=== PATIENT | female | born 1970 | race Caucasian/White ===

== ENCOUNTER 2018-01-07 16:01 | Emergency (ER) | payer OTHER ==
--- NOTE | 2018-01-07 16:42 | EDPHYS ---
Physician Documentation [facility] Name: Bethany Saeed Age: 47 yrs Sex: Female : 1970 Arrival Date: 01/07/2018 Time: 16:03 Bed 6 Private MD: Jorje Carrizales E ED Physician Alex Cuadra HPI: 01/08 02:09 This 47 yrs old Female presents to ER via Ambulatory with complaints of jr8 Facial pain. 02:09 Onset: The symptoms/episode began/occurred gradually, 2 day(s) ago. Severity of jr8 symptoms: At their worst the symptoms were moderate in the emergency department the symptoms are unchanged. The patient has not experienced similar symptoms in the past. The patient has not recently seen a physician. Patient stated that her face on right side started to hurt. Denies fevers. Stated that she could not tolerate pain. Had been using ibuprofen with moderate relief . 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 - Social history:: Smoking status: Patient uses tobacco products, smokes one-half pack cigarettes per day. - Ebola Screening: : No symptoms or risks identified at this time. ROS: 01/08 02:09 Eyes: Negative for injury, pain, redness, and discharge, Neck: Negative for injury, jr8 pain, and swelling, Cardiovascular: Negative for chest pain, palpitations, and edema, Respiratory: Negative for shortness of breath, cough, wheezing, and pleuritic chest pain, Abdomen/GI: Negative for abdominal pain, nausea, vomiting, diarrhea, and constipation, Back: Negative for injury and pain, MS/Extremity: Negative for injury and deformity, Skin: Negative for injury, rash, and discoloration, Neuro: Negative for headache, weakness, numbness, tingling, and seizure. 02:09 ENT: Positive for ear pain, nasal discharge, sinus congestion, sinus pain, Negative for jr8 drainage from ear(s), sore throat, difficulty swallowing, difficulty handling secretions, hoarseness. Exam: 02:09 Head/Face: Normocephalic, atraumatic. Eyes: Pupils equal round and reactive to light, jr8 extra-ocular motions intact. Lids and lashes normal. Conjunctiva and sclera are non-icteric and not injected. Cornea within normal limits. Periorbital areas with no swelling, redness, or edema. ENT: Nares patent. No nasal discharge, no septal abnormalities noted. Tympanic membranes are normal and external auditory canals are clear. Oropharynx with no redness, swelling, or masses, exudates, or evidence of obstruction, uvula midline. Mucous membranes moist. Neck: Trachea midline, no thyromegaly or masses palpated, and no cervical lymphadenopathy. Supple, full range of motion without nuchal rigidity, or vertebral point tenderness. No Meningismus. Cardiovascular: Regular rate and rhythm with a normal S1 and S2. No gallops, murmurs, or rubs. Normal PMI, no JVD. No pulse deficits. Respiratory: Lungs have equal breath sounds bilaterally, clear to auscultation and percussion. No rales, rhonchi or wheezes noted. No increased work of breathing, no retractions or nasal flaring. Abdomen/GI: Soft, non-tender, with normal bowel sounds. No distension or tympany. No guarding or rebound. No evidence of tenderness throughout. Back: No spinal tenderness. No costovertebral tenderness. Full range of motion. Skin: Warm, dry with normal turgor. Normal color with no rashes, no lesions, and no evidence of cellulitis. MS/ Extremity: Pulses equal, no cyanosis. Neurovascular intact. Full, normal range of motion. Neuro: Awake and alert, GCS 15, oriented to person, place, time, and situation. Cranial nerves II-XII grossly intact. Motor strength 5/5 in all extremities. Sensory grossly intact. Cerebellar exam normal. Normal gait. Vital Signs: 01/07 16:20 BP 122 / 82; Pulse 101; Resp 18; Temp 97.1; Pulse Ox 97% on R/A; Weight 117.93 kg; jb4 Height 5 ft. 6 in. (167.64 cm); Pain 3/10; 16:20 Body Mass Index 41.96 (117.93 kg, 167.64 cm) jake MDM: 16:20 Patient medically screened. jr8 16:39 Data reviewed: vital signs, nurses notes, and as a result, I will discharge patient. jr8 Data interpreted: Pulse oximetry: on room air is 100 %. Interpretation: normal. Counseling: I had a detailed discussion with the patient and/or guardian regarding: the historical points, exam findings, and any diagnostic results supporting the discharge/admit diagnosis, the need for outpatient follow up, a dentist, a family practitioner, to return to the emergency department if symptoms worsen or persist or if there are any questions or concerns that arise at home. 16:39 ED course: TMJ pain, otitis externa, otitis media, cellulitis, dentalgia, dental jr8 abscess, sinus infection, lymphadenitis, zoster, trigeminal neuralgia, parotiditis . Administered Medications: No medications were administered Disposition: 18:46 Co-signature as Attending Physician, Alex Cuadra MD. Disposition: 01/07/18 16:41 Discharged to Home. Impression: Atypical facial pain, Acute sinusitis. - Condition is Stable. - Discharge Instructions: Pain Without a Known Cause, Sinusitis, Adult. - Prescriptions for Ibuprofen 800 mg Oral Tablet - take 1 tablet by ORAL route every 8 hours As needed take with food; 30 tablet. Zithromax Z- Víctor 250 mg Oral Tablet - take 1 tablet by ORAL route as directed for 5 days Day 1 - take two (2) tablets one time. Day 2, 3, 4 , 5 take one (1) tablet once daily.; 6 tablet. - Medication Reconciliation Form, Thank You Letter, Antibiotic Education, Prescription Opioid Use form. - Follow up: Jorje Carrizales MD; When: 5 - 6 days; Reason: Recheck today's complaints, Continuance of care, Re-evaluation by your physician. - Problem is new. - Symptoms have improved. Signatures: Magen Mix PA PA jr8 Manav Jim, RN RN Alex Ly MD MD Corrections: (The following items were deleted from the chart) 16:42 16:20 Immunization history: Adult Immunizations Last tetanus immunization: unknown, jake joseph 16:47 16:41 01/07/2018 16:41 Discharged to Home. Impression: Atypical facial pain; Acute jb4 sinusitis. Condition is Stable. Forms are Medication Reconciliation Form, Thank You Letter, Antibiotic Education, Prescription Opioid Use. Follow up: Jorje Carrizales; When: 5 - 6 days; Reason: Recheck today's complaints, Continuance of care, Re-evaluation by your physician. Problem is new. Symptoms have improved. jr8 01/08 02:12 02:09 Eyes: Negative for injury, pain, redness, and discharge, ENT: Negative for jr8 injury, pain, and discharge, Neck: Negative for injury, pain, and swelling, Cardiovascular: Negative for chest pain, palpitations, and edema, Respiratory: Negative for shortness of breath, cough, wheezing, and pleuritic chest pain, Abdomen/GI: Negative for abdominal pain, nausea, vomiting, diarrhea, and constipation, Back: Negative for injury and pain, MS/Extremity: Negative for injury and deformity, Skin: Negative for injury, rash, and discoloration, Neuro: Negative for headache, weakness, numbness, tingling, and seizure, jr8
--- NOTE | 2018-01-07 16:42 | ER ---
Nurse's Notes [facility] Name: Bethany Saeed Age: 47 yrs Sex: Female : 1970 Arrival Date: 01/07/2018 Time: 16:03 Bed 6 Private MD: Jorje Carrizales E Diagnosis: Atypical facial pain;Acute sinusitis Presentation: 01/07 16:25 Presenting complaint: Patient states: The right side of my face hurts and I do not know jb4 if it's tooth related or a sinus issue.". Transition of care: patient was received from another setting of care (hospital). Onset of symptoms was January 04, 2018. 16:25 Method Of Arrival: Ambulatory jb4 16:25 Risk Assessment: Do you want to hurt yourself or someone else? Patient reports no jb4 desire to harm self or others. Initial Sepsis Screen: Does the patient meet any 2 criteria? HR > 90 bpm. Yes Does the patient have a suspected source of infection? No. Patient's initial sepsis screen is negative. Care prior to arrival: None. 16:25 Acuity: ROE 4 jb4 Triage Assessment: 16:20 General: Appears in no apparent distress. uncomfortable, Behavior is calm, cooperative, jb4 appropriate for age. Pain: Complains of pain in Right side of the face. 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 - Social history:: Smoking status: Patient uses tobacco products, smokes one-half pack cigarettes per day. - Ebola Screening: : No symptoms or risks identified at this time. Screenin:39 Abuse screen: Denies threats or abuse. Nutritional screening: No deficits noted. jb4 Tuberculosis screening: No symptoms or risk factors identified. Fall Risk None identified. Assessment: 16:28 General: Appears in no apparent distress. uncomfortable, Behavior is calm, cooperative, jb4 appropriate for age. Pain: Complains of pain in Right side of the face Pain does not radiate. Pain currently is 3 out of 10 on a pain scale. at worst was 7 out of 10 on a pain scale. Quality of pain is described as throbbing, Pain began 2-3 days ago. Is intermittent. Neuro: Level of Consciousness is awake, alert, obeys commands, Oriented to person, place, time, situation. Cardiovascular: Patient's skin is warm and dry. Respiratory: Airway is patent Respiratory effort is even, unlabored, Respiratory pattern is regular, symmetrical. GI: No signs and/or symptoms were reported involving the gastrointestinal system. : No signs and/or symptoms were reported regarding the genitourinary system. EENT: Oral mucosa is moist. Poor dentition noted. Throat is clear. Derm: Skin is intact, Skin is pink, warm \\T\\ dry. Musculoskeletal: No signs and/or symptoms reported regarding the musculoskeletal system. Vital Signs: 16:20 BP 122 / 82; Pulse 101; Resp 18; Temp 97.1; Pulse Ox 97% on R/A; Weight 117.93 kg; jb4 Height 5 ft. 6 in. (167.64 cm); Pain 3/10; 16:20 Body Mass Index 41.96 (117.93 kg, 167.64 cm) jb4 ED Course: 16:03 Patient arrived in ED. mr 16:04 Jorje Carrizales MD is Private Physician. mr 16:20 Manav Jim, RN is Primary Nurse. jb4 16:20 [facility]agen Mix [facility]. jr8 16:20 Alex Cuadra MD is Attending Physician. jr8 16:20 Arm band placed on left wrist. jb4 16:33 Triage completed. jb4 16:39 Patient has correct armband on for positive identification. Bed in low position. Call jb4 light in reach. Side rails up X 1. Pulse ox on. NIBP on. 16:41 Jorje Carrizales MD is Referral Physician. jr8 16:46 No provider procedures requiring assistance completed. Patient did not have IV access jb4 during this emergency room visit. Administered Medications: No medications were administered Outcome: 16:41 Discharge ordered by . jr8 16:46 Discharged to home ambulatory. jb4 16:46 Condition: stable 16:46 Discharge instructions given to patient, Instructed on discharge instructions, follow up and referral plans. medication usage, Demonstrated understanding of instructions, follow-up care, medications, Prescriptions given X 2. 16:47 Patient left the ED. jb4 Signatures: Stefanie Araujo Josh, PA PA jr8 Manav Jim RN RN jb4 Corrections: (The following items were deleted from the chart) 16:42 16:20 Immunization history: Adult Immunizations Last tetanus immunization: unknown, jbDolores jb4
[2018-01-07 17:03] VITALS: BP 122/82; TEMP 97.1; O2SAT 97
== END 2018-01-07 16:47 | disposition home or self-care (01) ==
LOC: ER 16:01
DX: G50.1 Atypical facial pain (principal); J01.90 Acute sinusitis, unspecified; F17.210 Nicotine dependence, cigarettes, uncomplicated; Z88.0 Allergy status to penicillin; Z88.2 Allergy status to sulfonamides; E03.9 Hypothyroidism, unspecified; E11.40 Type 2 diabetes mellitus with diabetic neuropathy, unspecified; L40.9 Psoriasis, unspecified
CPT/HCPCS: 99283

== ENCOUNTER 2019-02-11 14:01 | Emergency (ER) | payer OTHER ==
--- NOTE | 2019-02-11 14:46 | RAD REPORT ---
EXAM DESCRIPTION: RAD - Ankle Right 3 View - 02/11/2019 2:31 pm CLINICAL HISTORY: Persistent common non traumatic right ankle pain COMPARISON: None. FINDINGS: No fracture, dislocation or periosteal reaction. No joint effusion seen. No joint space na rrowing. Moderate-sized plantar spur present. No soft tissue abnormality. IMPRESSION: Moderate-sized plantar spur of the right calcaneus.
--- NOTE | 2019-02-11 15:07 | ER ---
Nurse's Notes [facility] Name: Bethany Saeed Age: 48 yrs Sex: Female : 1970 Arrival Date: 02/11/2019 Time: 14:04 Bed 15 Private MD: Jorje Carrizales E Diagnosis: Pain in right foot Presentation: 02/11 14:07 Presenting complaint: Patient states: I have been having pain in my right foot for a la1 month or two. Transition of care: patient was not received from another setting of care. Onset of symptoms was February 11, 2019. Risk Assessment: Do you want to hurt yourself or someone else? Patient reports no desire to harm self or others. Initial Sepsis Screen: Does the patient meet any 2 criteria? No. Patient's initial sepsis screen is negative. Does the patient have a suspected source of infection? No. Patient's initial sepsis screen is negative. Care prior to arrival: None. 14:07 Method Of Arrival: Ambulatory la1 14:07 Acuity: ROE 4 la1 Historical: - Allergies: 14:07 PENICILLINS; la1 14:07 Sulfa (Sulfonamide Antibiotics); la1 - PMHx: 14:07 Bronchitis; Hypothyroidism; neuropathy; NIDDM,; psorasis; la1 - Immunization history:: Adult Immunizations up to date. - Social history:: Smoking status: Patient/guardian denies using tobacco. - Ebola Screening: : No symptoms or risks identified at this time. Screenin:15 Abuse screen: Denies threats or abuse. Nutritional screening: No deficits noted. rb1 Tuberculosis screening: No symptoms or risk factors identified. Fall Risk No fall in past 12 months (0 pts). Secondary diagnosis (15 points) impaired mobility, No IV (0 pts). Ambulatory Aid- None/Bed Rest/Nurse Assist (0 pts). Gait- Impaired (20 pts.). Mental Status- Oriented to own ability (0 pts). Total Quinn Fall Scale indicates Low Risk Score (25-44 pts). Fall prevention measures have been instituted. Side Rails Up X 2 Placed close to Nursing Station 1:1 attendant Assigned to Pt. Frequent Obs/Assesments occuring As available Patient and Family Educated on Fall Prevention Program and strategies. Assessment: 14:15 General: Appears in no apparent distress. comfortable, Behavior is calm, cooperative. rb1 Pain: Complains of pain in right ankle Pain currently is 8 out of 10 on a pain scale. Neuro: Level of Consciousness is awake, alert, obeys commands, Oriented to person, place, time, situation, Reports numbness in right leg and left leg tingling. Cardiovascular: Capillary refill < 3 seconds is brisk in bilateral fingers. Respiratory: Airway is patent Respiratory effort is even, unlabored, Respiratory pattern is regular, symmetrical. GI: No signs and/or symptoms were reported involving the gastrointestinal system. : No signs and/or symptoms were reported regarding the genitourinary system. Derm: Skin is pink, warm \T\ dry. Musculoskeletal: wears braces on bilateral lower extremities. Pt. reports not being able to walk without them. 15:15 Reassessment: Patient appears in no apparent distress at this time. No changes from rb1 previously documented assessment. Vital Signs: 14:09 Pulse 88; Resp 16; Temp 97.1; Pulse Ox 100% on R/A; Weight 108.41 kg; Height 5 ft. 7 la1 in. (170.18 cm); 14:10 BP 123 / 89; la1 15:09 BP 134 / 98; Pulse 94; Resp 19; Temp 97.9(O); Pulse Ox 100% on R/A; Pain 8/10; rb1 14:09 Body Mass Index 37.43 (108.41 kg, 170.18 cm) la1 ED Course: 14:04 Patient arrived in ED. mr 14:05 Jorje Carrizales MD is Private Physician. mr 14:05 Annie Rodríguez FNP-C is [facility]. kb 14:05 Volodymyr Akhtar MD is Attending Physician. kb 14:08 Triage completed. la1 14:08 Arm band placed on left wrist. la1 14:15 Patient has correct armband on for positive identification. Bed in low position. Call rb1 light in reach. Side rails up X 1. Pulse ox on. NIBP on. 14:30 Ankle Right 3 View In Process Unspecified. EDMS 14:59 Vonnie Germain, RN is Primary Nurse. rb1 15:42 No provider procedures requiring assistance completed. Patient did not have IV access rb1 during this emergency room visit. Administered Medications: 15:35 Drug: traMADol 50 mg Route: PO; rb1 15:42 Follow up: Response: Medication administered at discharge. rb1 Outcome: 15:06 Discharge ordered by . kb 15:42 Patient left the ED. rb1 15:42 Discharged to home ambulatory. rb1 15:42 Condition: stable 15:42 Discharge instructions given to patient, Instructed on discharge instructions, follow up and referral plans. Demonstrated understanding of instructions, follow-up care, Prescriptions given X none Signatures: Dispatcher [employer] EDMS Annie Rodríguez, DANUTA COLEMAN-Dori Laguna Lee, RN RN la1 Vonnie Germain, RN RN rb1
--- NOTE | 2019-02-11 15:07 | EDPHYS ---
Physician Documentation [facility] Name: Bethany Saeed Age: 48 yrs Sex: Female : 1970 Arrival Date: 02/11/2019 Time: 14:04 Bed 15 Private MD: Jorje Carrizales E ED Physician Volodymyr Akhtar HPI: 02/11 15:24 This 48 yrs old Female presents to ER via Ambulatory with complaints of Foot kb Pain. 15:24 The patient presents with pain. The complaints affect the right foot. Context: The kb problem was sustained at an unknown location, the patient can fully bear weight, the patient is able to ambulate. Onset: The symptoms/episode began/occurred 2 week(s) ago. Modifying factors: The symptoms are alleviated by nothing, the symptoms are aggravated by nothing. Associated signs and symptoms: The patient has no apparent associated signs or symptoms. Severity of symptoms: At their worst the symptoms were moderate, in the emergency department the symptoms are unchanged. The patient has not experienced similar symptoms in the past. The patient has not recently seen a physician. Historical: - Allergies: 14:07 PENICILLINS; la1 14:07 Sulfa (Sulfonamide Antibiotics); la1 - PMHx: 14:07 Bronchitis; Hypothyroidism; neuropathy; NIDDM,; psorasis; la1 - Immunization history:: Adult Immunizations up to date. - Social history:: Smoking status: Patient/guardian denies using tobacco. - Ebola Screening: : No symptoms or risks identified at this time. ROS: 15:19 Constitutional: Negative for fever, chills, and weight loss, Neck: Negative for injury, kb pain, and swelling, Cardiovascular: Negative for chest pain, palpitations, and edema, Respiratory: Negative for shortness of breath, cough, wheezing, and pleuritic chest pain, Abdomen/GI: Negative for abdominal pain, nausea, vomiting, diarrhea, and constipation, Back: Negative for injury and pain, Skin: Negative for injury, rash, and discoloration, Neuro: Negative for headache, weakness, numbness, tingling, and seizure. 15:19 MS/extremity: Positive for pain, of the right foot. Exam: 15:23 Constitutional: This is a well developed, well nourished patient who is awake, alert, kb and in no acute distress. Head/Face: Normocephalic, atraumatic. Neck: Trachea midline, no thyromegaly or masses palpated, and no cervical lymphadenopathy. Supple, full range of motion without nuchal rigidity, or vertebral point tenderness. No Meningismus. Chest/axilla: Normal chest wall appearance and motion. Nontender with no deformity. No lesions are appreciated. Cardiovascular: Regular rate and rhythm with a normal S1 and S2. No gallops, murmurs, or rubs. Normal PMI, no JVD. No pulse deficits. Respiratory: Lungs have equal breath sounds bilaterally, clear to auscultation and percussion. No rales, rhonchi or wheezes noted. No increased work of breathing, no retractions or nasal flaring. Abdomen/GI: Soft, non-tender, with normal bowel sounds. No distension or tympany. No guarding or rebound. No evidence of tenderness throughout. Skin: Warm, dry with normal turgor. Normal color with no rashes, no lesions, and no evidence of cellulitis. MS/ Extremity: Pulses equal, no cyanosis. Neurovascular intact. Full, normal range of motion. Neuro: Awake and alert, GCS 15, oriented to person, place, time, and situation. Cranial nerves II-XII grossly intact. Motor strength 5/5 in all extremities. Sensory grossly intact. Cerebellar exam normal. Normal gait. Vital Signs: 14:09 Pulse 88; Resp 16; Temp 97.1; Pulse Ox 100% on R/A; Weight 108.41 kg; Height 5 ft. 7 la1 in. (170.18 cm); 14:10 BP 123 / 89; la1 15:09 BP 134 / 98; Pulse 94; Resp 19; Temp 97.9(O); Pulse Ox 100% on R/A; Pain 8/10; rb1 14:09 Body Mass Index 37.43 (108.41 kg, 170.18 cm) la1 MDM: 14:11 Patient medically screened. kb 15:12 Data reviewed: vital signs, nurses notes. Data interpreted: Pulse oximetry: on room air kb is 100 %. Interpretation: normal. Counseling: I had a detailed discussion with the patient and/or guardian regarding: the historical points, exam findings, and any diagnostic results supporting the discharge/admit diagnosis, radiology results, the need for outpatient follow up, a family practitioner, to return to the emergency department if symptoms worsen or persist or if there are any questions or concerns that arise at home. 02/11 14:29 Order name: Ankle Right 3 View; Complete Time: 15:11 EDWV Administered Medications: 15:35 Drug: traMADol 50 mg Route: PO; rb1 15:42 Follow up: Response: Medication administered at discharge. rb1 Disposition: 18:24 Co-signature as Attending Physician, Volodymyr Akhtar MD. ma2 Disposition: 02/11/19 15:06 Discharged to Home. Impression: Pain in right foot. - Condition is Stable. - Discharge Instructions: Musculoskeletal Pain. - Medication Reconciliation Form, Thank You Letter, Antibiotic Education, Prescription Opioid Use form. - Follow up: Emergency Department; When: As needed; Reason: Worsening of condition. Follow up: Private Physician; When: 2 - 3 days; Reason: Recheck today's complaints, Continuance of care, Re-evaluation by your physician. Signatures: Dispatcher [employer] [facility] Annie Rodríguez, [place]-Anayeli DIESEL ENGINEER-Francisco Carreon RN RN la1 Vonnie Germain, RN RN rb1 Volodymyr Akhtar MD MD ma2 Corrections: (The following items were deleted from the chart) 14:29 14:12 Foot Right 3 View+RAD.RAD.BRZ ordered. [facility] 15:42 15:06 02/11/2019 15:06 Discharged to Home. Impression: Pain in right foot. Condition is rb1 Stable. Forms are Medication Reconciliation Form, Thank You Letter, Antibiotic Education, Prescription Opioid Use. Follow up: Emergency Department; When: As needed; Reason: Worsening of condition. Follow up: Private Physician; When: 2 - 3 days; Reason: Recheck today's complaints, Continuance of care, Re-evaluation by your physician. kb
[2019-02-11] MEDS ORDERED: TRAMADOL HCL 50 MG TAB ONE (15:36)
[2019-02-11 16:21] VITALS: TEMP 97.1; O2SAT 100
[2019-02-11 16:22] VITALS: BP 123/89
== END 2019-02-11 15:42 | disposition home or self-care (01) ==
LOC: ER 14:01
DX: M79.671 Pain in right foot (principal); Z88.0 Allergy status to penicillin; Z88.2 Allergy status to sulfonamides
CPT/HCPCS: 99284

== ENCOUNTER 2019-06-29 21:32 | Emergency (ER) | payer OTHER ==
[2019-06-29] MEDS ORDERED: IPRATROPIUM BROM 0.5MG/2.5ML ONE (22:18)
[2019-06-29] MEDS ORDERED: ALBUTEROL 2.5 MG/3 ML NEB SOL ONE (22:18)
[2019-06-29 22:28] LABS: Absolute Lymphocytes (CBC) 3.5 K/uL (0.7-4.9); Basophils % 0.9 % (0-1.3); Hematocrit 45.4 % (36.0-45.0); Lymphocytes % 37.4 % (15.3-44.8); MPV 11.4 fL (7.6-11.3); RBC Red Blood Cell Count 4.81 M/uL (3.86-4.86)
[2019-06-29 22:31] LABS: Protime INR 1.01
[2019-06-29 22:47] LABS: ALT/SGPT 37 U/L (12-78); AST/SGOT 19 U/L (15-37); Albumin 3.3 g/dL (3.4-5.0); Alkaline Phosphatase 67 U/L (45-117); BUN Blood Urea Nitrogen 13 mg/dL (7-18); Bicarbonate 27 mmol/L (21-32); Bilirubin Direct < 0.1 mg/dL (0-0.2); Bilirubin Total 0.2 mg/dL (0.2-1.0); Glucose Level 103 mg/dL (74-106); Magnesium 2.1 mg/dL (1.8-2.4); NT PRO-BNP 6 pg/mL (<125); Potassium 3.6 mmol/L (3.5-5.1); Protein, Total 7.4 g/dL (6.4-8.2); Sodium Level 141 mmol/L (136-145); Troponin (Emerg Dept Use Only) < 0.02 ng/mL (0.0-0.045)
[2019-06-29] MEDS ORDERED: METHYLPREDNISOLONE 40 MG INJ ONE (22:55)
--- NOTE | 2019-06-30 00:20 | ER ---
Nurse's Notes [facility] Name: Bethany Saeed Age: 49 yrs Sex: Female : 1970 Arrival Date: 06/29/2019 Time: 21:35 Bed 13 Private MD: Diagnosis: Shortness of breath;Cough Presentation: 06/29 21:40 Presenting complaint: Patient states: Cough and shortness of breath since yesterday. aj1 Respirations even and unlabored, no distress noted. Denies fever. Transition of care: patient was not received from another setting of care. Onset of symptoms was June 2019. Risk Assessment: Do you want to hurt yourself or someone else? Patient reports no desire to harm self or others. Initial Sepsis Screen: Does the patient meet any 2 criteria? No. Patient's initial sepsis screen is negative. Does the patient have a suspected source of infection? No. Patient's initial sepsis screen is negative. Care prior to arrival: None. 21:40 Method Of Arrival: Ambulatory aj1 21:40 Acuity: ROE 3 aj1 Triage Assessment: 21:41 General: Appears in no apparent distress. comfortable, Behavior is calm, cooperative, aj1 appropriate for age. Pain: Denies pain. Neuro: Level of Consciousness is awake, alert, obeys commands. Cardiovascular: Patient's skin is warm and dry. Respiratory: Reports shortness of breath Airway is patent Respiratory effort is even, unlabored, Respiratory pattern is regular, symmetrical, Onset: The symptoms/episode began/occurred yesterday, the patient has mild shortness of breath. 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 - Coronavirus screen:: The patient has NOT traveled to [place], [place], or [place] in the past 14 days. - Social history:: Smoking status: Patient reports the use of cigarette tobacco products, smokes one-half pack cigarettes per day. - Ebola Screening: : Patient denies travel to an Ebola-affected area in the 21 days before illness onset. Screenin/08 00:30 Abuse screen: Denies threats or abuse. Denies injuries from another. Nutritional rv screening: No deficits noted. Tuberculosis screening: No symptoms or risk factors identified. Fall Risk None identified. Assessment: 06/29 23:30 General: Appears in no apparent distress. comfortable, Behavior is calm, cooperative. rv 23:30 Pain: Denies pain. Neuro: Level of Consciousness is awake, alert, obeys commands, rv Oriented to person, place, time, situation. Cardiovascular: Patient's skin is warm and dry. Rhythm is regular. Respiratory: Airway is patent Breath sounds with wheezes bilaterally. GI: No signs and/or symptoms were reported involving the gastrointestinal system. : Derm: No signs and/or symptoms reported regarding the dermatologic system. Skin is intact. 06/30 00:30 Reassessment: Patient and/or family updated on plan of care and expected duration. Pain rv level reassessed. Patient is alert, oriented x 3, equal unlabored respirations, skin warm/dry/pink. Respiratory: Airway is patent is compromised Breath sounds are clear bilaterally. Vital Signs: 06/29 21:41 BP 121 / 81; Pulse 89; Resp 18; Temp 97.2; Pulse Ox 99% on R/A; Weight 105.23 kg (R); aj1 Height 5 ft. 6 in. (167.64 cm) (R); Pain 0/10; 06/30 00:28 BP 118 / 79; Pulse 86; Resp 16; Pulse Ox 99% on R/A; rv 06/29 21:41 Body Mass Index 37.45 (105.23 kg, 167.64 cm) aj1 ED Course: 06/29 21:35 Patient arrived in ED. jg7 21:40 Guillermo Young PA is PHCP. cp 21:40 Guillermo Alvares MD is Attending Physician. cp 21:41 Triage completed. aj1 21:41 Arm band placed on Patient placed in an exam room. aj1 22:12 Jose Pradhan, HIRAL is Primary Nurse. rv 22:14 XRAY Chest (1 view) In Process Unspecified. EDMS 23:00 Patient has correct armband on for positive identification. Pulse ox on. NIBP on. rv 23:30 No provider procedures requiring assistance completed. Inserted saline lock: 20 gauge rv in right forearm, using aseptic technique. 06/30 00:31 IV discontinued, intact, bleeding controlled, No redness/swelling at site. Pressure rv dressing applied. Administered Medications: 06/29 22:15 Drug: Albuterol 2.5 mg Route: Inhalation; rv 22:15 Drug: AtroVENT Aerosol 0.5 mg Route: Inhalation; rv 22:58 Drug: SOLU-Medrol 80 mg Route: IVP; Site: right forearm; rv Outcome: 06/30 00:18 Discharge ordered by MD. cp 00:31 Discharged to home ambulatory, with family. rv 00:31 Condition: good 00:31 Discharge instructions given to patient, Instructed on discharge instructions, follow up and referral plans. medication usage, Demonstrated understanding of instructions, follow-up care, medications, Prescriptions given X 3. 00:32 Patient left the ED. rv Signatures: Dispatcher [employer] EDMS Scarlet Cano RN RN aj1 Guillermo Young PA PA Jose Arriaza RN RN rv Nae Doan jg7
--- NOTE | 2019-06-30 00:21 | EDPHYS ---
Physician Documentation [facility] Name: Bethany Saeed Age: 49 yrs Sex: Female : 1970 Arrival Date: 06/29/2019 Time: 21:35 Bed 13 Private MD: ED Physician Guillermo Alvares HPI: 06/29 22:05 This 49 yrs old Female presents to ER via Ambulatory with complaints of cp Breathing Difficulty, Cough. 22:05 The patient has shortness of breath with light activity. Onset: The symptoms/episode cp began/occurred yesterday. Duration: The symptoms are continuous. Associated signs and symptoms: Pertinent positives: non-productive cough, Pertinent negatives: chest pain, diaphoresis, fever. Severity of symptoms: in the emergency department the symptoms are unchanged despite home interventions. 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 - Coronavirus screen:: The patient has NOT traveled to [place], [place], or [place] in the past 14 days. - Social history:: Smoking status: Patient reports the use of cigarette tobacco products, smokes one-half pack cigarettes per day. - Ebola Screening: : Patient denies travel to an Ebola-affected area in the 21 days before illness onset. ROS: 22:10 Constitutional: Negative for body aches, chills, fever, poor PO intake. cp 22:10 Eyes: Negative for injury, pain, redness, and discharge. cp 22:10 ENT: Negative for drainage from ear(s), ear pain, sore throat, difficulty swallowing, difficulty handling secretions. 22:10 Cardiovascular: Negative for chest pain, edema, palpitations. 22:10 Respiratory: Positive for cough, with no reported sputum, shortness of breath, on exertion. Negative for wheezing. 22:10 Abdomen/GI: Negative for abdominal pain, vomiting, diarrhea, constipation, black/tarry stool, rectal bleeding. 22:10 Back: Negative for pain at rest, pain with movement. 22:10 Skin: Negative for rash. 22:10 Neuro: Negative for altered mental status, headache, syncope, weakness. 22:10 All other systems are negative. Exam: 22:20 Constitutional: The patient appears in no acute distress, alert, awake, cp non-diaphoretic, non-toxic, well developed, well nourished. 22:20 Head/Face: Normocephalic, atraumatic. cp 22:20 Eyes: Periorbital structures: appear normal, Pupils: equal, round, and reactive to light and accomodation, Extraocular movements: intact throughout, Conjunctiva: normal, no exudate, no injection, Sclera: no appreciated abnormality, Lids and lashes: appear normal, bilaterally. 22:20 ENT: External ear(s): are unremarkable, Ear canal(s): are normal, clear, TM's: bulging, is not appreciated, bilaterally, dullness, bilaterally, erythema, is not appreciated, bilaterally, Nose: is normal, Mouth: Lips: moist, Oral mucosa: pink and intact, moist, Posterior pharynx: is normal, airway is patent, no erythema, no exudate. 22:20 Neck: ROM/movement: is normal, is supple, without pain, no range of motions limitations, no nuchal rigidity. 22:20 Chest/axilla: Inspection: normal, Palpation: is normal, no crepitus, no tenderness. 22:20 Cardiovascular: Rate: normal, Rhythm: regular. 22:20 Respiratory: the patient does not display signs of respiratory distress, Respirations: normal, no use of accessory muscles, no retractions, no splinting, no tachypnea, labored breathing, is not present, Breath sounds: bronchial sounds, that are mild, are heard diffusely, decreased breath sounds, that are mild, diffuse, stridor, is not appreciated, wheezing: is not appreciated. 22:20 Abdomen/GI: Exam negative for discomfort, distension, guarding, Inspection: abdomen appears normal. 22:20 Back: pain, is absent, ROM is normal. 22:20 Skin: no rash present. 22:20 Neuro: Orientation: to person, place \T\ time. Mentation: is normal, Motor: moves all fours, strength is normal. Vital Signs: 21:41 BP 121 / 81; Pulse 89; Resp 18; Temp 97.2; Pulse Ox 99% on R/A; Weight 105.23 kg (R); aj1 Height 5 ft. 6 in. (167.64 cm) (R); Pain 0/10; 06/30 00:28 BP 118 / 79; Pulse 86; Resp 16; Pulse Ox 99% on R/A; rv 06/29 21:41 Body Mass Index 37.45 (105.23 kg, 167.64 cm) aj1 MDM: 06/29 21:44 Patient medically screened. wallace 22:20 Differential diagnosis: asthma, Bronchitis CHF exacerbation, Chronic Obstructive cp Pulmonary Disease pneumonia, pulmonary edema, Pulmonary Embolism Unstable Angina. 06/30 00:18 Data reviewed: vital signs, nurses notes. cp 00:18 Antibiotic administration: Not indicated, the patient does not have an appreciated cp infiltrate. 00:18 Test interpretation: by ED physician or midlevel provider: ECG, plain radiologic cp studies. Counseling: I had a detailed discussion with the patient and/or guardian regarding: the historical points, exam findings, and any diagnostic results supporting the discharge/admit diagnosis, lab results, radiology results, the need for outpatient follow up, a family practitioner, to return to the emergency department if symptoms worsen or persist or if there are any questions or concerns that arise at home. Response to treatment: the patient's symptoms have markedly improved after treatment, VSS. Cough and shortness of breath improved after breathing treatment, and as a result, I will discharge patient. 06/29 22:03 Order name: Basic Metabolic Panel; Complete Time: 23:09 cp 06/29 23:01 Interpretation: Normal except: CL 108; GFR 51. cp 06/29 22:03 Order name: CBC with Diff; Complete Time: 22:35 cp 06/29 22:28 Interpretation: Normal except: HGB 15.3; HCT 45.4; MPV 11.4. cp 06/29 22:03 Order name: LFT's; Complete Time: 23:09 cp 02 23:01 Interpretation: Normal except: ALB 3.3; GLOB 4.1; A/G 0.8. cp 06/29 22:03 Order name: Magnesium; Complete Time: 23:09 cp 06/29 22:03 Order name: NT PRO-BNP; Complete Time: 23:09 cp 06/29 22:03 Order name: PT-INR; Complete Time: 23:09 cp / 22:03 Order name: Troponin (emerg Dept Use Only); Complete Time: 23:09 cp 06/29 22:03 Order name: XRAY Chest (1 view) cp 06/29 22:03 Order name: Influenza Screen (a \T\ B); Complete Time: 23:09 cp / 23:37 Order name: D-Dimer; Complete Time: 00:10 cp 06/30 00:10 Interpretation: Reviewed. cp 06/29 23:37 Order name: LAB Add On cp 06/29 22:03 Order name: EKG; Complete Time: 22:04 cp 06/29 22:03 Order name: Cardiac monitoring; Complete Time: 23:40 cp 06/29 22:03 Order name: EKG - Nurse/Tech; Complete Time: 23:40 cp 06/29 22:03 Order name: IV Saline Lock; Complete Time: 23:40 cp 06/29 22:03 Order name: Labs collected and sent; Complete Time: 23:40 cp 06/29 22:03 Order name: O2 Per Protocol; Complete Time: 23:41 cp 06/29 22:03 Order name: O2 Sat Monitoring; Complete Time: 23:41 cp Administered Medications: 06/29 22:15 Drug: Albuterol 2.5 mg Route: Inhalation; rv 22:15 Drug: AtroVENT Aerosol 0.5 mg Route: Inhalation; rv 22:58 Drug: SOLU-Medrol 80 mg Route: IVP; Site: right forearm; rv Disposition: 06/30 03:55 Co-signature as Attending Physician, Guillermo Alvares MD I agree with the assessment and wallace plan of care. Chart complete. Disposition: 06/30/19 00:18 Discharged to Home. Impression: Shortness of breath, Cough. - Condition is Stable. - Discharge Instructions: Shortness of Breath, Cough, Adult. - Prescriptions for Tessalon Perles 100 mg Oral Capsule - take 2 capsule by ORAL route every 8 hours As needed; 20 capsule. Prednisone 20 mg Oral Tablet - take 2 tablet by ORAL route once daily for 5 days; 10 tablet. Albuterol Sulfate 90 mcg/actuation - inhale 1-2 puff by INHALATION route every 4-6 hours; 1 Inhaler. - Medication Reconciliation Form, Thank You Letter, Antibiotic Education, Prescription Opioid Use form. - Follow up: Private Physician; When: 2 - 3 days; Reason: Recheck today's complaints. - Problem is new. - Symptoms have improved. Signatures: Dispatcher [employer] Scarlet Daily, RN RN aj1 Guillermo Alvares MD MD cha Page, Corey, PA PA cp Jose Pradhan, RN RN rv Corrections: (The following items were deleted from the chart) 00:32 00:18 06/30/2019 00:18 Discharged to Home. Impression: Shortness of breath; Cough. rv Condition is Stable. Forms are Medication Reconciliation Form, Thank You Letter, Antibiotic Education, Prescription Opioid Use. Follow up: Private Physician; When: 2 - 3 days; Reason: Recheck today's complaints. Problem is new. Symptoms have improved. cp
[2019-06-30 01:07] VITALS: TEMP 97.2; O2SAT 99
[2019-06-30 01:08] VITALS: BP 118/79
--- NOTE | 2019-06-30 12:45 | RAD REPORT ---
EXAM DESCRIPTION: Jeff Single View06/29/2019 10:13 pm CLINICAL HISTORY: sob COMPARISON: 2016 FINDINGS: The lungs appear clear of acute infiltrate. The heart is normal size IMPRESSION: No acute abnormalities displayed
== END 2019-06-30 00:32 | disposition home or self-care (01) ==
LOC: ER 21:32
DX: R05 Cough (principal); F17.210 Nicotine dependence, cigarettes, uncomplicated; Z88.0 Allergy status to penicillin; Z88.2 Allergy status to sulfonamides
CPT/HCPCS: 85025; 80048; 36415; 83735; 85610; 85379; 80076; 84484; 83880; 87804 ×2; 71045; 96374; 99284; J2920

== ENCOUNTER 2019-08-23 14:00 | Emergency (ER) | payer OTHER ==
--- NOTE | 2019-08-23 15:18 | EDPHYS ---
Physician Documentation [facility] Name: Bethany Saeed Age: 49 yrs Sex: Female : 1970 Arrival Date: 08/23/2019 Time: 14:03 Bed 8 Private MD: Jorje Carrizales E ED Physician Volodymyr Akhtar HPI: 08/22 15:16 This 49 yrs old Female presents to ER via Ambulatory with complaints of ma2 Throat problem. 15:16 The patient or guardian reports cough. Onset: The symptoms/episode began/occurred ma2 gradually, just prior to arrival, 1 day(s) ago. Severity of symptoms: At their worst the symptoms were mild, in the emergency department the symptoms are unchanged. Associated signs and symptoms: Pertinent negatives: ear ache, nausea, rhinorrhea. The patient has experienced similar episodes in the past. 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 - Social history:: Smoking status: Patient reports the use of cigarette tobacco products, smokes one-half pack cigarettes per day, Patient/guardian denies using alcohol, street drugs. - Family history:: not pertinent. ROS: 15:16 Constitutional: Negative for fever, chills, and weight loss. ma2 15:16 All other systems are negative. Exam: 15:16 Constitutional: This is a well developed, well nourished patient who is awake, alert, ma2 and in no acute distress. Head/Face: Normocephalic, atraumatic. Eyes: Pupils equal round and reactive to light, extra-ocular motions intact. Lids and lashes normal. Conjunctiva and sclera are non-icteric and not injected. Cornea within normal limits. Periorbital areas with no swelling, redness, or edema. ENT: Nares patent. No nasal discharge, no septal abnormalities noted. Tympanic membranes are normal and external auditory canals are clear. Oropharynx with no redness, swelling, or masses, exudates, or evidence of obstruction, uvula midline. Mucous membranes moist. Neck: Trachea midline, no thyromegaly or masses palpated, and no cervical lymphadenopathy. Supple, full range of motion without nuchal rigidity, or vertebral point tenderness. No Meningismus. Chest/axilla: Normal chest wall appearance and motion. Nontender with no deformity. No lesions are appreciated. Cardiovascular: Regular rate and rhythm with a normal S1 and S2. No gallops, murmurs, or rubs. Normal PMI, no JVD. No pulse deficits. Respiratory: Lungs have equal breath sounds bilaterally, clear to auscultation and percussion. No rales, rhonchi or wheezes noted. No increased work of breathing, no retractions or nasal flaring. Abdomen/GI: Soft, non-tender, with normal bowel sounds. No distension or tympany. No guarding or rebound. No evidence of tenderness throughout. MS/ Extremity: Pulses equal, no cyanosis. Neurovascular intact. Full, normal range of motion. Neuro: Awake and alert, GCS 15, oriented to person, place, time, and situation. Cranial nerves II-XII grossly intact. Motor strength 5/5 in all extremities. Sensory grossly intact. Cerebellar exam normal. Normal gait. Vital Signs: 14:30 BP 134 / 88; Pulse 82; Resp 17; Temp 98.8; Pulse Ox 100% ; Weight 105.69 kg; Pain 0/10; jl7 MDM: 14:39 Patient medically screened. ma2 15:16 Differential Diagnosis: Bronchitis Upper Respiratory Infection Sinusitis Pharyngitis. ma2 Data reviewed: vital signs, nurses notes. Counseling: I had a detailed discussion with the patient and/or guardian regarding: the historical points, exam findings, and any diagnostic results supporting the discharge/admit diagnosis, the presence of at least one elevated blood pressure reading (>120/80) during this emergency department visit, the need for outpatient follow up. Response to treatment: the patient's symptoms have mildly improved after treatment. 08/22 14:40 Order name: Strep; Complete Time: 15:11 ma2 08/22 14:40 Order name: Flu ok2 08/22 15:02 Order name: Throat Culture EDMS Administered Medications: No medications were administered Disposition: 08/23/19 15:17 Discharged to Home. Impression: Acute bronchitis. - Condition is Stable. - Discharge Instructions: Acute Bronchitis, Adult. - Prescriptions for Tessalon Perles 100 mg Oral Capsule - take 1 capsule by ORAL route every 8 hours As needed; 15 capsule. - Medication Reconciliation Form, Thank You Letter, Antibiotic Education, Prescription Opioid Use form. - Follow up: Private Physician; When: Tomorrow; Reason: Continuance of care. Signatures: Dispatcher [employer] EDMS Vilma Thompson RN RN Aakash Blackman RN RN jl7 Volodymyr Akhtar MD MD ma2 Corrections: (The following items were deleted from the chart) 15:30 15:17 08/23/2019 15:17 Discharged to Home. Impression: Acute bronchitis. Condition is hb Stable. Forms are Medication Reconciliation Form, Thank You Letter, Antibiotic Education, Prescription Opioid Use. Follow up: Private Physician; When: Tomorrow; Reason: Continuance of care. ma2
--- NOTE | 2019-08-23 15:18 | ER ---
Nurse's Notes [facility] Name: Bethany Saeed Age: 49 yrs Sex: Female : 1970 Arrival Date: 08/23/2019 Time: 14:03 Bed 8 Private MD: Jorje Carrizales E Diagnosis: Acute bronchitis Presentation: 08/22 14:30 Chief complaint: Patient states: Left side of throat feels like something stuck, hard jl7 to swallow, x 3 days; denies fever, cough, shortness of breath. States "When I go to sleep, it goes away. It might be my anxiety, I don't know.". Coronavirus screen: Patient denies fever greater than 100.4F, cough, shortness of breath, or difficulty breathing. Proceed with normal triage process. Ebola Screen: No symptoms or risks identified at this time. Initial Sepsis Screen: Does the patient meet any 2 criteria? No. Patient's initial sepsis screen is negative. Does the patient have a suspected source of infection? No. Patient's initial sepsis screen is negative. Risk Assessment: Do you want to hurt yourself or someone else? Patient reports no desire to harm self or others. Onset of symptoms was August 21, 2019. 14:30 Method Of Arrival: Ambulatory jl7 14:30 Acuity: ROE 3 jl7 Triage Assessment: 14:33 General: Appears in no apparent distress. uncomfortable, Behavior is calm, cooperative, jl7 appropriate for age. Pain: Denies pain. 14:33 Respiratory: Airway is patent Respiratory effort is even, unlabored, Respiratory jl7 pattern is regular, symmetrical. 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 - Social history:: Smoking status: Patient reports the use of cigarette tobacco products, smokes one-half pack cigarettes per day, Patient/guardian denies using alcohol, street drugs. - Family history:: not pertinent. Screenin:45 Abuse screen: Denies threats or abuse. Denies injuries from another. Nutritional hb screening: No deficits noted. Tuberculosis screening: No symptoms or risk factors identified. Fall Risk None identified. Assessment: 14:48 General: Appears in no apparent distress. Behavior is calm, cooperative. Pain: Denies hb pain. Neuro: Level of Consciousness is awake, alert, obeys commands, Oriented to person, place, time, situation. Cardiovascular: Capillary refill < 3 seconds Patient's skin is warm and dry. Respiratory: Airway is patent Respiratory effort is even, unlabored, Respiratory pattern is regular, symmetrical. GI: No signs and/or symptoms were reported involving the gastrointestinal system. : No signs and/or symptoms were reported regarding the genitourinary system. EENT: No signs and/or symptoms were reported regarding the EENT system. Derm: Skin is pink, warm \\T\\ dry. Musculoskeletal: No signs and/or symptoms reported regarding the musculoskeletal system. Vital Signs: 14:30 BP 134 / 88; Pulse 82; Resp 17; Temp 98.8; Pulse Ox 100% ; Weight 105.69 kg; Pain 0/10; jl7 ED Course: 14:03 Patient arrived in ED. mr 14:04 Jorje Carrizales MD is Private Physician. mr 14:32 Triage completed. jl7 14:33 Arm band placed on right wrist. jl7 14:40 Volodymyr Akhtar MD is Attending Physician. ma2 14:45 Vilma Thompson, HIRAL is Primary Nurse. hb 14:45 Patient has correct armband on for positive identification. Bed in low position. Call hb light in reach. Side rails up X 1. 15:29 No provider procedures requiring assistance completed. Patient did not have IV access hb during this emergency room visit. Administered Medications: No medications were administered Outcome: 15:17 Discharge ordered by . ma2 15:29 Discharged to home ambulatory. hb 15:29 Condition: stable 15:29 Discharge instructions given to patient, Instructed on discharge instructions, follow up and referral plans. medication usage, Demonstrated understanding of instructions, follow-up care, medications, Prescriptions given X 1. 15:30 Patient left the ED. hb Signatures: Dori Araujo Heather, RN RN Aakash Blackman RN RN jl7 Volodymyr Akhtar MD MD ma2
[2019-08-23 15:43] VITALS: BP 134/88; TEMP 98.8; O2SAT 100
== END 2019-08-23 15:30 | disposition home or self-care (01) ==
LOC: ER 14:00
DX: J20.9 Acute bronchitis, unspecified (principal); F17.210 Nicotine dependence, cigarettes, uncomplicated; E03.9 Hypothyroidism, unspecified; E11.9 Type 2 diabetes mellitus without complications; F34.1 Dysthymic disorder; Z88.0 Allergy status to penicillin; Z88.2 Allergy status to sulfonamides
CPT/HCPCS: 87070; 87081; 87804; 99282

== ENCOUNTER 2020-01-12 09:09 | Emergency (ER) | payer OTHER ==
[2020-01-12] MEDS ORDERED: ALBUTEROL INHALER 60 PUFF/8 GM IH ONE (11:17)
[2020-01-12] MEDS ORDERED: CEFTRIAXONE/SWI 1gm 1 GM/10 ML SYR ONE (11:17)
[2020-01-12] MEDS ORDERED: dexAMETHasone 10 MG/ML VIAL ONE (11:17)
[2020-01-12] MEDS ORDERED: NA CHLORIDE 0.9% 500 ML ONE (11:17)
[2020-01-12] MEDS ORDERED: FAMOTIDINE 20 MG/2 ML VIAL IV ONE (11:17)
--- NOTE | 2020-01-12 11:53 | RAD REPORT ---
EXAM DESCRIPTION: Jeff Single View01/12/2020 10:29 am CLINICAL HISTORY: cough COMPARISON: June 2019 FINDINGS: The lungs appear clear of acute infiltrate. The heart is normal size IMPRESSION: No acute abnormalities displayed
[2020-01-12 11:56] LABS: Basophils % 2.3 % (0-1.3); Hematocrit 50.8 % (36.0-45.0); Lymphocytes % 17.4 % (15.3-44.8); MPV 11.1 fL (7.6-11.3); RBC Red Blood Cell Count 5.42 M/uL (3.86-4.86)
[2020-01-12] MEDS ORDERED: AZITHROMYCIN IV 500 MG in NA CHLORIDE 0.9% 250 ML IVPB ONE (12:00)
[2020-01-12 12:14] LABS: ALT/SGPT 78 U/L (12-78); AST/SGOT 53 U/L (15-37); Albumin 3.5 g/dL (3.4-5.0); Alkaline Phosphatase 86 U/L (45-117); BUN Blood Urea Nitrogen 9 mg/dL (7-18); Bicarbonate 27 mmol/L (21-32); Bilirubin Direct < 0.1 mg/dL (0-0.2); Bilirubin Total 0.2 mg/dL (0.2-1.0); Glucose Level 100 mg/dL (74-106); Magnesium 2.2 mg/dL (1.8-2.4); NT PRO-BNP 7 pg/mL (<125); Potassium 3.6 mmol/L (3.5-5.1); Protein, Total 8.3 g/dL (6.4-8.2); Sodium Level 139 mmol/L (136-145); Troponin (Emerg Dept Use Only) < 0.02 ng/mL (0.0-0.045)
[2020-01-12] MEDS ORDERED: ASPIRIN 81 MG CHEWABLE TABLET ONE (13:11)
--- NOTE | 2020-01-12 14:19 | RAD REPORT ---
EXAM DESCRIPTION: CT - Chest For Pe Angio - 01/12/2020 1:38 pm CLINICAL HISTORY: Shortness of breath COMPARISON: None. TECHNIQUE: Dynamically enhanced axial 3 mm thick images of the chest were obtained during administra tion of <100> mL Isovue 370 IV contrast. Coronal and oblique reconstruction images were generated and reviewed. Exam utilizes a protocol for optimal evaluation of pulmonary arterial tree. Maximum intensity projections 3D imaging was utilized All CT scans are performed using dose optimization technique as appropriate and may include automated exposure control or mA/KV adjustment according to patient size. FINDINGS: The opacification of pulmonary arteries is somewhat suboptimal. No gross pulmonary embolism. A thoracic aortic aneurysm is not noted. A pleural effusion is not seen. A pericardial effusion is not seen. Mild left upper and lower lobe ground-glass opacity IMPRESSION: Negative for a pulmonary embolism. Mild left lung ground-glass opacity indicative of an alveolitis
--- NOTE | 2020-01-12 14:30 | EDPHYS ---
Physician Documentation [facility] Name: Bethany Saeed Age: 49 yrs Sex: Female : 1970 Arrival Date: 01/12/2020 Time: 09:12 Bed 18 Private MD: Jorje Carrizales E ED Physician Guillermo Alvares HPI: 01/11 10:15 This 49 yrs old Female presents to ER via Ambulatory with complaints of wallace Breathing Difficulty, COVID+. 10:15 The patient has shortness of breath with light activity. Onset: The symptoms/episode wallace began/occurred 2 day(s) ago. Duration: The symptoms are continuous, and are unchanged since they started. The patient's shortness of breath is aggravated by coughing, light activity, is alleviated by rest, application of supplemental oxygen. Associated signs and symptoms: Pertinent positives: non-productive cough. Severity of symptoms: At their worst the symptoms were moderate in the emergency department the symptoms are unchanged. 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 - Social history:: Smoking status: Patient reports the use of cigarette tobacco products, smokes one-half pack cigarettes per day. - Family history:: not pertinent. ROS: 10:15 Constitutional: Negative for fever, chills, and weight loss, Eyes: Negative for injury, wallace pain, redness, and discharge, ENT: Negative for injury, pain, and discharge, Neck: Negative for injury, pain, and swelling, Cardiovascular: Negative for chest pain, palpitations, and edema, Abdomen/GI: Negative for abdominal pain, nausea, vomiting, diarrhea, and constipation, Back: Negative for injury and pain, : Negative for injury, bleeding, discharge, and swelling, MS/Extremity: Negative for injury and deformity, Skin: Negative for injury, rash, and discoloration, Neuro: Negative for headache, weakness, numbness, tingling, and seizure, Psych: Negative for depression, anxiety, suicide ideation, homicidal ideation, and hallucinations, Allergy/Immunology: Negative for hives, rash, and allergies, Endocrine: Negative for neck swelling, polydipsia, polyuria, polyphagia, and marked weight changes, Hematologic/Lymphatic: Negative for swollen nodes, abnormal bleeding, and unusual bruising. 10:15 Respiratory: Positive for cough, shortness of breath, wheezing, expiratory. Exam: 10:15 Constitutional: This is a well developed, well nourished patient who is awake, alert, wallace and in no acute distress. Head/Face: Normocephalic, atraumatic. Eyes: Pupils equal round and reactive to light, extra-ocular motions intact. Lids and lashes normal. Conjunctiva and sclera are non-icteric and not injected. Cornea within normal limits. Periorbital areas with no swelling, redness, or edema. ENT: Nares patent. No nasal discharge, no septal abnormalities noted. Tympanic membranes are normal and external auditory canals are clear. Oropharynx with no redness, swelling, or masses, exudates, or evidence of obstruction, uvula midline. Mucous membranes moist. Neck: Trachea midline, no thyromegaly or masses palpated, and no cervical lymphadenopathy. Supple, full range of motion without nuchal rigidity, or vertebral point tenderness. No Meningismus. Chest/axilla: Normal chest wall appearance and motion. Nontender with no deformity. No lesions are appreciated. Cardiovascular: Regular rate and rhythm with a normal S1 and S2. No gallops, murmurs, or rubs. Normal PMI, no JVD. No pulse deficits. Respiratory: Lungs have equal breath sounds bilaterally, clear to auscultation and percussion. No rales, rhonchi or wheezes noted. No increased work of breathing, no retractions or nasal flaring. Abdomen/GI: Soft, non-tender, with normal bowel sounds. No distension or tympany. No guarding or rebound. No evidence of tenderness throughout. Back: No spinal tenderness. No costovertebral tenderness. Full range of motion. Skin: Warm, dry with normal turgor. Normal color with no rashes, no lesions, and no evidence of cellulitis. MS/ Extremity: Pulses equal, no cyanosis. Neurovascular intact. Full, normal range of motion. Neuro: Awake and alert, GCS 15, oriented to person, place, time, and situation. Cranial nerves II-XII grossly intact. Motor strength 5/5 in all extremities. Sensory grossly intact. Cerebellar exam normal. Normal gait. Psych: Awake, alert, with orientation to person, place and time. Behavior, mood, and affect are within normal limits. 10:15 Musculoskeletal/extremity: ROM: full active range of motion, full passive range of motion, Circulation is intact in all extremities. Sensation intact. Compartment Syndrome exam of affected extremity: is normal. DVT Exam: No signs of deep vein thrombosis. no pain, no swelling, no tenderness, negative Homans' sign noted on exam, no appreciated bluish discoloration, no erythema, no increased warmth. 12:21 ECG was reviewed by the Attending Physician. [facility] Vital Signs: 10:02 BP 122 / 79; Pulse 96; Resp 18 S; Temp 97.8(O); Pulse Ox 99% on R/A; Weight 107.5 kg ca1 (R); Height 5 ft. 6 in. (167.64 cm) (R); Pain 0/10; 10:57 BP 129 / 82; Pulse 97; Resp 15 S; Pulse Ox 99% on R/A; ca1 11:53 BP 115 / 84; Pulse 88; Resp 16 S; Pulse Ox 96% on R/A; ca1 12:57 BP 121 / 81; Pulse 91; Resp 18 S; Pulse Ox 95% on R/A; ca1 13:55 BP 122 / 79; Pulse 95; Resp 17 S; Pulse Ox 99% on R/A; ca1 14:55 BP 124 / 77; Pulse 94; Resp 16 S; Pulse Ox 98% on R/A; ca1 10:02 Body Mass Index 38.25 (107.50 kg, 167.64 cm) ca1 MDM: 09:48 Patient medically screened. [facility] 10:19 Differential diagnosis: Anxiety Reaction asthma, Bronchitis CHF exacerbation, Chronic wallace Obstructive Pulmonary Disease pneumonia, Pneumothorax pulmonary edema, Pulmonary Embolism reactive airway disease, Unstable Angina. Antibiotic administration: Rocephin and Zithromax given. The patient's Wells Deep Vein Thrombosis Score was calculated as follows: Total Score: 0-2 Pts- Low Risk. The patient's pulmonary embolism risk score was calculated as follows: Total Score: 0-2 points. This patient was found to be at low risk for a pulmonary embolism by using the Well's assessment criteria. Immunization status:. Data reviewed: vital signs, nurses notes, lab test result(s), EKG, radiologic studies, plain films. Data interpreted: oral and maxillofacial surgery: rate is 96 beats/min, rhythm is regular, Pulse oximetry: on room air is 99 %. Test interpretation: by ED physician or midlevel provider: ECG, plain radiologic studies. 12:06 Counseling: I had a detailed discussion with the patient and/or guardian regarding: the [facility] historical points, exam findings, and any diagnostic results supporting the discharge/admit diagnosis, lab results, radiology results, the need for outpatient follow up, for definitive care, a supervisor extrusion. ED course: labs and studies reviewed and discussed. 14:30 ED course: left lower lobe mild pneumonitis. [facility] 01/11 10:14 Order name: Basic Metabolic Panel [facility] 01/11 10:14 Order name: CBC with Diff [facility] 01/11 10:14 Order name: LFT's [facility] 01/11 10:14 Order name: Magnesium [facility] 01/11 10:14 Order name: NT PRO-BNP; Complete Time: 12:18 [facility] 01/11 10:14 Order name: Troponin (emerg Dept Use Only); Complete Time: 12:18 [facility] 01/11 10:14 Order name: XRAY Chest (1 view); Complete Time: 12:05 [facility] 01/11 10:14 Order name: D-Dimer; Complete Time: 12:18 [facility] 01/11 10:14 Order name: Blood Culture Adult (2) [facility] 01/11 10:15 Order name: Basic Metabolic Panel; Complete Time: 12:18 [facility] 01/11 10:15 Order name: CBC with Automated Diff; Complete Time: 12:18 [facility] 01/11 10:15 Order name: Liver (Hepatic) Function; Complete Time: 12:18 [facility] 01/11 10:15 Order name: Magnesium; Complete Time: 12:18 [facility] 01/11 12:19 Order name: CT Chest For PE Angio; Complete Time: 14:28 [facility] 01/11 10:14 Order name: EKG; Complete Time: 10:15 [facility] 01/11 10:14 Order name: Cardiac monitoring; Complete Time: 11:51 [facility] 01/11 10:14 Order name: EKG - Nurse/Tech; Complete Time: 11:51 [facility] 01/11 10:14 Order name: IV Saline Lock; Complete Time: 11:51 [facility] 01/11 10:14 Order name: Labs collected and sent; Complete Time: 11:51 [facility] 01/11 10:14 Order name: O2 Per Protocol; Complete Time: 10:59 [facility] 01/11 10:14 Order name: O2 Sat Monitoring; Complete Time: 10:58 [facility] EC:21 Rate is 82 beats/min. Rhythm is regular. QRS [place]ord is Normal. CA interval is normal. QRS wallace interval is normal. QT interval is normal. No Q waves. T waves are Normal. T waves are Inverted in leads V1, V2, V3, V4. Clinical impression: Abnormal EKG without significant change and No evidence of ischemia. Interpreted by me. Reviewed by me. Administered Medications: 11:14 Drug: Albuterol HFA Inhaler 4 puffs Route: Inhalation; ca1 11:16 Drug: NS 0.9% 500 ml Route: IV; Rate: bolus; Site: right antecubital; ca1 11:45 Follow up: Response: No adverse reaction; IV Status: Completed infusion; IV Intake: ca1 500ml 11:16 Drug: Decadron - Dexamethasone 6 mg Route: IVP; Site: right antecubital; ca1 13:07 Follow up: Response: No adverse reaction ca1 11:16 Drug: Pepcid 20 mg Route: IVP; Site: right antecubital; ca1 13:08 Follow up: Response: No adverse reaction ca1 11:27 Drug: Rocephin 1 grams Route: IV; Rate: per protocol; Site: left antecubital; ca1 13:07 Follow up: Response: No adverse reaction; IV Status: Completed infusion ca1 13:06 Drug: Aspirin 162 mg Route: PO; ca1 14:57 Follow up: Response: No adverse reaction ca1 13:07 Drug: Zithromax 500 mg Route: IVPB; Infused Over: 1 hrs; Site: right antecubital; ca1 14:57 Follow up: Response: No adverse reaction; IV Status: Completed infusion; IV Intake: ca1 250ml Disposition: 01/12/20 14:29 Discharged to Home. Impression: Dyspnea, SARS-associated coronavirus as the cause of diseases classified elsewhere - Covid 19, Tobacco abuse counseling, Tobacco use, Pneumonia due to other specified bacteria - left lower lobe pneumonitis. - Condition is Stable. - Discharge Instructions: Community-Acquired Pneumonia, Adult, Shortness of Breath, Steps to Quit Smoking, Smoking Hazards, Shortness of Breath, [id number], Community-Acquired Pneumonia, Adult, [id number], Steps to Quit Smoking, [id number], Aspirin and Your Heart, COVID-19. - Prescriptions for dexamethasone 2 mg Oral tablet - take 1 tablet by ORAL route 3 times per day; 15 tablet. Pepcid 20 mg Oral Tablet - take 1 tablet by ORAL route every 12 hours for 10 days; 20 tablet. Albuterol Sulfate 90 mcg/actuation - inhale 1-2 puff by INHALATION route every 4-6 hours; 1 Inhaler. Zithromax 500 mg Oral Tablet - take 1 tablet by ORAL route once daily for 4 days; 4 tablet. - Medication Reconciliation Form, Thank You Letter, Antibiotic Education, Prescription Opioid Use form. - Follow up: Jorje Carrizales; When: 2 - 3 days; Reason: Recheck today's complaints, Continuance of care, Re-evaluation by your physician. Follow up: Dustin Ambriz; When: 2 - 3 days; Reason: Recheck today's complaints, Re-evaluation by your physician. - Problem is new. - Symptoms have improved. Signatures: Dispatcher [employer] EDNE Guillermo Alvares MD MD cha Acob, Cheryl, RN RN ca1 Corrections: (The following items were deleted from the chart) 15:28 14:29 01/12/2020 14:29 Discharged to Home. Impression: Dyspnea; SARS-associated ca1 coronavirus as the cause of diseases classified elsewhere - Covid 19; Tobacco abuse counseling; Tobacco use; Pneumonia due to other specified bacteria - left lower lobe pneumonitis. Condition is Stable. Discharge Instructions: Shortness of Breath, Steps to Quit Smoking, Smoking Hazards, Shortness of Breath, [id number], Steps to Quit Smoking, [id number], Aspirin and Your Heart, COVID-19. Prescriptions for dexamethasone 2 mg Oral tablet - take 1 tablet by ORAL route 3 times per day; 15 tablet, Pepcid 20 mg Oral Tablet - take 1 tablet by ORAL route every 12 hours for 10 days; 20 tablet, Albuterol Sulfate 90 mcg/actuation - inhale 1-2 puff by INHALATION route every 4-6 hours; 1 Inhaler, Zithromax 500 mg Oral Tablet - take 1 tablet by ORAL route once daily for 4 days; 4 tablet. and Forms are Medication Reconciliation Form, Thank You Letter, Antibiotic Education, Prescription Opioid Use. Follow up: Jorje Carrizales; When: 2 - 3 days; Reason: Recheck today's complaints, Continuance of care, Re-evaluation by your physician. Follow up: Dustin Ambriz; When: 2 - 3 days; Reason: Recheck today's complaints, Re-evaluation by your physician. Problem is new. Symptoms have improved. wallace
--- NOTE | 2020-01-12 14:30 | ER ---
Nurse's Notes [facility] Name: Bethany Saeed Age: 49 yrs Sex: Female : 1970 Arrival Date: 01/12/2020 Time: 09:12 Bed 18 Private MD: Jorje Carrizales E Diagnosis: Dyspnea;SARS-associated coronavirus as the cause of diseases classified elsewhere-Covid 19;Tobacco abuse counseling;Tobacco use;Pneumonia due to other specified bacteria-left lower lobe pneumonitis Presentation: 01/11 10:02 Chief complaint: Patient states: SOB since last night. Cough today. Covid-19+, ca1 collection date 01/07/2020 in prep for Colonoscopy. No symptoms reported prior to last night. Coronavirus screen: Client denies travel out of the [place] in the last 14 days. cough unrelated to allergies, shortness of breath, vomiting. Client presents with at least one sign or symptom that may indicate coronavirus-19. Standard/surgical mask placed on the client. Provider contacted for isolation considerations. Client reports previous positive COVID test result. Date of collection: January 07, 2020 GI center Staff notified of need for isolation. Ebola Screen: Patient negative for fever greater than or equal to 101.5 degrees Fahrenheit, and additional compatible Ebola Virus Disease symptoms Patient denies exposure to infectious person. Patient denies travel to an Ebola-affected area in the 21 days before illness onset. No symptoms or risks identified at this time. Initial Sepsis Screen: Does the patient meet any 2 criteria? No. Patient's initial sepsis screen is negative. Does the patient have a suspected source of infection? No. Patient's initial sepsis screen is negative. Risk Assessment: Do you want to hurt yourself or someone else? Patient reports no desire to harm self or others. Onset of symptoms was January 12, 2020. 10:02 Method Of Arrival: Ambulatory ca1 10:02 Acuity: ROE 3 ca1 Triage Assessment: 10:05 General: Appears in no apparent distress. comfortable, Behavior is calm, cooperative, ca1 appropriate for age. Pain: Denies pain. EENT: No deficits noted. Neuro: Level of Consciousness is awake, alert, obeys commands, Oriented to person, place, time, situation, Appropriate for age. Cardiovascular: Heart tones S1 S2 present Capillary refill < 3 seconds Patient's skin is warm and dry. Respiratory: Reports shortness of breath at rest on exertion cough that is non-productive. Respiratory: Onset: The symptoms/episode began/occurred yesterday, the patient has mild shortness of breath. GI: Abdomen is round non-distended, Bowel sounds present X 4 quads. Abd is soft and non tender X 4 quads. Reports vomiting. : No deficits noted. No signs and/or symptoms were reported regarding the genitourinary system. Derm: Skin is intact, is healthy with good turgor, Skin is pink, warm \T\ dry. Musculoskeletal: Circulation, motion, and sensation intact. Capillary refill < 3 seconds. 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 - Social history:: Smoking status: Patient reports the use of cigarette tobacco products, smokes one-half pack cigarettes per day. - Family history:: not pertinent. Screenin:07 Abuse screen: Denies threats or abuse. Denies injuries from another. Nutritional ca1 screening: No deficits noted. Tuberculosis screening: No symptoms or risk factors identified. Fall Risk None identified. Assessment: 10:07 Reassessment: SEE triage notes. Cardiovascular: Rhythm is regular. Respiratory: Airway ca1 is patent Respiratory effort is even, unlabored, Respiratory pattern is regular, symmetrical, Breath sounds are clear bilaterally. 10:57 Reassessment: Patient appears in no apparent distress at this time. Patient and/or ca1 family updated on plan of care and expected duration. Pain level reassessed. Patient is alert, oriented x 3, equal unlabored respirations, skin warm/dry/pink. 11:53 Reassessment: Patient appears in no apparent distress at this time. Patient and/or ca1 family updated on plan of care and expected duration. Pain level reassessed. Patient is alert, oriented x 3, equal unlabored respirations, skin warm/dry/pink. 12:57 Reassessment: Patient appears in no apparent distress at this time. Patient and/or ca1 family updated on plan of care and expected duration. Pain level reassessed. Patient is alert, oriented x 3, equal unlabored respirations, skin warm/dry/pink. 13:55 Reassessment: Patient appears in no apparent distress at this time. Patient and/or ca1 family updated on plan of care and expected duration. Pain level reassessed. Patient is alert, oriented x 3, equal unlabored respirations, skin warm/dry/pink. 14:55 Reassessment: Patient appears in no apparent distress at this time. Patient and/or ca1 family updated on plan of care and expected duration. Pain level reassessed. Patient is alert, oriented x 3, equal unlabored respirations, skin warm/dry/pink. Patient states feeling better. Patient states symptoms have improved. Vital Signs: 10:02 BP 122 / 79; Pulse 96; Resp 18 S; Temp 97.8(O); Pulse Ox 99% on R/A; Weight 107.5 kg ca1 (R); Height 5 ft. 6 in. (167.64 cm) (R); Pain 0/10; 10:57 BP 129 / 82; Pulse 97; Resp 15 S; Pulse Ox 99% on R/A; ca1 11:53 BP 115 / 84; Pulse 88; Resp 16 S; Pulse Ox 96% on R/A; ca1 12:57 BP 121 / 81; Pulse 91; Resp 18 S; Pulse Ox 95% on R/A; ca1 13:55 BP 122 / 79; Pulse 95; Resp 17 S; Pulse Ox 99% on R/A; ca1 14:55 BP 124 / 77; Pulse 94; Resp 16 S; Pulse Ox 98% on R/A; ca1 10:02 Body Mass Index 38.25 (107.50 kg, 167.64 cm) ca1 ED Course: 09:12 Patient arrived in ED. ag5 09:12 Jorje Carrizales MD is Private Physician. ag5 09:48 Guillermo Alvares MD is Attending Physician. wallace 10:01 Joi Padron, HIRAL is Primary Nurse. ca1 10:05 Triage completed. ca1 10:05 Arm band placed on right wrist. ca1 10:07 Patient has correct armband on for positive identification. Bed in low position. Call ca1 light in reach. Side rails up X2. Pulse ox on. NIBP on. 10:29 XRAY Chest (1 view) In Process Unspecified. EDMS 11:15 No provider procedures requiring assistance completed. Inserted saline lock: 20 gauge ca1 in right antecubital area, using aseptic technique. Blood collected. 11:15 Initial lab(s) drawn, by me, sent to lab. First set of blood cultures drawn by me. ca1 11:25 Inserted saline lock: 22 gauge in left antecubital area, using aseptic technique. Blood ca1 collected. 11:25 Second set of blood cultures drawn by me. ca1 13:39 CT Chest For PE Angio In Process Unspecified. EDMS 14:28 Jorje Carrizales MD is Referral Physician. wallace 14:28 Dustin Ambriz MD is Referral Physician. wallace 15:28 IV discontinued, intact, bleeding controlled, No redness/swelling at site. Pressure ca1 dressing applied. Administered Medications: 11:14 Drug: Albuterol HFA Inhaler 4 puffs Route: Inhalation; ca1 11:16 Drug: NS 0.9% 500 ml Route: IV; Rate: bolus; Site: right antecubital; ca1 11:45 Follow up: Response: No adverse reaction; IV Status: Completed infusion; IV Intake: ca1 500ml 11:16 Drug: Decadron - Dexamethasone 6 mg Route: IVP; Site: right antecubital; ca1 13:07 Follow up: Response: No adverse reaction ca1 11:16 Drug: Pepcid 20 mg Route: IVP; Site: right antecubital; ca1 13:08 Follow up: Response: No adverse reaction ca1 11:27 Drug: Rocephin 1 grams Route: IV; Rate: per protocol; Site: left antecubital; ca1 13:07 Follow up: Response: No adverse reaction; IV Status: Completed infusion ca1 13:06 Drug: Aspirin 162 mg Route: PO; ca1 14:57 Follow up: Response: No adverse reaction ca1 13:07 Drug: Zithromax 500 mg Route: IVPB; Infused Over: 1 hrs; Site: right antecubital; ca1 14:57 Follow up: Response: No adverse reaction; IV Status: Completed infusion; IV Intake: ca1 250ml Intake: 11:45 IV: 500ml; Total: 500ml. ca1 14:57 IV: 250ml; Total: 750ml. ca1 Outcome: 14:29 Discharge ordered by . wallace 15:28 Discharged to home ambulatory. ca1 15:28 Condition: stable 15:28 Discharge instructions given to patient, Instructed on discharge instructions, follow up and referral plans. medication usage, Demonstrated understanding of instructions, follow-up care, medications, Prescriptions given X 4. 15:28 Patient left the ED. ca1 Signatures: Dispatcher [employer] Guillermo Aguilar MD MD cha Acob, Cheryl RN RN ca1 Eric Zhao ag5
== END 2020-01-12 15:28 | disposition home or self-care (01) ==
LOC: ER 09:09
DX: U07.1 COVID-19 (principal); J15.9 Unspecified bacterial pneumonia; R06.00 Dyspnea, unspecified; Z71.6 Tobacco abuse counseling; Z72.0 Tobacco use
CPT/HCPCS: 93005; 87040 ×2; 85025; 80048; 36415; 83735; 85379; 80076; 84484; 83880; 71275; 71045; 99284; Q9967; J0456; J1100; J0696; J7050; J7040

== ENCOUNTER 2021-06-22 15:04 | Emergency (ER) | payer OTHER ==
--- OUTSIDE RECORDS SUMMARY | 2021-06-22 15:08 | XMS REPORT | Continuity of Care Document ---
:1970 Author Organization [facility] t Address [address] [place] [address] Dr. [address]. [address] [place] [address] Care Team Providers Name Role Phone Gila Carrizales Primary Care Physician Doctor Unassigned, Name Attending Clinician Unavailable JOÃO Attending Clinician Unavailable Fartun FRANCISCO S Attending Clinician Wander Naik MD Attending Clinician Wander NAIK Attending Clinician Unavailable Ritu TRONCOSO Attending Clinician Unavailable Danial Duenas DO Attending Clinician Niranjan Sotomayor Main Attending Clinician Unavailable João PEREIRA Attending Clinician Payers Payer Name Policy Type Policy Number Effective Date Expiration Date S ource Problems Condition Condition Condition Status Onset Resolution Last Treating Co mments Source Name Details Category Date Date Treatment Clinician Date Right knee Right knee Disease Active U nivers pain pain 2-25 ity of 00:00: [place] [facility] Low back Low back Disease Active Unive rs pain pain 2-25 ity of 00:00: [place] 00 [facility] Lumbago Lumbago Disease Active Univers 3-13 ity of 00:00: [place] [facility] Thoracic Thoracic Disease Active Overview: Un jerson or or 3-13 Formattin ity of lumbosacra lumbosacra 00:00: g of this [place] l neuritis l neuritis 00 note Me dical or or might be Branch radiculiti radiculiti different s, s, from the unspecifie unspecifie original. d d BLE radiculit is Disturbanc Disturbanc Disease Active Overview : Univers e of skin e of skin 08-02 Formattin i ty of sensation sensation 00:00: g of this [place] 00 note Medical might be Branch different from the original. BLE Muscle Muscle Disease Active Overview: Univer s weakness weakness 08-02 Formattin ity of (generaliz (generaliz 00:00: g of this [place] ed) ed) 00 note Medical might be Branch different from the original. BUE weakness; Distal worse than proximal leg weakness Abnormalit Abnormalit Disease Active U nivers y of gait y of gait 13 ity of 00:00: [place] [facility] Cramp of Cramp of Disease Active Unive rs limb limb 08-02 ity of 00:00: [place] 00 [facility] Cervicalgi Cervicalgi Disease Active U nivers a a -13 ity of 00:00: [place] 00 [facility] Allergies, Adverse Reactions, Alerts Allergy Allergy Status Severity Reaction(s) Onset Inactive Treating Comm ents Source Name Type Date Date Clinician Sulfamet Propensi Active Rash Univer s hoxazole ty to 3-07 ity of -Trimeth adverse 00:00: [place] oprim reaction 00 Medical s Branch SULFAMET DRUG Active Rash Univers HOXAZOLE 3-07 ity of -TRIMETH 00:00: [place] OPRIM 00 Medical Branch PENICILL Drug Active ITCHING Univers INS Class 3-07 ity of 00:00: [place] 00 Medical Branch SULFA Drug Active Rash Univers (SULFONA Class 3-07 ity of MIDE 00:00: [place] ANTIBIOT 00 Medical ICS) Branch Penicill Propensi Active Itching Unive rs ins ty to 3-07 ity of adverse 00:00: [place] reaction 00 Medical s Branch Sulfa Propensi Active Rash Univers (Sulfona ty to 3-07 ity of mide adverse 00:00: [place] Antibiot reaction 00 Medica l ics) s Branch Social History Social Habit Start Date Stop Date Quantity Comments Source History of tobacco Cigarette Smoker University of use [facility] Exposure to Not sure University of SARS-CoV-2 (event) [facility] Cigarettes smoked 2020-11-06 2020-11-06 Univers ity of current (pack per 00:00:00 00:00:00 [facility] ) - Reported Branch Tobacco use and 2020-11-06 2020-11-06 Never used Universit y of exposure 00:00:00 00:00:00 [facility] Alcohol intake 2020-11-06 2020-11-06 Current University of 00:00:00 00:00:00 non-drinker of [facility] alcohol Branch (finding) Sex Ass[birth year] At [birth year] Universit y of 00:00:00 00:00:00 [facility] Smoking Status Start Date Stop Date Source Current every day smoker 2020-11-06 00:00:00 Uni versity of [facility] Medications Ordered Filled Start Stop Current Ordering Indication Dosage Frequency Signature Comments Components Source Medication Medication Date Date Medication? Clinician (SIG) Name Name OMEPRAZOLE Yes 40mg Take 40 mg U nivers ORAL 1-11 by mouth ity of 17:42: daily. [address] OMEPRAZOLE Yes 40mg Take 40 mg U nivers ORAL 1-11 by mouth ity of 17:42: daily. [address] OMEPRAZOLE Yes 40mg Take 40 mg U nivers ORAL 1-11 by mouth ity of 17:42: daily. [address] OMEPRAZOLE Yes 40mg Take 40 mg U nivers ORAL 1-11 by mouth ity of 17:42: daily. [address] OMEPRAZOLE Yes 40mg Take 40 mg U nivers ORAL 1-11 by mouth ity of 17:42: daily. [address] OMEPRAZOLE Yes 40mg Take 40 mg U nivers ORAL 1-11 by mouth ity of 17:42: daily. [address] OMEPRAZOLE Yes 40mg Take 40 mg U nivers ORAL 1-11 by mouth ity of 17:42: daily. [address] OMEPRAZOLE Yes 40mg Take 40 mg U nivers ORAL 1-11 by mouth ity of 17:42: daily. [address] OMEPRAZOLE Yes 40mg Take 40 mg U nivers ORAL 1-11 by mouth ity of 17:42: daily. [address] OMEPRAZOLE Yes 40mg Take 40 mg U nivers ORAL 1-11 by mouth ity of 17:42: daily. [place] 09 [facility] triamterene Yes 1{tbl} Take 1 Un jerson -hydrochlor 1-11 tablet by ity of othiazid 17:40: mouth [place] (MAXZIDE-25 48 daily. Medica l ) 37.5-25 Branch mg tablet tetrahydroz 0 Yes 1[drp] Place 1 U nivers oline 1-11 Drop in ity of HCl/zinc 17:40: each eye [place] sulf (EYE 48 daily. In Medic al DROPS both eyes Branch ALLERGY RELIEF OPHTHALMIC) cetirizine Yes 10mg Take 10 mg U nivers (ZYRTEC) 10 1-11 by mouth ity of mg tablet 17:40: daily. [address] fluticasone Yes 2{spray Use 2 Un jerson (FLONASE 1-11 } Sprays in ity of SENSIMIST) 17:40: each [place] 27.5 48 nostril Medical mcg/actuati daily. Branch on nasal spray vitamin C Yes 500mg Take 500 Uni vers with jihan 1-11 mg by ity of hips 17:40: mouth [place] (VITAMIN C) 48 daily. Medica l 1,000 mg Branch tablet ALBUTEROL Yes PRN Univers SULFATE 1-11 ity of INHALE 17:40: [address] BACLOFEN 10 0 Yes 1 tab TID U nivers MG ORAL TAB 1-11 ity of 17:40: [address] HYDROCODONE Yes 1-2 tabs Un jerson -ACETAMINOP 1-11 PRN pain ity of HEN 7.5-500 17:40: [place] MG ORAL TAB [address] [place] [address] triamterene 0 Yes 1{tbl} Take 1 Un jerson -hydrochlor 1-11 tablet by ity of othiazid 17:40: mouth [place] (MAXZIDE-25 48 daily. Medica l ) 37.5-25 Branch mg tablet tetrahydroz 0 Yes 1[drp] Place 1 U nivers oline 1-11 Drop in ity of HCl/zinc 17:40: each eye [place] sulf (EYE 48 daily. In Medic al DROPS both eyes Branch ALLERGY RELIEF OPHTHALMIC) cetirizine Yes 10mg Take 10 mg U nivers (ZYRTEC) 10 1-11 by mouth ity of mg tablet 17:40: daily. [address] fluticasone Yes 2{spray Use 2 Un jerson (FLONASE 1-11 } Sprays in ity of SENSIMIST) 17:40: each [place] 27.5 48 nostril Medical mcg/actuati daily. Branch on nasal spray vitamin C Yes 500mg Take 500 Uni vers with jihan 1-11 mg by ity of hips 17:40: mouth [place] (VITAMIN C) 48 daily. Medica l 1,000 mg Branch tablet ALBUTEROL Yes PRN Univers SULFATE 1-11 ity of INHALE 17:40: [address] BACLOFEN 10 Yes 1 tab TID U nivers MG ORAL TAB 1-11 ity of 17:40: [address] HYDROCODONE Yes 1-2 tabs Un jerson -ACETAMINOP 1-11 PRN pain ity of HEN 7.5-500 17:40: [place] MG ORAL TAB [address] [place] [address] triamterene Yes 1{tbl} Take 1 Un jerson -hydrochlor 1-11 tablet by ity of othiazid 17:40: mouth [place] (MAXZIDE-25 48 daily. Medica l ) 37.5-25 Branch mg tablet tetrahydroz Yes 1[drp] Place 1 U nivers oline 1-11 Drop in ity of HCl/zinc 17:40: each eye [place] sulf (EYE 48 daily. In Medic al DROPS both eyes [place] ALLERGY RELIEF OPHTHALMIC) cetirizine Yes 10mg Take 10 mg U nivers (ZYRTEC) 10 1-11 by mouth ity of mg tablet 17:40: daily. [address] fluticasone Yes 2{spray Use 2 Un jerson (FLONASE 1-11 } Sprays in ity of SENSIMIST) 17:40: each [place] 27.5 48 nostril Medical mcg/actuati daily. Branch on nasal spray vitamin C Yes 500mg Take 500 Uni vers with jihan 1-11 mg by ity of hips 17:40: mouth [place] (VITAMIN C) 48 daily. Medica l 1,000 mg Branch tablet ALBUTEROL Yes PRN Univers SULFATE 1-11 ity of INHALE 17:40: [address] BACLOFEN 10 Yes 1 tab TID U nivers MG ORAL TAB 1-11 ity of 17:40: [address] HYDROCODONE Yes 1-2 tabs Un jerson -ACETAMINOP 1-11 PRN pain ity of HEN 7.5-500 17:40: [place] MG ORAL TAB 48 Medical Branch triamterene Yes 1{tbl} Take 1 Un jerson -hydrochlor 1-11 tablet by ity of othiazid 17:40: mouth [place] (MAXZIDE-25 48 daily. Medica l ) 37.5-25 Branch mg tablet tetrahydroz Yes 1[drp] Place 1 U nivers oline 1-11 Drop in ity of HCl/zinc 17:40: each eye [place] sulf (EYE 48 daily. In Medic al DROPS both eyes Branch ALLERGY RELIEF OPHTHALMIC) cetirizine Yes 10mg Take 10 mg U nivers (ZYRTEC) 10 1-11 by mouth ity of mg tablet 17:40: daily. [address] fluticasone Yes 2{spray Use 2 Un jerson (FLONASE 1-11 } Sprays in ity of SENSIMIST) 17:40: each [place] 27.5 48 nostril Medical mcg/actuati daily. Branch on nasal spray vitamin C Yes 500mg Take 500 Uni vers with jihan 1-11 mg by ity of hips 17:40: mouth [place] (VITAMIN C) 48 daily. Medica l 1,000 mg Branch tablet ALBUTEROL Yes PRN Univers SULFATE 1-11 ity of INHALE 17:40: [address] BACLOFEN 10 Yes 1 tab TID U nivers MG ORAL TAB 1-11 ity of 17:40: [address] HYDROCODONE Yes 1-2 tabs Un jerson -ACETAMINOP 1-11 PRN pain ity of HEN 7.5-500 17:40: [place] MG ORAL TAB 48 Medical Branch triamterene Yes 1{tbl} Take 1 Un jerson -hydrochlor 1-11 tablet by ity of othiazid 17:40: mouth [place] (MAXZIDE-25 48 daily. Medica l ) 37.5-25 Branch mg tablet tetrahydroz Yes 1[drp] Place 1 U nivers oline 1-11 Drop in ity of HCl/zinc 17:40: each eye [place] sulf (EYE 48 daily. In Medic al DROPS both eyes Branch ALLERGY RELIEF OPHTHALMIC) cetirizine Yes 10mg Take 10 mg U nivers (ZYRTEC) 10 1-11 by mouth ity of mg tablet 17:40: daily. [address] fluticasone Yes 2{spray Use 2 Un jerson (FLONASE 1-11 } Sprays in ity of SENSIMIST) 17:40: each [place] 27.5 48 nostril Medical mcg/actuati daily. Branch on nasal spray vitamin C Yes 500mg Take 500 Uni vers with jihan 1-11 mg by ity of hips 17:40: mouth [place] (VITAMIN C) 48 daily. Medica l 1,000 mg Branch tablet ALBUTEROL Yes PRN Univers SULFATE 1-11 ity of INHALE 17:40: [address] BACLOFEN 10 Yes 1 tab TID U nivers MG ORAL TAB 1-11 ity of 17:40: [address] HYDROCODONE Yes 1-2 tabs Un jerson -ACETAMINOP 1-11 PRN pain ity of HEN 7.5-500 17:40: [place] MG ORAL TAB Medical Branch triamterene Yes 1{tbl} Take 1 Un jerson -hydrochlor 1-11 tablet by ity of othiazid 17:40: mouth [place] (MAXZIDE-25 48 daily. Medica l ) 37.5-25 Branch mg tablet tetrahydroz Yes 1[drp] Place 1 U nivers oline 1-11 Drop in ity of HCl/zinc 17:40: each eye [place] sulf (EYE 48 daily. In Medic al DROPS both eyes Branch ALLERGY RELIEF OPHTHALMIC) cetirizine Yes 10mg Take 10 mg U nivers (ZYRTEC) 10 1-11 by mouth ity of mg tablet 17:40: daily. [address] fluticasone Yes 2{spray Use 2 Un jerson (FLONASE 1-11 } Sprays in ity of SENSIMIST) 17:40: each [place] 27.5 48 nostril Medical mcg/actuati daily. Branch on nasal spray vitamin C Yes 500mg Take 500 Uni vers with jihan 1-11 mg by ity of hips 17:40: mouth [place] (VITAMIN C) 48 daily. Medica l 1,000 mg Branch tablet ALBUTEROL Yes PRN Univers SULFATE 1-11 ity of INHALE 17:40: [address] BACLOFEN 10 Yes 1 tab TID U nivers MG ORAL TAB 1-11 ity of 17:40: [address] HYDROCODONE Yes 1-2 tabs Un jerson -ACETAMINOP 1-11 PRN pain ity of HEN 7.5-500 17:40: [place] MG ORAL TAB [address] [place] [address] triamterene Yes 1{tbl} Take 1 Un jerson -hydrochlor 1-11 tablet by ity of othiazid 17:40: mouth [place] (MAXZIDE-25 48 daily. Medica l ) 37.5-25 Branch mg tablet tetrahydroz Yes 1[drp] Place 1 U nivers oline 1-11 Drop in ity of HCl/zinc 17:40: each eye [place] sulf (EYE 48 daily. In Medic al DROPS both eyes Branch ALLERGY RELIEF OPHTHALMIC) cetirizine Yes 10mg Take 10 mg U nivers (ZYRTEC) 10 1-11 by mouth ity of mg tablet 17:40: daily. [address] fluticasone Yes 2{spray Use 2 Un jerson (FLONASE 1-11 } Sprays in ity of SENSIMIST) 17:40: each [place] 27.5 48 nostril Medical mcg/actuati daily. Branch on nasal spray vitamin C Yes 500mg Take 500 Uni vers with jihan 1-11 mg by ity of hips 17:40: mouth [place] (VITAMIN C) 48 daily. Medica l 1,000 mg Branch tablet ALBUTEROL Yes PRN Univers SULFATE 1-11 ity of INHALE 17:40: [address] Branch BACLOFEN 10 Yes 1 tab TID U nivers MG ORAL TAB 1-11 ity of 17:40: [address] Branch HYDROCODONE Yes 1-2 tabs Un jerson -ACETAMINOP 1-11 PRN pain ity of HEN 7.5-500 17:40: [place] MG ORAL TAB Medical Branch triamterene Yes 1{tbl} Take 1 Un jerson -hydrochlor 1-11 tablet by ity of othiazid 17:40: mouth [place] (MAXZIDE-25 48 daily. Medica l ) 37.5-25 Branch mg tablet tetrahydroz Yes 1[drp] Place 1 U nivers oline 1-11 Drop in ity of HCl/zinc 17:40: each eye [place] sulf (EYE 48 daily. In Medic al DROPS both eyes Branch ALLERGY RELIEF OPHTHALMIC) cetirizine Yes 10mg Take 10 mg U nivers (ZYRTEC) 10 1-11 by mouth ity of mg tablet 17:40: daily. [address] fluticasone Yes 2{spray Use 2 Un jerson (FLONASE 1-11 } Sprays in ity of SENSIMIST) 17:40: each [place] 27.5 48 nostril Medical mcg/actuati daily. Branch on nasal spray vitamin C Yes 500mg Take 500 Uni vers with jihan 1-11 mg by ity of hips 17:40: mouth [place] (VITAMIN C) 48 daily. Medica l 1,000 mg Branch tablet ALBUTEROL Yes PRN Univers SULFATE 1-11 ity of INHALE 17:40: [address] BACLOFEN 10 Yes 1 tab TID U nivers MG ORAL TAB 1-11 ity of 17:40: [address] HYDROCODONE Yes 1-2 tabs Un jerson -ACETAMINOP 1-11 PRN pain ity of HEN 7.5-500 17:40: [place] MG ORAL TAB 48 Medical Branch triamterene Yes 1{tbl} Take 1 Un jerson -hydrochlor 1-11 tablet by ity of othiazid 17:40: mouth [place] (MAXZIDE-25 48 daily. Medica l ) 37.5-25 Branch mg tablet tetrahydroz Yes 1[drp] Place 1 U nivers oline 1-11 Drop in ity of HCl/zinc 17:40: each eye [place] sulf (EYE 48 daily. In Medic al DROPS both eyes Branch ALLERGY RELIEF OPHTHALMIC) cetirizine Yes 10mg Take 10 mg U nivers (ZYRTEC) 10 1-11 by mouth ity of mg tablet 17:40: daily. [address] fluticasone Yes 2{spray Use 2 Un jerson (FLONASE 1-11 } Sprays in ity of SENSIMIST) 17:40: each [place] 27.5 48 nostril Medical mcg/actuati daily. Branch on nasal spray vitamin C Yes 500mg Take 500 Uni vers with jihan 1-11 mg by ity of hips 17:40: mouth [place] (VITAMIN C) 48 daily. Medica l 1,000 mg Branch tablet ALBUTEROL Yes PRN Univers SULFATE 1-11 ity of INHALE 17:40: [address] BACLOFEN 10 Yes 1 tab TID U nivers MG ORAL TAB 1-11 ity of 17:40: [address] HYDROCODONE Yes 1-2 tabs Un jerson -ACETAMINOP 1-11 PRN pain ity of HEN 7.5-500 17:40: [place] MG ORAL TAB [address] [place] [address] Branch triamterene Yes 1{tbl} Take 1 Un jerson -hydrochlor 1-11 tablet by ity of othiazid 17:40: mouth [place] (MAXZIDE-25 48 daily. Medica l ) 37.5-25 Branch mg tablet tetrahydroz Yes 1[drp] Place 1 U nivers oline 1-11 Drop in ity of HCl/zinc 17:40: each eye [place] sulf (EYE 48 daily. In Medic al DROPS both eyes Branch ALLERGY RELIEF OPHTHALMIC) cetirizine Yes 10mg Take 10 mg U nivers (ZYRTEC) 10 1-11 by mouth ity of mg tablet 17:40: daily. [place] 48 Medical Branch fluticasone Yes 2{spray Use 2 Un jerson (FLONASE 1-11 } Sprays in ity of SENSIMIST) 17:40: each [place] 27.5 48 nostril Medical mcg/actuati daily. Branch on nasal spray vitamin C Yes 500mg Take 500 Uni vers with jihan 1-11 mg by ity of hips 17:40: mouth [place] (VITAMIN C) 48 daily. Medica l 1,000 mg Branch tablet ALBUTEROL Yes PRN Univers SULFATE 1-11 ity of INHALE 17:40: [place] 48 [facility] BACLOFEN 10 Yes 1 tab TID U nivers MG ORAL TAB 1-11 ity of 17:40: [address] HYDROCODONE Yes 1-2 tabs Un jerson -ACETAMINOP 1-11 PRN pain ity of HEN 7.5-500 17:40: [place] MG ORAL TAB 48 [facility] ALEVE ORAL 2020- No 2 tabs PRN Univers 1-11 -11 JASMINE ity of 17:40: 00:00 [place] 48 :00 Medical [place] ALEVE ORAL 2020- No 2 tabs PRN Univers 1-11 -11 JASMINE ity of 17:40: 00:00 [place] 48 :00 [facility] ALBUTEROL Yes PRN Univers SULFATE 8-15 ity of INHALE 20:09: [address] BACLOFEN 10 Yes 1 tab TID U nivers MG ORAL TAB 8-15 ity of 20:09: [address] HYDROCODONE Yes 1-2 tabs Un jerson -ACETAMINOP 8-15 PRN pain ity of HEN 7.5-500 20:09: [place] MG ORAL TAB 36 Medical [place] ALEVE ORAL Yes 2 tabs PRN U nivers 8-15 JASMINE ity of 20:09: [address] triamterene Yes 1{tbl} Take 1 Un jerson -hydrochlor 8-15 tablet by ity of othiazid 20:09: mouth [place] (MAXZIDE-25 36 daily. Medica l ) 37.5-25 Branch mg tablet Cholecalcif Yes 1{capsu Take 1 U nivers scott, 4-27 le} capsule by ity of Vitamin D3, 00:00: mouth [place] (VITAMIN 00 daily. Medical D3) 2,000 Branch unit capsule levothyroxi Yes 50ug Take 50 Uni vers ne 4-27 mcg by ity of (SYNTHROID) 00:00: mouth [place] 50 mcg 00 every Medical tablet morning. Branch Cholecalcif Yes 1{capsu Take 1 U nivers scott, 4-27 le} capsule by ity of Vitamin D3, 00:00: mouth [place] (VITAMIN 00 daily. Medical D3) 2,000 Branch unit capsule levothyroxi Yes 50ug Take 50 Uni vers ne 4-27 mcg by ity of (SYNTHROID) 00:00: mouth [place] 50 mcg 00 every Medical tablet morning. Branch Cholecalcif Yes 1{capsu Take 1 U nivers scott, 4-27 le} capsule by ity of Vitamin D3, 00:00: mouth [place] (VITAMIN 00 daily. Medical D3) 2,000 Branch unit capsule levothyroxi Yes 50ug Take 50 Uni vers ne 4-27 mcg by ity of (SYNTHROID) 00:00: mouth [place] 50 mcg 00 every Medical tablet morning. Branch Cholecalcif Yes 1{capsu Take 1 U nivers scott, 4-27 le} capsule by ity of Vitamin D3, 00:00: mouth [place] (VITAMIN 00 daily. Medical D3) 2,000 Branch unit capsule levothyroxi Yes 50ug Take 50 Uni vers ne 4-27 mcg by ity of (SYNTHROID) 00:00: mouth [place] 50 mcg 00 every Medical tablet morning. Branch Cholecalcif Yes 1{capsu Take 1 U nivers scott, 4-27 le} capsule by ity of Vitamin D3, 00:00: mouth [place] (VITAMIN 00 daily. Medical D3) 2,000 Branch unit capsule levothyroxi Yes 50ug Take 50 Uni vers ne 4-27 mcg by ity of (SYNTHROID) 00:00: mouth [place] 50 mcg 00 every Medical tablet morning. Branch Cholecalcif Yes 1{capsu Take 1 U nivers scott, 4-27 le} capsule by ity of Vitamin D3, 00:00: mouth [place] (VITAMIN 00 daily. Medical D3) 2,000 Branch unit capsule levothyroxi Yes 50ug Take 50 Uni vers ne 4-27 mcg by ity of (SYNTHROID) 00:00: mouth [place] 50 mcg 00 every Medical tablet morning. Branch Cholecalcif Yes 1{capsu Take 1 U nivers scott, 4-27 le} capsule by ity of Vitamin D3, 00:00: mouth [place] (VITAMIN 00 daily. Medical D3) 2,000 Branch unit capsule levothyroxi Yes 50ug Take 50 Uni vers ne 4-27 mcg by ity of (SYNTHROID) 00:00: mouth [place] 50 mcg 00 every Medical tablet morning. Branch Cholecalcif Yes 1{capsu Take 1 U nivers scott, 4-27 le} capsule by ity of Vitamin D3, 00:00: mouth [place] (VITAMIN 00 daily. Medical D3) 2,000 Branch unit capsule levothyroxi Yes 50ug Take 50 Uni vers ne 4-27 mcg by ity of (SYNTHROID) 00:00: mouth [place] 50 mcg 00 every Medical tablet morning. Branch Cholecalcif Yes 1{capsu Take 1 U nivers scott, 4-27 le} capsule by ity of Vitamin D3, 00:00: mouth [place] (VITAMIN 00 daily. Medical D3) 2,000 Branch unit capsule levothyroxi Yes 50ug Take 50 Uni vers ne 4-27 mcg by ity of (SYNTHROID) 00:00: mouth [place] 50 mcg 00 every Medical tablet morning. Branch Cholecalcif Yes 1{capsu Take 1 U nivers scott, 4-27 le} capsule by ity of Vitamin D3, 00:00: mouth [place] (VITAMIN 00 daily. Medical D3) 2,000 Branch unit capsule levothyroxi Yes 50ug Take 50 Uni vers ne 4-27 mcg by ity of (SYNTHROID) 00:00: mouth [place] 50 mcg 00 every Medical tablet morning. Branch Cholecalcif Yes 1{capsu Take 1 U nivers scott, 4-27 le} capsule by ity of Vitamin D3, 00:00: mouth [place] (VITAMIN 00 daily. Medical D3) 2,000 Branch unit capsule levothyroxi Yes 50ug Take 50 Uni vers ne 4-27 mcg by ity of (SYNTHROID) 00:00: mouth [place] 50 mcg 00 every Medical tablet morning. Branch nortriptyli 2016-0 Yes 75mg Take 75 mg Univers ne 3-31 by mouth ity of (PAMELOR) 00:00: at [place] 25 mg 00 bedtime. Medical capsule Branch nortriptyli 2016-0 Yes 75mg Take 75 mg Univers ne 3-31 by mouth ity of (PAMELOR) 00:00: at [place] 25 mg 00 bedtime. Medical capsule Branch nortriptyli 2016-0 Yes 75mg Take 75 mg Univers ne 3-31 by mouth ity of (PAMELOR) 00:00: at [place] 25 mg 00 bedtime. Medical capsule Branch nortriptyli 2016-0 Yes 75mg Take 75 mg Univers ne 3-31 by mouth ity of (PAMELOR) 00:00: at [place] 25 mg 00 bedtime. Medical capsule Branch nortriptyli 2016-0 Yes 75mg Take 75 mg Univers ne 3-31 by mouth ity of (PAMELOR) 00:00: at [place] 25 mg 00 bedtime. Medical capsule Branch nortriptyli 2016-0 Yes 75mg Take 75 mg Univers ne 3-31 by mouth ity of (PAMELOR) 00:00: at [place] 25 mg 00 bedtime. Medical capsule Branch nortriptyli 2016-0 Yes 75mg Take 75 mg Univers ne 3-31 by mouth ity of (PAMELOR) 00:00: at [place] 25 mg 00 bedtime. Medical capsule Branch nortriptyli 2016-0 Yes 75mg Take 75 mg Univers ne 3-31 by mouth ity of (PAMELOR) 00:00: at [place] 25 mg 00 bedtime. Medical capsule Branch nortriptyli 2016-0 Yes 75mg Take 75 mg Univers ne 3-31 by mouth ity of (PAMELOR) 00:00: at [place] 25 mg 00 bedtime. Medical capsule Branch nortriptyli 2016-0 Yes 25mg Take 25 mg Univers ne 3-31 by mouth ity of (PAMELOR) 00:00: at [place] 25 mg 00 bedtime. Medical capsule Branch nortriptyli 2016-0 Yes 75mg Take 75 mg Univers ne 3-31 by mouth ity of (PAMELOR) 00:00: at [place] 25 mg 00 bedtime. Medical capsule Branch escitalopra 2016-0 Yes 10mg Take 10 mg Univers m oxalate 2-17 by mouth ity of (LEXAPRO) 00:00: daily. [place] 10 mg 00 Medical tablet Branch escitalopra Yes 10mg Take 10 mg Univers m oxalate 2-17 by mouth ity of (LEXAPRO) 00:00: daily. [place] 10 mg 00 Medical tablet Branch escitalopra Yes 10mg Take 10 mg Univers m oxalate 2-17 by mouth ity of (LEXAPRO) 00:00: daily. [place] 10 mg 00 Medical tablet Branch escitalopra Yes 10mg Take 10 mg Univers m oxalate 2-17 by mouth ity of (LEXAPRO) 00:00: daily. [place] 10 mg 00 Medical tablet Branch escitalopra Yes 10mg Take 10 mg Univers m oxalate 2-17 by mouth ity of (LEXAPRO) 00:00: daily. [place] 10 mg 00 Medical tablet Branch escitalopra Yes 10mg Take 10 mg Univers m oxalate 2-17 by mouth ity of (LEXAPRO) 00:00: daily. [place] 10 mg 00 Medical tablet Branch escitalopra Yes 10mg Take 10 mg Univers m oxalate 2-17 by mouth ity of (LEXAPRO) 00:00: daily. [place] 10 mg 00 Medical tablet Branch escitalopra Yes 10mg Take 10 mg Univers m oxalate 2-17 by mouth ity of (LEXAPRO) 00:00: daily. [place] 10 mg 00 Medical tablet Branch escitalopra Yes 10mg Take 10 mg Univers m oxalate 2-17 by mouth ity of (LEXAPRO) 00:00: daily. [place] 10 mg 00 Medical tablet Branch escitalopra Yes 10mg Take 10 mg Univers m oxalate 2-17 by mouth ity of (LEXAPRO) 00:00: daily. [place] 10 mg 00 Medical tablet Branch escitalopra Yes 10mg Take 10 mg Univers m oxalate 2-17 by mouth ity of (LEXAPRO) 00:00: daily. [place] 10 mg 00 Medical tablet Branch gabapentin Yes 600mg Take 600 Un jerson (NEURONTIN) 1-04 mg by ity of 600 mg 00:00: mouth 3 [place] tablet 00 (three) Medical times Branch daily. gabapentin 2016-0 Yes 600mg Take 600 Un jerson (NEURONTIN) 1-04 mg by ity of 600 mg 00:00: mouth 3 [place] tablet 00 (three) Medical times Branch daily. gabapentin 2016-0 Yes 600mg Take 600 Un jerson (NEURONTIN) 1-04 mg by ity of 600 mg 00:00: mouth 3 [place] tablet 00 (three) Medical times Branch daily. gabapentin 2016-0 Yes 600mg Take 600 Un jerson (NEURONTIN) 1-04 mg by ity of 600 mg 00:00: mouth 3 [place] tablet 00 (three) Medical times Branch daily. gabapentin 2016-0 Yes 600mg Take 600 Un jerson (NEURONTIN) 1-04 mg by ity of 600 mg 00:00: mouth 3 [place] tablet 00 (three) Medical times Branch daily. gabapentin 2016-0 Yes 600mg Take 600 Un jerson (NEURONTIN) 1-04 mg by ity of 600 mg 00:00: mouth 3 [place] tablet 00 (three) Medical times Branch daily. gabapentin 2016-0 Yes 600mg Take 600 Un jerson (NEURONTIN) 1-04 mg by ity of 600 mg 00:00: mouth 3 [place] tablet 00 (three) Medical times Branch daily. gabapentin 2016-0 Yes 600mg Take 600 Un jerson (NEURONTIN) 1-04 mg by ity of 600 mg 00:00: mouth 3 [place] tablet 00 (three) Medical times Branch daily. gabapentin 2016-0 Yes 600mg Take 600 Un jerson (NEURONTIN) 1-04 mg by ity of 600 mg 00:00: mouth 3 [place] tablet 00 (three) Medical times Branch daily. gabapentin 2016-0 Yes 600mg Take 600 Un jerson (NEURONTIN) 1-04 mg by ity of 600 mg 00:00: mouth 3 [place] tablet 00 (three) Medical times Branch daily. gabapentin 2016-0 Yes 600mg Take 600 Un jerson (NEURONTIN) 1-04 mg by ity of 600 mg 00:00: mouth 3 [place] tablet 00 (three) Medical times Branch daily. Vital Signs Vital Name Observation Time Observation Value Comments Source Systolic blood 2020-11-06 14:07:00 124 mm[Hg] Univer sity of pressure [facility] Diastolic blood 2020-11-06 14:07:00 81 mm[Hg] Unive rsity of pressure [facility] Heart rate 2020-11-06 14:07:00 90 /min [facility] Body height 2020-11-06 14:07:00 167.6 cm [facility] Body weight 2020-11-06 14:07:00 108.863 kg [facility] [place] [facility] BMI 2020-11-06 14:07:00 38.74 kg/m2 [facility] [place] [facility] Systolic blood 2020-06-02 17:36:00 136 mm[Hg] Univer sity of pressure [facility] Diastolic blood 2020-06-02 17:36:00 83 mm[Hg] Unive rsity of pressure [facility] Heart rate 2020-06-02 17:36:00 81 /min [facility] [place] [facility] Respiratory rate 2020-06-02 17:36:00 18 /min Univ ersity of [facility] Body height 2020-06-02 17:36:00 167.6 cm [facility] Body weight 2020-06-02 17:36:00 109.135 kg [facility] [place] [facility] BMI 2020-06-02 17:36:00 38.83 kg/m2 Universi [facility] of [facility] Oxygen saturation in 2020-06-02 17:36:00 93 /min [facility] Arterial blood by [facility] Pulse oximetry Branch Procedures Procedure Date / Time Performed Performing Clinician [facility] e REFERRAL- 2021-01-09 05:01:00 Doctor Unassigned, No [facility] [place] REQUEST/RESPONSE Name Medical Branch REFERRAL- 2020-12-12 05:01:00 Doctor Unassigned, No [facility] [place] REQUEST/RESPONSE Name Medical Branch REFERRAL- 2020-11-12 05:01:00 Doctor Unassigned, No [facility] [place] REQUEST/RESPONSE Name Medical Branch ASSIGNMENT OF BENEFITS 2020-06-02 17:30:05 Doctor Unassigned, No [facility] Name Medical Branch Encounters Start End Encounter Admission Attending Care Care Encounter Source Date/Time Date/Time Type Type Clinicians Facility Department ID 2021-01-09 2021-01-09 Orders Doctor CONNORS [id number] Univers 00:00:00 00:00:00 Only UnassignedALONSO [id number] ity of [place] [facility] [id number] Kenny as [phone] [address] 2020-12-12 2020-12-12 Orders Doctor DORY [id number] Univers 00:00:00 00:00:00 Only Unassigned, ALONSO [id number] ity [facility] [place] [facility] [id number] Kenny as [phone] [address] 2020-12-01 2020-12-01 Outpatient R JOÃO [facility] [id number] Univers 12:00:00 12:00:00 [facility] [id number] ity [facility] 2020-12-01 2020-12-01 [facility] [id number] Univers 12:00:00 12:00:00 [facility] ity [facility] 2020-11-12 2020-11-12 Orders Doctor DORY [id number] Univers 00:00:00 00:00:00 Only Unassigned, ALONSO [id number] it[facility] [place] [facility] [id number] Kenny as [phone] [address] 2020-11-06 2020-11-06 Office Patrice Willoughby [facility] [id number] Univers 09:06:43 09:21:43 Visit Tika Naik [facility] [id number] ity of Surgical [id number] Kenny as Specialti [phone] Nd dical 198 [facility] 2020-11-06 2020-11-06 Outpatient R JASON [facility] [id number] Univers 09:15:00 09:15:00 TIKA [id number] ity [facility] 2020-11-06 2020-11-06 Outpatient R JASON [facility] [id number] Univers 09:15:00 09:15:00 TIKA alexis [facility] 2020-10-15 2020-10-15 Outpatient R [facility] [id number] Univers 11:00:00 11:00:00 [id number] ity [facility] 2020-10-15 2020-10-15 Outpatient R KARYNA [facility] [id number] Univers 00:00:00 00:00:00 SENDIL ity [facility] 2020-08-07 2020-08-07 Patient Henrique [facility] [id number] Univers 00:00:00 00:00:00 Outreach Horacio [facility] [id number] i [place] [facility] [id number] [phone] Nd dical [address] [place] 2020-06-02 2020-06-02 Creative Specialist Светлана, [facility] Main [facility] 1.2.8 [id number] Univers 12:31:35 12:46:35 Visit Wellington Akers [id number] [id number] [phone] Nd dical nal 353 [facility] 2020-06-02 2020-06-02 [facility] [id number] Univers 11:31:59 12:01:59 Visit Wellington Estrella [id number] [id number] [phone] Nd dical nal 220 [facility] 2020-06-02 2020-06-02 Outpatient R JOÃO [facility] [id number] Univers 11:30:00 11:30:00 [place] [id number] ity [facility] 2020-06-02 2020-06-02 Outpatient R JOÃO [facility] [id number] Univers 11:30:00 11:30:00 [place] [facility] 2020-06-02 2020-06-02 Orders Doctor CONNORS 1.2.840.114 [id number] Univers 00:00:00 00:00:00 Only Unassigned, ALONSO [id number] [place] [facility] [id number] Kenny as [phone] [place] [address] Branch Results This patient has no known results.
--- NOTE | 2021-06-22 16:44 | ER ---
Nurse's Notes [facility] Name: Bethany Saeed Age: 51 yrs Sex: Female : 1970 Arrival Date: 06/22/2021 Time: 15:08 Bed 27 Private MD: Diagnosis: Epistaxis Presentation: 06/22 15:28 Chief complaint: Patient states: nose bleed started this am wanting eval. Coronavirus [facility] screen: Client denies travel out of the [place] in the last 14 days. Ebola Screen: Patient denies exposure to infectious person. Initial Sepsis Screen: Does the patient meet any 2 criteria? No. Patient's initial sepsis screen is negative. Does the patient have a suspected source of infection? No. Patient's initial sepsis screen is negative. Risk Assessment: Do you want to hurt yourself or someone else? Patient reports no desire to harm self or others. Onset of symptoms was June 22, 2021. 15:28 Method Of Arrival: Ambulatory [facility] 15:28 Acuity: ROE 4 [facility] Triage Assessment: 15:38 General: Appears in no apparent distress. Behavior is calm, cooperative. Pain: Denies [facility] pain. Respiratory: No deficits noted. Breath sounds are clear. Historical: - Allergies: 15:36 PENICILLINS; [facility] 15:36 Sulfa (Sulfonamide Antibiotics); [facility] - Home Meds: 15:36 amitriptyline 75 mg Oral tab 1 tab once daily [Active]; Lasix Oral [Active]; 6 levothyroxine 50 mcg tab [Active]; neurotin 600mg TID, [Active]; omeprazole 40 mg Oral cpDR [Active]; baclofen 10 mg Oral tab [Active]; triamterene-hydrochlorothiazid 37.5-25 mg Oral tab [Active]; - PMHx: 15:36 Anxiety; Bronchitis; Depression; Hypothyroidism; neuropathy; NIDDM,; psorasis; jh6 - Immunization history:: Client reports receiving the 2nd dose of the Covid vaccine. - Social history:: Smoking status: Patient reports the use of cigarette tobacco products. - Family history:: not pertinent. - Hospitalizations: : No recent hospitalization is reported. Screenin:48 Abuse screen: Denies threats or abuse. Denies injuries from another. Nutritional ab2 screening: No deficits noted. Tuberculosis screening: No symptoms or risk factors identified. Fall Risk None identified. Assessment: 16:45 General: Appears in no apparent distress. comfortable, Behavior is calm, cooperative, ab2 appropriate for age. Cardiovascular: No deficits noted. Denies chest pain, shortness of breath, Heart tones S1 S2 present Patient's skin is warm and dry. Chest pain is denied. Respiratory: No deficits noted. Airway is patent Breath sounds are clear bilaterally. Denies cough, shortness of breath. GI: No deficits noted. No signs and/or symptoms were reported involving the gastrointestinal system. Abdomen is obese. : No deficits noted. No signs and/or symptoms were reported regarding the genitourinary system. EENT: Reports nasal discharge that is bloody. Derm: No deficits noted. No signs and/or symptoms reported regarding the dermatologic system. Musculoskeletal: No deficits noted. No signs and/or symptoms reported regarding the musculoskeletal system. Vital Signs: 15:28 BP 142 / 96; Pulse 90; Resp 18; Temp 98.6(O); Pulse Ox 98% ; Weight 104.33 kg; Height 5 [facility] ft. 6 in. (167.64 cm); Pain 0/10; 16:45 BP 136 / 79; Pulse 81; Resp 16; Pulse Ox 97% on R/A; ab2 15:28 Body Mass Index 37.12 (104.33 kg, 167.64 cm) [facility] ED Course: 15:08 Patient arrived in ED. as 15:35 Triage completed. [facility] 16:32 Marlon Adame MD is Attending Physician. rn 16:35 Brent Mustafa is Primary Nurse. ab2 16:48 Arm band placed on right wrist. ab2 16:48 No provider procedures requiring assistance completed. Patient did not have IV access ab2 during this emergency room visit. Administered Medications: No medications were administered Outcome: 16:44 Discharge ordered by . rn 16:48 Discharged to home ambulatory. ab2 16:48 Condition: good 16:48 Discharge instructions given to patient, Instructed on discharge instructions, follow up and referral plans. Demonstrated understanding of instructions, follow-up care. 16:49 Patient left the ED. ab2 Signatures: Destiney Montoya Roman, MD MD rn Hastedt, Jennifer, RN RN [facility] Brent Mustafa ab2
--- NOTE | 2021-06-22 16:45 | EDPHYS ---
Physician Documentation [facility] Name: Bethany Saeed Age: 51 yrs Sex: Female : 1970 Arrival Date: 06/22/2021 Time: 15:08 Bed 27 Private MD: ED Physician Marlon Adame HPI: 06/22 16:38 This 51 yrs old Female presents to ER via Ambulatory with complaints of Congestion, rn Nose Bleed. 16:38 The patient presents with a nose bleed, that is apparently anterior, occurred while rn picking nose, that is small amount stopped /dried blood noted. causative factors include: previous HX of nosebleeds. Onset: The symptoms/episode began/occurred this morning. Modifying factors: The symptoms are alleviated by pressure, the symptoms are aggravated by nothing. Associated signs and symptoms: Loss of consciousness: the patient experienced no loss of consciousness, Pertinent positives: bleeding, Pertinent negatives: fever, shortness of breath, sore throat, vertigo. Severity of symptoms: At their worst the symptoms were mild in the emergency department the symptoms have resolved. The patient has experienced similar episodes in the past. The patient has not recently seen a physician. Historical: - Allergies: 15:36 PENICILLINS; jh6 15:36 Sulfa (Sulfonamide Antibiotics); jh6 - Home Meds: 15:36 amitriptyline 75 mg Oral tab 1 tab once daily [Active]; Lasix Oral [Active]; jh6 levothyroxine 50 mcg tab [Active]; neurotin 600mg TID, [Active]; omeprazole 40 mg Oral cpDR [Active]; baclofen 10 mg Oral tab [Active]; triamterene-hydrochlorothiazid 37.5-25 mg Oral tab [Active]; - PMHx: 15:36 Anxiety; Bronchitis; Depression; Hypothyroidism; neuropathy; NIDDM,; psorasis; jh6 - Immunization history:: Client reports receiving the 2nd dose of the Covid vaccine. - Social history:: Smoking status: Patient reports the use of cigarette tobacco products. - Family history:: not pertinent. - Hospitalizations: : No recent hospitalization is reported. ROS: 16:38 Constitutional: Negative for fever, chills, and weight loss, Eyes: Negative for injury, rn pain, redness, and discharge, ENT: Positive for nosebleed and congestion Cardiovascular: Negative for chest pain, palpitations, and edema, Respiratory: Negative for shortness of breath, cough, wheezing, and pleuritic chest pain, Neuro: Negative for headache, weakness, numbness, tingling, and seizure. Exam: 16:38 Constitutional: This is a well developed, well nourished patient who is awake, alert, rn and in no acute distress. Head/Face: Normocephalic, atraumatic. Eyes: Periorbital areas with no swelling, redness, or edema. ENT: Dried blood left nare. No active bleeding. Cardiovascular: Regular rate and rhythm. No pulse deficits. Respiratory: No increased work of breathing, no retractions or nasal flaring. Vital Signs: 15:28 BP 142 / 96; Pulse 90; Resp 18; Temp 98.6(O); Pulse Ox 98% ; Weight 104.33 kg; Height 5 jh6 ft. 6 in. (167.64 cm); Pain 0/10; 16:45 BP 136 / 79; Pulse 81; Resp 16; Pulse Ox 97% on R/A; ab2 15:28 Body Mass Index 37.12 (104.33 kg, 167.64 cm) 6 MDM: 16:32 Patient medically screened. rn 16:38 Differential diagnosis: spontaneous epistaxis. Data reviewed: vital signs, nurses rn notes, and as a result, I will discharge patient. Counseling: I had a detailed discussion with the patient and/or guardian regarding: the historical points, exam findings, and any diagnostic results supporting the discharge/admit diagnosis, the need for outpatient follow up, to return to the emergency department if symptoms worsen or persist or if there are any questions or concerns that arise at home. Response to treatment: the patient's symptoms have resolved after treatment, the patient's condition has returned to base line, and as a result, I will discharge patient. Special discussion: I discussed with the patient/guardian in detail that at this point there is no indication for admission to the hospital. It is understood, however, that if the symptoms persist or worsen the patient needs to return immediately for re-evaluation. ED course: Nosebleed stopped on its own without intervention. Patient states has bad seasonal allergies, already takes Zyrtec uses humidifier and Nasonex. States today nosebleed is after poking nose. No intervention needed right now and will discharge home with return precautions.. Administered Medications: No medications were administered Disposition Summary: 06/22/21 16:44 Discharge Ordered Location: Home rn Problem: new rn Symptoms: have improved rn Condition: Stable rn Diagnosis - Epistaxis rn Followup: rn - With: Private Physician - When: As needed - Reason: Recheck today's complaints, Re-evaluation by your physician Discharge Instructions: - Discharge Summary Sheet rn - Nosebleed, Adult rn Forms: - Medication Reconciliation Form rn - Thank You Letter rn - Antibiotic distance learning coordinator - Prescription Opioid Use rn Signatures: Marlon Adame MD MD rn Hastedt, Jennifer, RN RN jh6
[2021-06-22 16:59] VITALS: TEMP 98.6
[2021-06-22 17:01] VITALS: BP 136/79; O2SAT 97
== END 2021-06-22 16:49 | disposition home or self-care (01) ==
LOC: ER 15:04
DX: R04.0 Epistaxis (principal); E11.40 Type 2 diabetes mellitus with diabetic neuropathy, unspecified; E03.9 Hypothyroidism, unspecified; L40.9 Psoriasis, unspecified; F41.9 Anxiety disorder, unspecified; F32.A Depression, unspecified; F17.210 Nicotine dependence, cigarettes, uncomplicated; Z88.0 Allergy status to penicillin; Z88.2 Allergy status to sulfonamides
CPT/HCPCS: 99281

== ENCOUNTER 2021-07-15 10:40 | Emergency (ER) | payer OTHER ==
--- OUTSIDE RECORDS SUMMARY | 2021-07-15 10:43 | XMS REPORT | Continuity of Care Document ---
:1970 Author Organization [facility] t Address [address] [place] [address] Dr. Moreno. [address] [place] [address] Care Team Providers Name Role Phone Gila [...] nivers pain pain 2-25 ity of 00:00: [place] 00 Medical Branch Low back Low back Disease Active Unive rs pain pain 2-25 ity of 00:00: [place] 00 Medical Branch Lumbago Lumbago Disease Active Univers 3-13 ity of 00:00: [place] [facility] Thoracic Thoracic Disease Active Overview: Un jerson or or 3-13 Formattin ity of lumbosacra lumbosacra 00:00: g of this [place] l neuritis l neuritis 00 note Me [...] of (generaliz (generaliz 00:00: g of this [place] ed) ed) 00 note Medical might be [...] of tobacco Cigarette Smoker University of use [facility] Exposure to Not sure University of SARS-CoV-2 (event) [facility] Cigarettes smoked 2020-11-06 2020-11-06 Univers ity of current (pack per 00:00:00 00:00:00 [facility] ) - Reported Branch Tobacco use and 2020-11-06 2020-11-06 Never used Universit y of exposure 00:00:00 00:00:00 [facility] Alcohol intake 2020-11-06 2020-11-06 Current University of 00:00:00 00:00:00 non-drinker of [facility] alcohol Branch (finding) Sex Ass[birth year] Universit y of 00:00:00 00:00:00 [facility] Smoking Status Start Date Stop Date Source Current every day smoker 2020-11-06 00:00:00 Uni versity of [facility] Medications Ordered Filled Start Stop Current Ordering Indication Dosage Frequency Signature Comments Components Source Medication Medication Date Date Medication? Clinician (SIG) Name Name OMEPRAZOLE Yes 40mg Take 40 mg U nivers ORAL 1-11 by mouth ity of 17:42: daily. [address] OMEPRAZOLE Yes 40mg Take 40 mg U nivers ORAL 1-11 by mouth ity of 17:42: daily. [address] OMEPRAZOLE Yes 40mg Take 40 mg U nivers ORAL 1-11 by mouth ity of 17:42: daily. [address] OMEPRAZOLE Yes 40mg Take 40 mg U nivers ORAL 1-11 by mouth ity of 17:42: daily. [address] OMEPRAZOLE Yes 40mg Take 40 mg U nivers ORAL 1-11 by mouth ity of 17:42: daily. [address] OMEPRAZOLE Yes 40mg Take 40 mg U nivers ORAL 1-11 by mouth ity of 17:42: daily. [address] OMEPRAZOLE Yes 40mg Take 40 mg U nivers ORAL 1-11 by mouth ity of 17:42: daily. [address] OMEPRAZOLE Yes 40mg Take 40 mg U nivers ORAL 1-11 by mouth ity of 17:42: daily. [address] OMEPRAZOLE Yes 40mg Take 40 mg U nivers ORAL 1-11 by mouth ity of 17:42: daily. [address] OMEPRAZOLE Yes 40mg Take 40 mg U nivers ORAL 1-11 by mouth ity of 17:42: daily. [place] 09 [facility] triamterene Yes 1{tbl} Take 1 Un [...] mouth ity of mg tablet 17:40: daily. [address] fluticasone Yes 2{spray Use 2 Un [...] Univers SULFATE 1-11 ity of INHALE 17:40: [address] BACLOFEN 10 0 Yes 1 tab TID U nivers MG ORAL TAB 1-11 ity of 17:40: [address] HYDROCODONE Yes 1-2 tabs Un jerson -ACETAMINOP 1-11 PRN pain ity of HEN 7.5-500 17:40: [place] MG ORAL TAB [address] [place] [address] triamterene 0 Yes 1{tbl} Take 1 Un [...] mouth ity of mg tablet 17:40: daily. [address] fluticasone Yes 2{spray Use 2 Un jerson (FLONASE 1-11 } Sprays in ity of SENSIMIST) 17:40: each [place] 27.5 48 nostril Medical mcg/actuati daily. Branch on nasal spray vitamin C Yes 500mg Take 500 Uni vers with jihan 1-11 mg by ity of hips 17:40: mouth [place] (VITAMIN C) 48 daily. Medica l 1,000 mg Branch tablet ALBUTEROL Yes PRN Univers SULFATE 1-11 ity of INHALE 17:40: [address] BACLOFEN 10 Yes 1 tab TID U nivers MG ORAL TAB 1-11 ity of 17:40: [address] HYDROCODONE Yes 1-2 tabs Un jerson -ACETAMINOP 1-11 PRN pain ity of HEN 7.5-500 17:40: [place] MG ORAL TAB [address] [place] [address] triamterene Yes 1{tbl} Take 1 Un jerson -hydrochlor 1-11 tablet by ity of othiazid 17:40: mouth [place] (MAXZIDE-25 48 daily. Medica l ) 37.5-25 Branch mg tablet tetrahydroz Yes 1[drp] Place 1 U nivers oline 1-11 Drop in ity of HCl/zinc 17:40: each eye [place] sulf (EYE 48 daily. In Medic al DROPS both eyes [place] ALLERGY RELIEF OPHTHALMIC) cetirizine Yes 10mg Take 10 mg U nivers (ZYRTEC) 10 1-11 by mouth ity of mg tablet 17:40: daily. [address] fluticasone Yes 2{spray Use 2 Un jerson (FLONASE 1-11 } Sprays in ity of SENSIMIST) 17:40: each [place] 27.5 48 nostril Medical mcg/actuati daily. Branch on nasal spray vitamin C Yes 500mg Take 500 Uni vers with jihan 1-11 mg by ity of hips 17:40: mouth [place] (VITAMIN C) 48 daily. Medica l 1,000 mg Branch tablet ALBUTEROL Yes PRN Univers SULFATE 1-11 ity of INHALE 17:40: [address] BACLOFEN 10 Yes 1 tab TID U nivers MG ORAL TAB 1-11 ity of 17:40: [address] HYDROCODONE Yes 1-2 tabs Un jerson -ACETAMINOP 1-11 PRN pain ity of HEN 7.5-500 17:40: [place] MG ORAL TAB 48 Medical Branch triamterene Yes 1{tbl} Take 1 Un jerson -hydrochlor 1-11 tablet by ity of othiazid 17:40: mouth [place] (MAXZIDE-25 48 daily. Medica l ) 37.5-25 Branch mg tablet tetrahydroz Yes 1[drp] Place 1 U nivers oline 1-11 Drop in ity of HCl/zinc 17:40: each eye [place] sulf (EYE 48 daily. In Medic al DROPS both eyes Branch ALLERGY RELIEF OPHTHALMIC) cetirizine Yes 10mg Take 10 mg U nivers (ZYRTEC) 10 1-11 by mouth ity of mg tablet 17:40: daily. [address] fluticasone Yes 2{spray Use 2 Un jerson (FLONASE 1-11 } Sprays in ity of SENSIMIST) 17:40: each [place] 27.5 48 nostril Medical mcg/actuati daily. Branch on nasal spray vitamin C Yes 500mg Take 500 Uni vers with jihan 1-11 mg by ity of hips 17:40: mouth [place] (VITAMIN C) 48 daily. Medica l 1,000 mg Branch tablet ALBUTEROL Yes PRN Univers SULFATE 1-11 ity of INHALE 17:40: [address] BACLOFEN 10 Yes 1 tab TID U nivers MG ORAL TAB 1-11 ity of 17:40: [address] HYDROCODONE Yes 1-2 tabs Un jerson [...] mouth ity of mg tablet 17:40: daily. [address] fluticasone Yes 2{spray Use 2 Un [...] Univers SULFATE 1-11 ity of INHALE 17:40: [address] BACLOFEN 10 Yes 1 tab TID U nivers MG ORAL TAB 1-11 ity of 17:40: [address] HYDROCODONE Yes 1-2 tabs Un jerson [...] mouth ity of mg tablet 17:40: daily. [address] fluticasone Yes 2{spray Use 2 Un [...] Univers SULFATE 1-11 ity of INHALE 17:40: [address] BACLOFEN 10 Yes 1 tab TID U nivers MG ORAL TAB 1-11 ity of 17:40: [address] HYDROCODONE Yes 1-2 tabs Un jerson -ACETAMINOP 1-11 PRN pain ity of HEN 7.5-500 17:40: [place] MG ORAL TAB [address] [place] [address] triamterene Yes 1{tbl} Take 1 Un jerson -hydrochlor 1-11 tablet by ity of othiazid 17:40: mouth [place] (MAXZIDE-25 48 daily. Medica l ) 37.5-25 Branch mg tablet tetrahydroz Yes 1[drp] Place 1 U nivers oline 1-11 Drop in ity of HCl/zinc 17:40: each eye [place] sulf (EYE 48 daily. In Medic al DROPS both eyes Branch ALLERGY RELIEF OPHTHALMIC) cetirizine Yes 10mg Take 10 mg U nivers (ZYRTEC) 10 1-11 by mouth ity of mg tablet 17:40: daily. [address] fluticasone Yes 2{spray Use 2 Un [...] Univers SULFATE 1-11 ity of INHALE 17:40: [address] Branch BACLOFEN 10 Yes 1 tab TID U nivers MG ORAL TAB 1-11 ity of 17:40: [address] Branch HYDROCODONE Yes 1-2 tabs Un [...] mouth ity of mg tablet 17:40: daily. [address] fluticasone Yes 2{spray Use 2 Un [...] Univers SULFATE 1-11 ity of INHALE 17:40: [address] BACLOFEN 10 Yes 1 tab TID U nivers MG ORAL TAB 1-11 ity of 17:40: [address] HYDROCODONE Yes 1-2 tabs Un jerson [...] mouth ity of mg tablet 17:40: daily. [address] fluticasone Yes 2{spray Use 2 Un jerson (FLONASE 1-11 } Sprays in ity of SENSIMIST) 17:40: each [place] 27.5 48 nostril Medical mcg/actuati daily. Branch on nasal spray vitamin C Yes 500mg Take 500 Uni vers with jihan 1-11 mg by ity of hips 17:40: mouth [place] (VITAMIN C) 48 daily. Medica l 1,000 mg Branch tablet ALBUTEROL Yes PRN Univers SULFATE 1-11 ity of INHALE 17:40: [address] BACLOFEN 10 Yes 1 tab TID U nivers MG ORAL TAB 1-11 ity of 17:40: [address] HYDROCODONE Yes 1-2 tabs Un jerson -ACETAMINOP 1-11 PRN pain ity of HEN 7.5-500 17:40: [place] MG ORAL TAB [address] [place] [address] Branch triamterene Yes 1{tbl} Take 1 Un [...] Univers SULFATE 1-11 ity of INHALE 17:40: [place] 48 [facility] [place] [facility] BACLOFEN 10 Yes 1 tab TID U nivers MG ORAL TAB 1-11 ity of 17:40: [address] HYDROCODONE Yes 1-2 tabs Un jerson -ACETAMINOP 1-11 PRN pain ity of HEN 7.5-500 17:40: [place] MG ORAL TAB 48 [facility] [place] [facility] ALEVE ORAL 2020- No 2 tabs PRN Univers 1-11 -11 JASMINE ity of 17:40: 00:00 [place] 48 :00 Medical [place] ALEVE ORAL 2020- No 2 tabs PRN Univers 1-11 -11 JASMINE ity of 17:40: 00:00 [place] 48 :00 [facility] [place] [facility] ALBUTEROL Yes PRN Univers SULFATE 8-15 ity of INHALE 20:09: [address] BACLOFEN 10 Yes 1 tab TID U nivers MG ORAL TAB 8-15 ity of 20:09: [address] HYDROCODONE Yes 1-2 tabs Un jerson -ACETAMINOP 8-15 PRN pain ity of HEN 7.5-500 20:09: [place] MG ORAL TAB 36 Medical [place] ALEVE ORAL Yes 2 tabs PRN U nivers 8-15 JASMINE ity of 20:09: [address] triamterene Yes 1{tbl} Take 1 Un [...] 14:07:00 124 mm[Hg] Univer sity of pressure [facility] Diastolic blood 2020-11-06 14:07:00 81 mm[Hg] Unive rsity of pressure [facility] Heart rate 2020-11-06 14:07:00 90 /min Universi ty of [place] [facility] Body height 2020-11-06 14:07:00 167.6 cm [facility] ty [facility] [place] [facility] Body weight 2020-11-06 14:07:00 108.863 kg [facility]i ty [facility] [place] [facility] BMI 2020-11-06 14:07:00 38.74 kg/m2 [facility] ty [facility] [place] [facility] Systolic blood 2020-06-02 17:36:00 136 mm[Hg] Univer sity of pressure [facility] Branch Diastolic blood 2020-06-02 17:36:00 83 mm[Hg] Unive rsity of pressure [facility] Branch Heart rate 2020-06-02 17:36:00 81 /min Universi ty [facility] [place] [facility] Respiratory rate 2020-06-02 17:36:00 18 /min Univ ersity of [facility] Branch Body height 2020-06-02 17:36:00 167.6 cm Universi ty [facility] [place] [facility] Body weight 2020-06-02 17:36:00 109.135 kg [facility]i ty [facility] [place] [facility] BMI 2020-06-02 17:36:00 38.83 kg/m2 Universi ty of [facility] Branch Oxygen saturation in 2020-06-02 17:36:00 93 /[facility] blood by [facility] Pulse oximetry Branch Procedures Procedure Date / Time Performed Performing Clinician [facility] e REFERRAL- 2021-01-09 05:01:00 Doctor Unassigned, No Univer sity of [place] REQUEST/RESPONSE Name Medical Branch REFERRAL- 2020-12-12 05:01:00 Doctor Unassigned, No Univer sity of [place] REQUEST/RESPONSE Name Medical Branch REFERRAL- 2020-11-12 05:01:00 Doctor Unassigned, No Univer sity of [place] REQUEST/RESPONSE Name Medical Branch ASSIGNMENT OF BENEFITS 2020-06-02 17:30:05 Doctor Unassigned, No University [facility] Name Medical Branch Encounters Start End Encounter Admission Attending Care Care Encounter Source Date/Time Date/Time Type Type Clinicians Facility Department ID 2021-01-09 2021-01-09 Orders Doctor CONNORS [id number] [id number] Univers 00:00:00 00:00:00 Only UnassignedALONSO [id number] ity of [facility] [id number] Kenny as [phone] [address] 2020-12-12 2020-12-12 Orders Doctor DORY [id number] Univers 00:00:00 00:00:00 Only Unassigned, ALONSO [id number] ity of [facility] [id number] Kenny as [phone] [address] 2020-12-01 2020-12-01 Outpatient R JOÃO [facility] [id number] Univers 12:00:00 12:00:00 [facility] [id number] ity [facility] 2020-12-01 2020-12-01 [id number] Univers 12:00:00 12:00:00 [facility] ity [facility] 2020-11-12 2020-11-12 Orders Doctor DORY [id number] Univers 00:00:00 00:00:00 Only Unassigned, ALONSO [id number] ity of [facility] [id number] Kenny as [phone] [address] 2020-11-06 2020-11-06 Office Patrice Willoughby [facility] [id number] Univers 09:06:43 09:21:43 Visit [facility] [id number] ity of Surgical [id number] Kenny as Specialti [phone] Az dical 198 [facility] 2020-11-06 2020-11-06 Outpatient R JASON [facility] [id number] Univers 09:15:00 09:15:00 TIKA [id number] ity [facility] 2020-11-06 2020-11-06 Outpatient R JASON [facility] [id number] Univers 09:15:00 09:15:00 TIKA alexis [facility] 2020-10-15 2020-10-15 Outpatient R [facility] [id number] Univers 11:00:00 11:00:00 [id number] ity [facility] 2020-10-15 2020-10-15 Outpatient R KARYNA [facility] [id number] Univers 00:00:00 00:00:00 SENDIL ity [facility] 2020-08-07 2020-08-07 Patient Henrique [facility] [id number] [id number] Univers 00:00:00 00:00:00 Outreach [facility] [id number] i ty of [facility] [id number] [phone] [place] dical [address] [place] 2020-06-02 2020-06-02 [employer] Светлана, [facility] Lab Main [facility] 1.2.8 [id number] Univers 12:31:35 12:46:35 Visit [place] Akers [id number] ity of [id number] [phone] Az dical nal 353 [facility] 2020-06-02 2020-06-02 [facility] 1.2.840.114 [id number] Univers 11:31:59 12:01:59 Visit [place] Estrella [id number] i ty of [id number] [phone] Az dical nal 220 [facility] 2020-06-02 2020-06-02 Outpatient R JOÃO [facility] [id number] Univers 11:30:00 11:30:00 [place] [id number] ity [facility] 2020-06-02 2020-06-02 Outpatient R JOÃO [facility] [id number] Univers 11:30:00 11:30:00 [place] [facility] 2020-06-02 2020-06-02 Orders Doctor CONNORS [id number] [id number] Univers 00:00:00 00:00:00 Only Unassigned, ALONSO [id number] ity of [place] [facility] [id number] Kenny as [phone] [place] [address] Branch Results This patient has no known results.
--- NOTE | 2021-07-15 11:46 | RAD REPORT ---
EXAM DESCRIPTION: RAD - Chest Pa And Lat (2 Views) - 07/15/2021 11:34 am CLINICAL HISTORY: COUGH, smoking history, history of COPD COMPARISON: Single-view chest October 12, 2019 TECHNIQUE: Frontal and lateral views of the chest were obtained. FINDINGS: The lungs are underinflated. No peripheral mass or consolidation. Interstitial pattern is similar to comparison. Heart size is normal and central vasculature is within normal limits. No ple ural effusion or pneumothorax seen. No acute bony finding noted. No aortic abnormality. IMPRESSION: Chronic interstitial lung changes are present similar to 01/12/2020 No acute findings seen.
--- NOTE | 2021-07-15 12:44 | EDPHYS ---
Physician Documentation [facility] Name: Bethany Saeed Age: 51 yrs Sex: Female : 1970 Arrival Date: 07/15/2021 Time: 10:41 Bed Treatment Private MD: Jorje Carrizales E ED Physician Volodymyr Akhtar HPI: 07/15 12:41 This 51 yrs old Female presents to ER via Ambulatory with complaints of Cough, kb Abdominal Pain. 12:41 The patient or guardian reports cough, that is intermittent, described as mild. Onset: kb The symptoms/episode began/occurred 3 day(s) ago. Severity of symptoms: At their worst the symptoms were mild, in the emergency department the symptoms are unchanged. Modifying factors: The symptoms are alleviated by nothing, the symptoms are aggravated by nothing. Associated signs and symptoms: The patient has no apparent associated signs or symptoms. The patient has experienced similar episodes in the past, a few times. The patient has not recently seen a physician. Pt states her allergies have been flaring up causing nasal congestion and cough. States the congestion has been there for a while, but the cough started 3 days ago. Reports cough goes away after she takes her medication, but comes back the next morning. "I have anxiety and I think its starting to get to me.". 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 LMP N/A - Hysterectomy ap3 Historical: - Allergies: 11:11 PENICILLINS; ap3 11:11 Sulfa (Sulfonamide Antibiotics); ap3 - Home Meds: 11:11 loteprednol etabonate ophthalmic (eye) [Active]; amitriptyline 75 mg Oral tab 1 tab ap3 once daily [Active]; baclofen 10 mg Oral tab [Active]; Lasix Oral [Active]; levothyroxine 50 mcg tab [Active]; neurotin 600mg TID, [Active]; omeprazole 40 mg Oral cpDR [Active]; triamterene-hydrochlorothiazid 37.5-25 mg Oral tab [Active]; erythromycin ophthalmic (eye) Opht [Active]; - PMHx: 11:11 Anxiety; Bronchitis; Depression; Hypothyroidism; neuropathy; NIDDM,; psorasis; ap3 - Immunization history:: Client reports receiving the 2nd dose of the Covid vaccine, Flu vaccine is not up to date. - Social history:: Smoking status: Patient reports the use of cigarette tobacco products, smokes one pack cigarettes per day. ROS: 12:40 Constitutional: Negative for fever, chills, and weight loss. kb 12:40 Respiratory: Positive for cough. 12:40 All other systems are negative. 12:40 ENT: Positive for sinus congestion. kb Exam: 12:40 Constitutional: This is a well developed, well nourished patient who is awake, alert, kb and in no acute distress. Head/Face: Normocephalic, atraumatic. ENT: Moist Mucous membranes Cardiovascular: Regular rate and rhythm with a normal S1 and S2. No gallops, murmurs, or rubs. No pulse deficits. Respiratory: Respirations even and unlabored. No increased work of breathing. Talking in full sentences Skin: Warm, dry with normal turgor. Normal color. MS/ Extremity: Pulses equal, no cyanosis. Neurovascular intact. Full, normal range of motion. Neuro: Awake and alert, GCS 15, oriented to person, place, time, and situation. Moves all extremities. Normal gait. Psych: Awake, alert, with orientation to person, place and time. Behavior, mood, and affect are within normal limits. Vital Signs: 11:09 BP 127 / 81; Pulse 90; Resp 17; Temp 97.8(TE); Pulse Ox 100% ; Weight 104.33 kg; Height ap3 5 ft. 6 in. (167.64 cm); 12:30 BP 122 / 89; Pulse 96; Resp 18; Pulse Ox 100% ; ld1 11:09 Body Mass Index 37.12 (104.33 kg, 167.64 cm) ap3 MDM: 12:26 Patient medically screened. kb 12:41 Data reviewed: vital signs, nurses notes. Data interpreted: Pulse oximetry: on room air kb is 100 %. Interpretation: normal. Counseling: I had a detailed discussion with the patient and/or guardian regarding: the historical points, exam findings, and any diagnostic results supporting the discharge/admit diagnosis, radiology results, the need for outpatient follow up, a family practitioner, to return to the emergency department if symptoms worsen or persist or if there are any questions or concerns that arise at home. 07/15 11:21 Order name: Chest Pa And Lat (2 Views) XRAY; Complete Time: 11:48 kb Administered Medications: 12:48 Drug: SOLU-Medrol (methylPREDNISolone sodium succinate) 125 mg Route: IM; Site: left ld1 deltoid; Disposition Summary: 07/15/21 12:43 Discharge Ordered Location: Home kb Condition: Stable kb Diagnosis - Cough kb Followup: kb - With: Emergency Department - When: As needed - Reason: Worsening of condition Followup: kb - With: Private Physician - When: 2 - 3 days - Reason: Recheck today's complaints, Continuance of care, Re-evaluation by your physician Discharge Instructions: - Discharge Summary Sheet kb - Cough, Adult, [id number] kb Forms: - Medication Reconciliation Form kb - Thank You Letter kb - Antibiotic Education kb - Prescription Opioid Use kb Signatures: Dispatcher [employer] EDAnnie Flores FNP-C FNP-Ckb Prokisch, Amanda, RN RN ap3 Shaye Hunt RN RN ld1
--- NOTE | 2021-07-15 12:44 | ER ---
Nurse's Notes [facility] Name: Bethany Saeed Age: 51 yrs Sex: Female : 1970 Arrival Date: 07/15/2021 Time: 10:41 Bed Treatment Private MD: Jorje Carrizales E Diagnosis: Cough Presentation: 07/15 11:09 Chief complaint: Patient states: she has a cough and she isn't sure if it is from her ap3 indigestion or from possible mold in her home. Patient states she wants to be evaluated because she is worried it could be from the mold. Patient denies any pain or shortness of breath at this time. Coronavirus screen: cough unrelated to allergies. Ebola Screen: No symptoms or risks identified at this time. Initial Sepsis Screen: Does the patient meet any 2 criteria? No. Patient's initial sepsis screen is negative. Does the patient have a suspected source of infection? No. Patient's initial sepsis screen is negative. Risk Assessment: Do you want to hurt yourself or someone else? Patient reports no desire to harm self or others. Onset of symptoms was July 08, 2021. 11:09 Method Of Arrival: Ambulatory ap3 11:09 Acuity: ROE 4 ap3 Triage Assessment: 11:13 General: Appears in no apparent distress. comfortable, Behavior is calm, cooperative, ap3 appropriate for age. Pain: Denies pain. Neuro: Level of Consciousness is awake, alert, obeys commands, Oriented to person, place, time, situation, Appropriate for age. Cardiovascular: Patient's skin is warm and dry. Respiratory: Airway is patent Respiratory effort is even, unlabored. Respiratory: Reports cough that is dry. GI: Reports indigestion, Patient currently denies abdominal pain. 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: 11:14 LMP N/A - Hysterectomy ap3 Historical: - Allergies: 11:11 PENICILLINS; ap3 11:11 Sulfa (Sulfonamide Antibiotics); ap3 - Home Meds: 11:11 loteprednol etabonate ophthalmic (eye) [Active]; amitriptyline 75 mg Oral tab 1 tab ap3 once daily [Active]; baclofen 10 mg Oral tab [Active]; Lasix Oral [Active]; levothyroxine 50 mcg tab [Active]; neurotin 600mg TID, [Active]; omeprazole 40 mg Oral cpDR [Active]; triamterene-hydrochlorothiazid 37.5-25 mg Oral tab [Active]; erythromycin ophthalmic (eye) Opht [Active]; - PMHx: 11:11 Anxiety; Bronchitis; Depression; Hypothyroidism; neuropathy; NIDDM,; psorasis; ap3 - Immunization history:: Client reports receiving the 2nd dose of the Covid vaccine, Flu vaccine is not up to date. - Social history:: Smoking status: Patient reports the use of cigarette tobacco products, smokes one pack cigarettes per day. Screenin:14 Abuse screen: Denies threats or abuse. Nutritional screening: No deficits noted. ap3 Tuberculosis screening: No symptoms or risk factors identified. 12:30 Fall Risk None identified. ld1 Assessment: 12:30 General: Appears in no apparent distress. comfortable, Behavior is calm, cooperative, ld1 appropriate for age. Pain: Denies pain. Neuro: Level of Consciousness is awake, alert, obeys commands, Oriented to person, place, time, situation. Cardiovascular: Capillary refill < 3 seconds Patient's skin is warm and dry. Respiratory: Airway is patent Respiratory effort is even, unlabored, Respiratory pattern is regular, symmetrical. Vital Signs: 11:09 BP 127 / 81; Pulse 90; Resp 17; Temp 97.8(TE); Pulse Ox 100% ; Weight 104.33 kg; Height ap3 5 ft. 6 in. (167.64 cm); 12:30 BP 122 / 89; Pulse 96; Resp 18; Pulse Ox 100% ; ld1 11:09 Body Mass Index 37.12 (104.33 kg, 167.64 cm) ap3 ED Course: 10:41 Patient arrived in ED. as 10:41 Jorje Carrizales MD is Private Physician. as 10:53 [facility] Rod[facility]C [facility] kb 10:53 Volodymyr Akhtar MD is Attending Physician. kb 11:11 Triage completed. ap3 11:14 Arm band placed on left wrist. ap3 11:33 Chest Pa And Lat (2 Views) XRAY In Process Unspecified. EDMS 12:28 Shaye Hunt, RN is Primary Nurse. ld1 12:30 Patient has correct armband on for positive identification. Bed in low position. Call ld1 light in reach. Side rails up X2. Pulse ox on. NIBP on. Door closed. Noise minimized. Warm blanket given. 12:30 No provider procedures requiring assistance completed. Patient did not have IV access ld1 during this emergency room visit. Administered Medications: 12:48 Drug: SOLU-Medrol (methylPREDNISolone sodium succinate) 125 mg Route: IM; Site: left ld1 deltoid; Outcome: 12:30 Discharged to home ambulatory. ld1 12:30 Condition: stable 12:30 Discharge instructions given to patient, Instructed on discharge instructions, follow up and referral plans. Demonstrated understanding of instructions, follow-up care. 12:43 Discharge ordered by . kb 12:49 Patient left the ED. ld1 Signatures: Dispatcher [employer] EDAnnie Flores, DANUTA COLEMAN-Destiney Pritchard Amanda, RN RN ap3 Shaye Hunt RN RN ld1
[2021-07-15] MEDS ORDERED: METHYLPREDNISOLONE 125 MG INJ ONE (12:45)
[2021-07-15 14:07] VITALS: TEMP 97.8; O2SAT 100
[2021-07-15 14:08] VITALS: BP 122/89
== END 2021-07-15 12:49 | disposition home or self-care (01) ==
LOC: ER 10:40
DX: R05.9 Cough, unspecified (principal); E11.9 Type 2 diabetes mellitus without complications; F41.9 Anxiety disorder, unspecified; E03.9 Hypothyroidism, unspecified; F17.210 Nicotine dependence, cigarettes, uncomplicated; Z88.0 Allergy status to penicillin; Z88.2 Allergy status to sulfonamides
CPT/HCPCS: 71046; 96372; 99283; J2930

== ENCOUNTER 2022-09-18 13:14 | Emergency (ER) | payer OTHER ==
--- OUTSIDE RECORDS SUMMARY | 2022-09-18 13:19 | XMS REPORT | Continuity of Care Document ---
:1970 Author Organization [facility] t Address [address] [place] [id number] Care Team Providers Name Role Phone Jorje Carrizales Primary Care Physician Doctor Unassigned, [place] Attending Clinician Unavailable Tika Gomez MD Attending Clinician TIKA GOMEZ Attending Clinician Unavailable WELLINGTON MOYER Attending Clinician Unavailable Patrice Hollins Attending Clinician RADHA TRONCOSO Attending Clinician Unavailable Horacio Duenas DO Attending Clinician Pob, Chidi Lab Main Attending Clinician Unavailable Wellington Moyer MD Attending Clinician LAURA JULIAN Admitting Clinician Unavailable Payers Payer Name Policy Type Policy Number Effective Date Expiration Date S ource Problems Condition Condition Condition Status Onset Resolution Last Treating Co mments Source Name Details Category Date Date Treatment Clinician Date Right knee Right knee Disease Active U nivers pain pain 2-25 ity of 00:00: [place] [facility] Right knee Right knee Disease Active U nivers pain pain 2-25 ity of 00:00: [place] [facility] Low back Low back Disease Active Unive rs pain pain 2-25 ity of 00:00: [place] [facility] Lumbago Lumbago Disease Active Univers 3-13 ity of 00:00: [place] [facility] Thoracic Thoracic Disease Active Overview: Un jerson or or 3-13 Formattin ity of lumbosacra lumbosacra 00:00: g of this [place] l neuritis l neuritis 00 note Me dical or or might be Branch radiculiti radiculiti different s, s, from the unspecifie unspecifie original. d d BLE radiculit is Disturbanc Disturbanc Disease Active Overview : Univers e of skin e of skin -13 Formattin i ty of sensation sensation 00:00: [place] of this [place] 00 note Medical might be Branch different from the original. BLE Muscle Muscle Disease Active Overview: Univer s weakness weakness -13 Formattin ity of (generaliz (generaliz 00:00: g of this [place] ed) ed) 00 note Medical might be Branch different from the original. BUE weakness; Distal worse than proximal leg weakness Abnormalit Abnormalit Disease Active U nivers y of gait y of gait 3-13 ity of 00:00: [place] 00 [facility] Cramp of Cramp of Disease Active Unive rs limb limb 3-13 ity of 00:00: [place] 00 [facility] Cervicalgi Cervicalgi Disease Active U nivers a a 3-13 ity of 00:00: [place] 00 [facility] Branch [...] reaction 00 Medica l ics) s Branch Penicill Propensi Active Itching Unive rs ins ty to 3-07 ity of adverse 00:00: [place] reaction 00 Medical s Branch Sulfa Propensi Active Rash Univers (Sulfona ty to 3-07 ity of mide adverse 00:00: [place] Antibiot reaction 00 Medica l ics) s Branch Social History Social Habit Start Date Stop Date Quantity Comments Source History of tobacco Cigarette Smoker University of use [facility] Exposure to 2022-05-10 2022-05-20 Not sure [facility] SARS-CoV-2 (event) 00:00:00 11:22:00 [facility] Alcohol intake 2020-11-06 2020-11-06 0 /d University of 00:00:00 00:00:00 [facility] Cigarettes smoked 2015-10-23 2015-10-23 [facility] ity of current (pack per 00:00:00 00:00:00 [facility] ) - Reported Branch Tobacco use and 2015-10-23 2015-10-23 Smokeless Universit y of exposure 00:00:00 00:00:00 tobacco non-user [facility] Sex Assigned At [birth year] Universit y of 00:00:00 00:00:00 [facility] Smoking Status Start Date Stop Date Source Smokes tobacco daily 2015-10-23 00:00:00 [facility] Ordered Filled Start Stop Current Ordering Indication Dosage Frequency Signature Comments Components Source Medication Medication Date Date Medication? Clinician (SIG) Name Name OMEPRAZOLE Yes 40mg Take 40 mg U nivers ORAL 1-11 by mouth ity of 17:42: daily. [address] OMEPRAZOLE Yes 40mg Take 40 mg U nivers ORAL 1-11 by mouth ity of 17:42: daily. [address] OMEPRAZOLE Yes 40mg Take 40 mg U nivers ORAL 1-11 by mouth ity of 17:42: daily. [address] OMEPRAZOLE Yes 40mg Take 40 mg U nivers ORAL 1-11 by mouth ity of 17:42: daily. [address] OMEPRAZOLE Yes 40mg Take 40 mg U nivers ORAL 1-11 by mouth ity of 17:42: daily. [address] OMEPRAZOLE Yes 40mg Take 40 mg U nivers ORAL 1-11 by mouth ity of 17:42: daily. [address] OMEPRAZOLE Yes 40mg Take 40 mg U nivers ORAL 1-11 by mouth ity of 17:42: daily. [address] OMEPRAZOLE Yes 40mg Take 40 mg U nivers ORAL 1-11 by mouth ity of 17:42: daily. [address] OMEPRAZOLE Yes 40mg Take 40 mg U nivers ORAL 1-11 by mouth ity of 17:42: daily. [address] OMEPRAZOLE Yes 40mg Take 40 mg U nivers ORAL 1-11 by mouth ity of 17:42: daily. [address] triamterene Yes 1{tbl} Take 1 Un jerson -hydrochlor 1-11 tablet by ity of othiazid 17:40: mouth [place] (MAXZIDE-25 48 daily. Medica l ) 37.5-25 Branch mg tablet tetrahydroz Yes 1[drp] Place 1 U nivers oline 1-11 Drop in ity of HCl/zinc 17:40: each eye [place] sulf (EYE 48 daily. In Medic al DROPS both eyes [place] ALLERGY RELIEF OPHTHALMIC) cetirizine Yes 10mg Take 10 mg U nivers (ZYRTEC) 10 1-11 by mouth ity of mg tablet 17:40: daily. [address] fluticasone Yes 2{spray Use 2 Un [...] Univers SULFATE 1-11 ity of INHALE 17:40: [address] BACLOFEN 10 Yes 1 tab TID U nivers MG ORAL TAB 1-11 ity of 17:40: [address] HYDROCODONE Yes 1-2 tabs Un jerson -ACETAMINOP 1-11 PRN pain ity of HEN 7.5-500 17:40: [place] MG ORAL TAB [address] [place] [address] Branch triamterene Yes 1{tbl} Take 1 Un jerson -hydrochlor 1-11 tablet by ity of othiazid 17:40: mouth [place] (MAXZIDE-25 48 daily. Medica l ) 37.5-25 Branch mg tablet tetrahydroz Yes 1[drp] Place 1 U nivers oline 1-11 Drop in ity of HCl/zinc 17:40: each eye [place] sulf (EYE 48 daily. In Medic al DROPS both eyes Branch ALLERGY RELIEF OPHTHALMIC) cetirizine Yes 10mg Take 10 mg U nivers (ZYRTEC) 10 1-11 by mouth ity of mg tablet 17:40: daily. [address] fluticasone Yes 2{spray Use 2 Un [...] Univers SULFATE 1-11 ity of INHALE 17:40: [address] BACLOFEN 10 Yes 1 tab TID U nivers MG ORAL TAB 1-11 ity of 17:40: [address] HYDROCODONE Yes 1-2 tabs Un jerson [...] mouth ity of mg tablet 17:40: daily. [address] fluticasone Yes 2{spray Use 2 Un [...] Univers SULFATE 1-11 ity of INHALE 17:40: [address] BACLOFEN 10 Yes 1 tab TID U nivers MG ORAL TAB 1-11 ity of 17:40: [address] HYDROCODONE Yes 1-2 tabs Un jerson -ACETAMINOP 1-11 PRN pain ity of HEN 7.5-500 17:40: [place] MG ORAL TAB [address] [place] [address] triamterene Yes 1{tbl} Take 1 Un jerson -hydrochlor 1-11 tablet by ity of othiazid 17:40: mouth [place] (MAXZIDE-25 48 daily. Medica l ) 37.5-25 Branch mg tablet tetrahydroz Yes 1[drp] Place 1 U nivers oline 1-11 Drop in ity of HCl/zinc 17:40: each eye [place] sulf (EYE 48 daily. In Medic al DROPS both eyes Branch ALLERGY RELIEF OPHTHALMIC) cetirizine Yes 10mg Take 10 mg U nivers (ZYRTEC) 10 1-11 by mouth ity of mg tablet 17:40: daily. [address] fluticasone Yes 2{spray Use 2 Un jerson (FLONASE 1-11 } Sprays in ity of SENSIMIST) 17:40: each [place] 27.5 48 nostril Medical mcg/actuati daily. Branch on nasal spray vitamin C Yes 500mg Take 500 Uni vers with jihan 1-11 mg by ity of hips 17:40: mouth [place] (VITAMIN C) 48 daily. Medica l 1,000 mg Branch tablet ALBUTEROL Yes PRN Univers SULFATE 1-11 ity of INHALE 17:40: [address] BACLOFEN 10 Yes 1 tab TID U nivers MG ORAL TAB 1-11 ity of 17:40: [address] HYDROCODONE Yes 1-2 tabs Un jerson -ACETAMINOP 1-11 PRN pain ity of HEN 7.5-500 17:40: [place] MG ORAL TAB [address] [place] [address] triamterene Yes 1{tbl} Take 1 Un jerson -hydrochlor 1-11 tablet by ity of othiazid 17:40: mouth [place] (MAXZIDE-25 48 daily. Medica l ) 37.5-25 Branch mg tablet tetrahydroz Yes 1[drp] Place 1 U nivers oline 1-11 Drop in ity of HCl/zinc 17:40: each eye [place] sulf (EYE 48 daily. In Medic al DROPS both eyes Branch ALLERGY RELIEF OPHTHALMIC) cetirizine Yes 10mg Take 10 mg U nivers (ZYRTEC) 10 1-11 by mouth ity of mg tablet 17:40: daily. [address] fluticasone Yes 2{spray Use 2 Un [...] Univers SULFATE 1-11 ity of INHALE 17:40: [address] BACLOFEN 10 Yes 1 tab TID U nivers MG ORAL TAB 1-11 ity of 17:40: [address] HYDROCODONE Yes 1-2 tabs Un jerson -ACETAMINOP 1-11 PRN pain ity of HEN 7.5-500 17:40: [place] MG ORAL TAB 48 Medical Branch triamterene 0 Yes 1{tbl} Take 1 Un [...] mouth ity of mg tablet 17:40: daily. [address] fluticasone Yes 2{spray Use 2 Un [...] Univers SULFATE 1-11 ity of INHALE 17:40: [address] BACLOFEN 10 0 Yes 1 tab TID U nivers MG ORAL TAB 1-11 ity of 17:40: [address] HYDROCODONE Yes 1-2 tabs Un jerson -ACETAMINOP 1-11 PRN pain ity of HEN 7.5-500 17:40: [place] MG ORAL TAB 48 Medical Branch triamterene 0 Yes 1{tbl} Take 1 Un [...] mouth ity of mg tablet 17:40: daily. [address] fluticasone Yes 2{spray Use 2 Un [...] Univers SULFATE 1-11 ity of INHALE 17:40: [address] BACLOFEN 10 Yes 1 tab TID U nivers MG ORAL TAB 1-11 ity of 17:40: [address] HYDROCODONE Yes 1-2 tabs Un jerson -ACETAMINOP 1-11 PRN pain ity of HEN 7.5-500 17:40: [place] MG ORAL TAB [address] [place] [address] triamterene Yes 1{tbl} Take 1 Un jerson -hydrochlor 1-11 tablet by ity of othiazid 17:40: mouth [place] (MAXZIDE-25 48 daily. Medica l ) 37.5-25 Branch mg tablet tetrahydroz Yes 1[drp] Place 1 U nivers oline 1-11 Drop in ity of HCl/zinc 17:40: each eye [place] sulf (EYE 48 daily. In Medic al DROPS both eyes [place] ALLERGY RELIEF OPHTHALMIC) cetirizine Yes 10mg Take 10 mg U nivers (ZYRTEC) 10 1-11 by mouth ity of mg tablet 17:40: daily. [address] fluticasone Yes 2{spray Use 2 Un [...] SULFATE 1-11 ity of INHALE 17:40: [address] Branch BACLOFEN 10 Yes 1 tab TID U nivers MG ORAL TAB 1-11 ity of 17:40: [address] Branch HYDROCODONE Yes 1-2 tabs Un jerson -ACETAMINOP 1-11 PRN pain ity of HEN 7.5-500 17:40: [place] MG ORAL TAB 48 Medical Branch triamterene Yes 1{tbl} Take 1 Un jerson -hydrochlor 1-11 tablet by ity of othiazid 17:40: mouth [place] (MAXZIDE-25 48 daily. Medica l ) 37.5-25 Branch mg tablet tetrahydroz Yes 1[drp] Place 1 U nivers oline 1-11 Drop in ity of HCl/zinc 17:40: each eye [place] sulf (EYE 48 daily. In Medic al DROPS both eyes Branch ALLERGY RELIEF OPHTHALMIC) cetirizine Yes 10mg Take 10 mg U nivers (ZYRTEC) 10 1-11 by mouth ity of mg tablet 17:40: daily. [address] fluticasone Yes 2{spray Use 2 Un [...] SULFATE 1-11 ity of INHALE 17:40: [address] Branch BACLOFEN 10 Yes 1 tab TID U nivers MG ORAL TAB 1-11 ity of 17:40: [address] HYDROCODONE Yes 1-2 tabs Un jerson -ACETAMINOP 1-11 PRN pain ity of HEN 7.5-500 17:40: [place] MG ORAL TAB 48 Medical Branch triamterene Yes 1{tbl} Take 1 Un jerson -hydrochlor 1-11 tablet by ity of othiazid 17:40: mouth [place] (MAXZIDE-25 48 daily. Medica l ) 37.5-25 Branch mg tablet tetrahydroz Yes 1[drp] Place 1 U nivers oline 1-11 Drop in ity of HCl/zinc 17:40: each eye [place] sulf (EYE 48 daily. In Medic al DROPS both eyes Branch ALLERGY RELIEF OPHTHALMIC) cetirizine Yes 10mg Take 10 mg U nivers (ZYRTEC) 10 1-11 by mouth ity of mg tablet 17:40: daily. [address] fluticasone Yes 2{spray Use 2 Un [...] Univers SULFATE 1-11 ity of INHALE 17:40: [address] BACLOFEN 10 Yes 1 tab TID U nivers MG ORAL TAB -11 ity of 17:40: [address] HYDROCODONE Yes 1-2 tabs Un jerson -ACETAMINOP 1-11 PRN pain ity of HEN 7.5-500 17:40: [place] MG ORAL TAB 48 Medical [place] ALEVE ORAL 2020-0 2020- No 2 tabs PRN Univers 06-02 JASMINE ity of 17:40: 00:00 [place] 48 :00 Medical [place] ALEVE ORAL 2020-0 2020- No 2 tabs PRN Univers 06-02 JASMINE ity of 17:40: 00:00 [place] 48 :00 [facility] OMEPRAZOLE Yes 40mg Take 40 mg U nivers ORAL 1-11 by mouth ity of 11:42: daily. [address] OMEPRAZOLE Yes 40mg Take 40 mg U nivers ORAL 1-11 by mouth ity of 11:42: daily. [address] OMEPRAZOLE Yes 40mg Take 40 mg U nivers ORAL 1-11 by mouth ity of 11:42: daily. [address] OMEPRAZOLE 0 Yes 40mg Take 40 mg U nivers ORAL 1-11 by mouth ity of 11:42: daily. [address] OMEPRAZOLE Yes 40mg Take 40 mg U nivers ORAL 1-11 by mouth ity of 11:42: daily. [address] ALBUTEROL 0 Yes PRN Univers SULFATE 1-11 ity of INHALE 11:40: [address] BACLOFEN 10 0 Yes 1 tab TID U nivers MG ORAL TAB 1-11 ity of 11:40: [address] HYDROCODONE Yes 1-2 tabs Un jerson -ACETAMINOP 1-11 PRN pain ity of HEN 7.5-500 11:40: [place] MG ORAL [address] triamterene Yes 1{tbl} Take 1 Un jerson -hydrochlor 1-11 tablet by ity of othiazid 11:40: mouth [place] (MAXZIDE-25 48 daily. Medica l ) 37.5-25 Branch mg tablet tetrahydroz Yes 1[drp] Place 1 U nivers oline 1-11 Drop in ity of HCl/zinc 11:40: each eye [place] sulf (EYE 48 daily. In Medic al DROPS both eyes Branch ALLERGY RELIEF OPHTHALMIC) cetirizine Yes 10mg Take 10 mg U nivers (ZYRTEC) 10 1-11 by mouth ity of mg tablet 11:40: daily. [address] fluticasone Yes 2{spray Use 2 Un jerson (FLONASE 1-11 } Sprays in ity of SENSIMIST) 11:40: each [place] 27.5 48 nostril Medical mcg/actuati daily. Branch on nasal spray vitamin C Yes 500mg Take 500 Uni vers with jihan 1-11 mg by ity of hips 11:40: mouth [place] (VITAMIN C) 48 daily. Medica l 1,000 mg Branch tablet ALBUTEROL 0 Yes PRN Univers SULFATE 1-11 ity of INHALE 11:40: [address] BACLOFEN 10 Yes 1 tab TID U nivers MG ORAL TAB 1-11 ity of 11:40: [address] HYDROCODONE Yes 1-2 tabs Un jerson -ACETAMINOP 1-11 PRN pain ity of HEN 7.5-500 11:40: [place] MG ORAL TAB 48 [facility] Branch triamterene Yes 1{tbl} Take 1 Un jerson -hydrochlor 1-11 tablet by ity of othiazid 11:40: mouth [place] (MAXZIDE-25 48 daily. Medica l ) 37.5-25 Branch mg tablet tetrahydroz Yes 1[drp] Place 1 U nivers oline 1-11 Drop in ity of HCl/zinc 11:40: each eye [place] sulf (EYE 48 daily. In Medic al DROPS both eyes Branch ALLERGY RELIEF OPHTHALMIC) cetirizine Yes 10mg Take 10 mg U nivers (ZYRTEC) 10 1-11 by mouth ity of mg tablet 11:40: daily. [address] fluticasone Yes 2{spray Use 2 Un jerson (FLONASE 1-11 } Sprays in ity of SENSIMIST) 11:40: each [place] 27.5 48 nostril Medical mcg/actuati daily. Branch on nasal spray vitamin C Yes 500mg Take 500 Uni vers with jihan 1-11 mg by ity of hips 11:40: mouth [place] (VITAMIN C) 48 daily. Medica l 1,000 mg Branch tablet ALBUTEROL Yes PRN Univers SULFATE 1-11 ity of INHALE 11:40: [address] BACLOFEN 10 Yes 1 tab TID U nivers MG ORAL TAB 1-11 ity of 11:40: [address] HYDROCODONE Yes 1-2 tabs Un jerson -ACETAMINOP 1-11 PRN pain ity of HEN 7.5-500 11:40: [place] MG ORAL TAB [address] [place] [address] Branch triamterene Yes 1{tbl} Take 1 Un jerson -hydrochlor 1-11 tablet by ity of othiazid 11:40: mouth [place] (MAXZIDE-25 48 daily. Medica l ) 37.5-25 Branch mg tablet tetrahydroz Yes 1[drp] Place 1 U nivers oline 1-11 Drop in ity of HCl/zinc 11:40: each eye [place] sulf (EYE 48 daily. In Medic al DROPS both eyes Branch ALLERGY RELIEF OPHTHALMIC) cetirizine Yes 10mg Take 10 mg U nivers (ZYRTEC) 10 1-11 by mouth ity of mg tablet 11:40: daily. [address] fluticasone Yes 2{spray Use 2 Un jerson (FLONASE 1-11 } Sprays in ity of SENSIMIST) 11:40: each [place] 27.5 48 nostril Medical mcg/actuati daily. Branch on nasal spray vitamin C Yes 500mg Take 500 Uni vers with jihan 1-11 mg by ity of hips 11:40: mouth [place] (VITAMIN C) 48 daily. Medica l 1,000 mg Branch tablet ALBUTEROL Yes PRN Univers SULFATE 1-11 ity of INHALE 11:40: [address] BACLOFEN 10 Yes 1 tab TID U nivers MG ORAL TAB 1-11 ity of 11:40: [address] HYDROCODONE Yes 1-2 tabs Un jerson -ACETAMINOP 1-11 PRN pain ity of HEN 7.5-500 11:40: [place] MG ORAL TAB [address] [place] [address] triamterene Yes 1{tbl} Take 1 Un jerson -hydrochlor 1-11 tablet by ity of othiazid 11:40: mouth [place] (MAXZIDE-25 48 daily. Medica l ) 37.5-25 Branch mg tablet tetrahydroz Yes 1[drp] Place 1 U nivers oline 1-11 Drop in ity of HCl/zinc 11:40: each eye [place] sulf (EYE 48 daily. In Medic al DROPS both eyes Branch ALLERGY RELIEF OPHTHALMIC) cetirizine Yes 10mg Take 10 mg U nivers (ZYRTEC) 10 1-11 by mouth ity of mg tablet 11:40: daily. [address] fluticasone Yes 2{spray Use 2 Un jerson (FLONASE 1-11 } Sprays in ity of SENSIMIST) 11:40: each [place] 27.5 48 nostril Medical mcg/actuati daily. Branch on nasal spray vitamin C Yes 500mg Take 500 Uni vers with jihan 1-11 mg by ity of hips 11:40: mouth [place] (VITAMIN C) 48 daily. Medica l 1,000 mg Branch tablet ALBUTEROL Yes PRN Univers SULFATE 1-11 ity of INHALE 11:40: [address] BACLOFEN 10 Yes 1 tab TID U nivers MG ORAL TAB 1-11 ity of 11:40: [address] HYDROCODONE Yes 1-2 tabs Un jerson -ACETAMINOP 1-11 PRN pain ity of HEN 7.5-500 11:40: [place] MG ORAL TAB [address] [place] [address] Branch triamterene Yes 1{tbl} Take 1 Un jerson -hydrochlor 1-11 tablet by ity of othiazid 11:40: mouth [place] (MAXZIDE-25 48 daily. Medica l ) 37.5-25 Branch mg tablet tetrahydroz Yes 1[drp] Place 1 U nivers oline 1-11 Drop in ity of HCl/zinc 11:40: each eye [place] sulf (EYE 48 daily. In Medic al DROPS both eyes Branch ALLERGY RELIEF OPHTHALMIC) cetirizine Yes 10mg Take 10 mg U nivers (ZYRTEC) 10 1-11 by mouth ity of mg tablet 11:40: daily. [address] fluticasone Yes 2{spray Use 2 Un jerson (FLONASE 1-11 } Sprays in ity of SENSIMIST) 11:40: each [place] 27.5 48 nostril Medical mcg/actuati daily. Branch on nasal spray vitamin C Yes 500mg Take 500 Uni vers with jihan 1-11 mg by ity of hips 11:40: mouth [place] (VITAMIN C) 48 daily. Medica l 1,000 mg Branch tablet ALBUTEROL Yes PRN Univers SULFATE 8-15 ity of INHALE 20:09: [address] BACLOFEN 10 Yes 1 tab TID U nivers MG ORAL TAB 8-15 ity of 20:09: [place] 36 Medical Branch HYDROCODONE 2017-0 Yes 1-2 tabs Un jerson -ACETAMINOP 8-15 PRN pain ity of HEN 7.5-500 20:09: [place] MG ORAL TAB 36 Medical Branch ALEVE ORAL 2017-0 Yes 2 tabs PRN U nivers 8-15 JASMINE ity of 20:09: [place] 36 [facility] Branch triamterene 2016- Yes 1{tbl} Take 1 Un jerson -hydrochlor [...] Medical D3) 2,000 Branch unit capsule levothyroxi 0 Yes 50ug Take 50 Uni vers ne 4-27 mcg by ity of (SYNTHROID) 00:00: mouth [place] 50 mcg 00 every Medical tablet morning. Branch Cholecalcif Yes 1{capsu Take 1 U nivers scott, 4-27 le} capsule by ity of Vitamin D3, 00:00: mouth [place] (VITAMIN 00 daily. Medical D3) 2,000 Branch unit capsule levothyroxi 0 Yes 50ug Take 50 Uni vers ne 4-27 mcg by ity of (SYNTHROID) 00:00: mouth [place] 50 mcg 00 every Medical tablet morning. Branch Cholecalcif Yes 1{capsu Take 1 U nivers scott, 4-27 le} capsule by ity of Vitamin D3, 00:00: mouth [place] (VITAMIN 00 daily. Medical D3) 2,000 Branch unit capsule levothyroxi 0 Yes 50ug Take 50 Uni vers ne 4-27 mcg by ity of (SYNTHROID) 00:00: mouth [place] 50 mcg 00 every Medical tablet morning. Branch Cholecalcif Yes 1{capsu Take 1 U nivers scott, 4-27 le} capsule by ity of Vitamin D3, 00:00: mouth [place] (VITAMIN 00 daily. Medical D3) 2,000 Branch unit capsule levothyroxi 0 Yes 50ug Take 50 Uni vers ne 4-27 mcg by ity of (SYNTHROID) 00:00: mouth [place] 50 mcg 00 every Medical tablet morning. Branch Cholecalcif Yes 1{capsu Take 1 U nivers scott, 4-27 le} capsule by ity of Vitamin D3, 00:00: mouth [place] (VITAMIN 00 daily. Medical D3) 2,000 Branch unit capsule levothyroxi 0 Yes 50ug Take 50 Uni vers ne 4-27 mcg by ity of (SYNTHROID) 00:00: mouth [place] 50 mcg 00 every Medical tablet morning. Branch Cholecalcif Yes 1{capsu Take 1 U nivers scott, 4-27 le} capsule by ity of Vitamin D3, 00:00: mouth [place] (VITAMIN 00 daily. Medical D3) 2,000 Branch unit capsule levothyroxi 0 Yes 50ug Take 50 Uni vers ne 4-27 mcg by ity of (SYNTHROID) 00:00: mouth [place] 50 mcg 00 every Medical tablet morning. Branch Cholecalcif Yes 1{capsu Take 1 U nivers scott, 4-27 le} capsule by ity of Vitamin D3, 00:00: mouth [place] (VITAMIN 00 daily. Medical D3) 2,000 Branch unit capsule levothyroxi 0 Yes 50ug Take 50 Uni vers ne [...] Medical D3) 2,000 Branch unit capsule levothyroxi 0 Yes 50ug Take 50 Uni vers ne [...] 00 every Medical tablet morning. Branch Cholecalcif 0 Yes 1{capsu Take 1 U nivers scott, 4-27 le} capsule by ity of Vitamin D3, 00:00: mouth [place] (VITAMIN 00 daily. Medical D3) 2,000 Branch unit capsule levothyroxi Yes 50ug Take 50 Uni vers ne 4-27 mcg by ity of (SYNTHROID) 00:00: mouth [place] 50 mcg 00 every Medical tablet morning. Branch nortriptyli Yes 75mg Take 75 mg Univers ne 3-31 by mouth ity of (PAMELOR) 00:00: at [place] 25 mg 00 bedtime. Medical capsule Branch nortriptyli Yes 75mg Take 75 mg Univers ne 3-31 by mouth ity of (PAMELOR) 00:00: at [place] 25 mg 00 bedtime. Medical capsule Branch nortriptyli 0 Yes 75mg Take 75 mg Univers ne 3-31 by mouth ity of (PAMELOR) 00:00: at [place] 25 mg 00 bedtime. Medical capsule Branch nortriptyli 0 Yes 75mg Take 75 mg Univers ne 3-31 by mouth ity of (PAMELOR) 00:00: at [place] 25 mg 00 bedtime. Medical capsule Branch nortriptyli 0 Yes 75mg Take 75 mg Univers ne 3-31 by mouth ity of (PAMELOR) 00:00: at [place] 25 mg 00 bedtime. Medical capsule Branch nortriptyli 0 Yes 75mg Take 75 mg Univers ne 3-31 by mouth ity of (PAMELOR) 00:00: at [place] 25 mg 00 bedtime. Medical capsule Branch nortriptyli 0 Yes 75mg Take 75 mg Univers ne 3-31 by mouth ity of (PAMELOR) 00:00: at [place] 25 mg 00 bedtime. Medical capsule Branch nortriptyli 0 Yes 75mg Take 75 mg Univers ne [...] 10 mg 00 Medical tablet Branch escitalopra 2016-0 Yes 10mg Take 10 mg Univers m oxalate 2-17 by mouth ity of (LEXAPRO) 00:00: daily. [place] 10 mg 00 Medical tablet Branch escitalopra 2016-0 Yes 10mg Take 10 mg Univers m oxalate 2-17 by mouth ity of (LEXAPRO) 00:00: daily. [place] 10 mg 00 Medical tablet Branch escitalopra 2016-0 Yes 10mg Take 10 [...] 10 mg 00 Medical tablet Branch escitalopra 0 Yes 10mg Take 10 mg Univers m oxalate 2-17 by mouth ity of (LEXAPRO) 00:00: daily. [place] 10 mg 00 Medical tablet Branch escitalopra 0 Yes 10mg Take 10 mg Univers m oxalate 2-17 by mouth ity of (LEXAPRO) 00:00: daily. [place] 10 mg 00 Medical tablet Branch escitalopra 0 Yes 10mg Take 10 mg Univers m oxalate 2-17 by mouth ity of (LEXAPRO) 00:00: daily. [place] 10 mg 00 Medical tablet Branch escitalopra Yes 10mg Take 10 mg Univers m oxalate 2-17 by mouth ity of (LEXAPRO) 00:00: daily. [place] 10 mg 00 Medical tablet Branch gabapentin 2016-0 Yes 600mg Take 600 Un [...] Time Observation Value Comments Source Systolic blood 2022-05-20 17:39:00 116 mm[Hg] Univer sity [place] [facility] Diastolic blood 2022-05-20 17:39:00 68 [facility]Hg[facility] 17:39:00 75 /min [facility] Oxygen saturation in 2022-05-20 17:39:00 99 /min [facility] Arterial blood by [facility] Pulse oximetry Branch Body height 2022-05-20 17:25:00 167.6 cm [facility] Body weight 2022-05-20 17:25:00 106.595 kg [facility] BMI 2022-05-20 17:25:00 37.93 kg/m2 [facility] Systolic blood 2020-11-06 14:07:00 124 mm[Hg] Univer sity [place] [facility] Diastolic blood 2020-11-06 14:07:00 81 mm[Hg] Unive rsity [place] [facility] Heart rate 2020-11-06 14:07:00 90 /min [facility] Body height 2020-11-06 14:07:00 167.6 cm [facility] Body weight 2020-11-06 14:07:00 108.863 kg [facility] [place] [facility] BMI 2020-11-06 14:07:00 38.74 kg/m2 [facility] [place] [facility] Systolic blood 2020-06-02 17:36:00 136 mm[Hg] Univer sity of pressure [facility] Branch Diastolic blood 2020-06-02 17:36:00 83 mm[Hg] Unive rsity of pressure [facility] Branch Heart rate 2020-06-02 17:36:00 81 /min [facility] [place] [facility] Respiratory rate 2020-06-02 17:36:00 18 /min [facility] [place] [facility] Body height 2020-06-02 17:36:00 167.6 cm [facility] [place] Medical Branch Body weight 2020-06-02 17:36:00 109.135 kg [facility] [place] [facility] BMI 2020-06-02 17:36:00 38.83 kg/m2 [facility] Oxygen saturation in 2020-06-02 17:36:00 93 /min [facility] Arterial blood by [facility] Pulse oximetry Branch Procedures Procedure Date / Time Performed Performing Clinician Sourc e EXTERNAL PROVIDER 2022-06-03 06:01:00 Doctor Unassigned, No [facility] [place] [facility] Name [facility] REFERRAL- 2022-05-09 06:01:00 Doctor Unassigned, No [facility] [place] REQUEST/RESPONSE Name Medical Branch REFERRAL- 2021-01-09 05:01:00 Doctor Unassigned, No [facility] [place] REQUEST/RESPONSE Name Medical Branch REFERRAL- 2020-12-12 05:01:00 Doctor Unassigned, No [facility] [place] REQUEST/RESPONSE Name Medical Branch REFERRAL- 2020-11-12 05:01:00 Doctor Unassigned, No [facility] [place] REQUEST/RESPONSE Name Medical Branch ASSIGNMENT OF BENEFITS 2020-06-02 17:30:05 Doctor Unassigned, No [facility] Name Medical Branch Encounters Start End Encounter Admission Attending Care Care Encounter Source Date/Time Date/Time Type Type Clinicians Facility Department ID 2022-08-16 2022-08-16 Outpatient SFA JESSICA [id number] Santy 17:43:52 17:43:52 [id number] Divya Chew 2022-08-11 2022-08-11 Outpatient [facility] [id number] Santy 17:21:25 17:21:25 [id number] F Jackson 2022-08-09 2022-08-09 Outpatient [facility] [id number] Santy 10:20:42 10:20:42 [id number] F Jackson 2022-06-03 2022-06-03 Orders Doctor CONNORS [id number] Univers 00:00:00 00:00:00 Only Unassigned, ALONSO 350.1.13.10 ity of [facility] 4.2.7.2.686 Kenny as [phone] [address] 2022-05-20 2022-05-20 Office [facility] [id number] Univers 11:15:00 11:30:00 Visit [facility] [address] [employer] 350.1.13.10 it y of [facility] 4.2.7.2.686 Kenny as JUAN CARLOS?BLEA [id number] [address] OFFICE [facility] 2022-05-20 2022-05-20 [facility]patient [facility] [id number] Univers 11:15:00 11:15:00 ITKA ity [facility] 2022-05-11 2022-05-11 Telephone [facility] [id number] [facility] 00:00:00 00:00:00 Tika [address] [employer] 350.1.13.10 it y of [place] 4.2.7.2.686 Kenny as JUAN CARLOS?BLEA [phone] [address] OFFICE [facility] 2022-05-09 2022-05-09 Orders Doctor CONNORS 1.2.840.114 [id number] Univers 00:00:00 00:00:00 Only Unassigned, ALONSO 350.1.13.10 ity of [facility] 4.2.7.2.686 Kenny as [phone] [address] 2021-01-09 2021-01-09 Orders Doctor CONNORS 1.2.840.114 [id number] Univers 00:00:00 00:00:00 Only Unassigned, ALONSO 350.1.13.10 ity of [facility] 4.2.7.2.686 Kenny as [phone] [address] 2020-12-12 2020-12-12 Orders Doctor DORY 1.2.840.114 [id number] Univers 00:00:00 00:00:00 Only Unassigned, ALONSO 350.1.13.10 ity of [facility] 4.2.7.2.686 Kenny as [phone] [address] 2020-12-01 2020-12-01 Outpatient R [facility] [id number] Univers 12:00:00 12:00:00 [facility] 2020-11-12 2020-11-12 Orders Doctor DORY 1.2.840.114 [id number] Univers 00:00:00 00:00:00 Only Unassigned, ALONSO 350.1.13.10 ity of [facility] 4.2.7.2.686 Kenny as [phone] [address] 2020-11-06 2020-11-06 Office Patrice Willoughby [facility] 1.2.840.114 [id number] Univers 09:06:43 09:21:43 Visit Tika [facility] 350.1.13.10 ity of Surgical 4.2.7.2.686 Kenny as Specialti [phone] Or dical es 198 [facility] 2020-11-06 2020-11-06 Outpatient R [facility] [id number] Univers 09:15:00 09:15:00 [facility] 2020-10-15 2020-10-15 Outpatient Yaneth [facility] [id number] Univers 11:01:17 23:59:00 [facility] 2020-08-07 2020-08-07 Patient Henrique [facility] 1.2.840.114 [id number] Univers 00:00:00 00:00:00 Outreach Horacio PRIMARY 350.1.13.10 i [place] [phone] Or dical [address] 2020-06-02 2020-06-02 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 Светлана, Adc Lab Main [facility] [id number] [id number] Univers 12:31:35 12:46:35 Visit Wellington Moyer 350.1.13.10 [place] [phone] Or dical nal 353 [facility] 2020-06-02 2020-06-02 Office João [facility] 1.2.840.114 [id number] Univers 11:31:59 12:01:59 Visit Wellington Estrella 350.1.13.10 [place] [phone] Or dical nal 220 [facility] 2020-06-02 2020-06-02 Outpatient R [facility] [id number] Univers 11:30:00 11:30:00 [place] ity [facility] 2020-06-02 2020-06-02 Orders Doctor DORY 1.2.840.114 [id number] Univers 00:00:00 00:00:00 Only Unassigned, ALONSO 350.1.13.10 ity of [facility] 4.2.7.2.686 Kenny as [phone] [address] Results Test Description Test Time Test Comments Results Result Comments Source TSH, THIRD GENERATION 2022-08-10 05:25:24 Test Item Value Reference Range Interpretation Comme nts TSH, THIRD GENERATION 1.750 UIU/ML 0.400-4.[address] has important pathology (test code = 2821) staff wallace hargrove effective 07/21/2022. New patholo gy staff will provide uninter rupted, excellent patient care an d clinical consultation. S ee URL: [email or web address]. UNLESS OTHERWIS E INDICATED, ALL TESTING PERFORM ED AT CLINICAL PATH[facility] [address] [place] [id number] SHOE RECONDITIONER: RIVKA LOCKE M.D. CLIA NUMBER [id number] CAP ACCREDITATION N O. [id number] HEMOGLOBIN [id number] 04:59:50 Test Item Value Reference Range Interpretation Comments HEMOGLOBIN A1c (test 5.8 % 4.2-5.6 H AMERIC AN DIABETES code = 90237) ASSOCIATION IDELINES FOR HGB A1C: PREDIABETES/INC REASED RISK . . . . . . . 5.7 -6.4% DIAGNOSIS OF DI ABETES . . . . . . . . . >=6 .5% WITH CONFIRMATION OR APPROPRIATE SYMPTOMS NOTE: ASSAY MAY BE AFFECTED BY HEMOGLOBINOPATH IES (SICKLE CELL ANEMIA, S- C DISEASE, OTHERS) OR THOMPSON FICIALLY LOWERED BY DECR EASED RED CELL SURVIVAL ( HEMOLYTIC ANEMIAS, BLOOD LOSS, ETC.). CONSIDER ALTERN ATE TESTING OR LABORATORY C ONSULTATION. LIPID [id number] 03:46:00 Test Item Value Reference Range Interpretation Comments CHOLESTEROL (test 156 MG/DL <200 code = 2210) TRIGLYCERIDES (test 193 MG/DL <150 H code = 2232) HDL CHOLESTEROL (test 37 MG/DL >39 L code = 2220) CALC LDL CHOL (test 90 MG/DL <100 NOTE: C ALCULATED LDL code = 2237) IS BASED ON JOSE-MERCER METHOD WHICHINCLUDES ADJUSTABLE TRIGLYCERIDE:VL DL CHOLESTEROL RAT IO.THIS FACTOR VARIES B Y MEASURED TRIGLY CERIDE AND NON-HDLCHOL ESTEROL CONCENTRATIONS WITH INCREASED CALCU LATED LDL SEENIN HIGH ER TRIGLYCERIDE OR LOWER NON-HDL SPECIME NS. FOR MOREINFORMATION , SEE CLIENT ANNOUNCE MENT AT [email or web address] RISK RATIO LDL/HDL 2.43 RATIO <3.22 (test code = 2238) COMPREHENSIVE METABOLIC [id number] 03:46:00 Test Item Value Reference Range Interpretation Comments GLUCOSE (test code = 76 MG/DL 70-99 2216) BUN (test code = 15 MG/DL -20 2207) CREATININE (test 1.10 MG/DL 0.60-1.30 code = 2214) eGFR (2020 CKD-EPI) 61 ML/MIN/1.73 >60 (test code = 28199) CALC BUN/CREAT (test 14 RATIO 6-28 code = 2235) SODIUM (test code = 143 MEQ/L 282-004 2700) POTASSIUM (test code 4.5 MEQ/L 3.5-5.4 = 2227) CHLORIDE (test code 101 MEQ/L 95-107 = 2214) CARBON DIOXIDE (test 28 MEQ/L 19-31 code = 2206) CALCIUM (test code = 9.8 MG/DL 8.5-10.5 2208) PROTEIN, TOTAL (test 7.5 G/DL 6.1-8.3 code = 2229) ALBUMIN (test code = 4.5 G/DL 3.5-5.2 2200) CALC GLOBULIN (test 3.0 G/DL 1.9-3.7 code = 2240) CALC A/G RATIO (test 1.5 RATIO 1.0-2.6 code = 2234) BILIRUBIN, TOTAL 0.3 MG/DL See_Comment [Automated message] (test code = 220) The syste m which generated this result transmit davie reference range : <=1.2. The refe rence range was not u sed to interpret th is result as normal/abnormal . ALKALINE PHOSPHATASE 86 U/L 40-130 (test code = 2203) AST (test code = 33 U/L 9-40 2217) ALT (test code = 55 U/L 5-40 H 2218) CBC W/AUTO DIFF WITH [id number] 03:40:09 Test Item Value Reference Range Interpretation Comments WBC (test code = 10.1 K/UL 3.5-11.0 1001) RBC (test code = 5.08 M/UL 3.80-5.40 1002) HEMOGLOBIN (test code 16.2 G/DL 11.5-15.5 H = 1003) HEMATOCRIT (test code 47.9 % 34.0-45.0 H = 1004) MCV (test code = 94.3 fL 80.0-99.0 1005) MCH (test code = 31.9 PG 25.0-33.0 1006) MCHC (test code = 33.8 G/DL 31.0-36.0 1007) RDW (test code = 12.0 % 11.5-15.0 1038) NEUTROPHILS (test 60.5 % code = 1008) LYMPHOCYTES (test 26.4 % code = 1010) MONOCYTES (test code 8.8 % = 1011) EOSINOPHILS (test 2.9 % code = 1012) BASOPHILS (test code 1.1 % = 1013) IMMATURE GRANULOCYTES 0.3 % (test code = 1036) NUCLEATED RBCS (test 0.0 /100 WBC'S See_Comment [Aut omated code = 1065) message] The sy stem which generated this result transmitted reference range : 0.0. The refere nce range was not u sed to interpret th is result as normal/abnormal . PLATELET COUNT (test 216 K/UL 130-400 code = 1015) ABSOLUTE NEUTROPHILS 6.13 K/UL 1.50-7.50 (test code = 1066) ABSOLUTE LYMPHOCYTES 2.67 K/UL 1.00-4.00 (test code = 1067) ABSOLUTE MONOCYTES 0.89 K/UL 0.20-1.00 (test code = 1068) ABSOLUTE EOSINOPHILS 0.29 K/UL 0.00-0.50 (test code = 1040) ABSOLUTE BASOPHILS 0.11 K/UL 0.00-0.20 (test code = 1069) ABS IMMATURE 0.03 K/UL 0.00-0.10 GRANULOCYTES (test code = 1020) ABS NUCLEATED RBCS 0.00 K/UL 0.00-0.11 (test code = 76842)"
--- NOTE | 2022-09-18 14:28 | RAD REPORT ---
EXAM DESCRIPTION: US - Extremity Venous Uni Ltd - 09/18/2022 1:58 pm CLINICAL HISTORY: Pain COMPARISON: None. TECHNIQUE: Real-time sonographic evaluation of the right lower extremity deep venous system was perf ormed. FINDINGS: Normal compressibility, flow augmentation, phasic flow and spontaneous flow is identified in the right lower extremity deep venous system. No intraluminal filling defects seen. IMPRESSION: No evidence of DVT in the right lower extremity.
--- NOTE | 2022-09-18 14:57 | ER ---
Nurse's Notes [facility] Name: Bethany Saeed Age: 52 yrs Sex: Female : 1970 Arrival Date: 09/18/2022 Time: 13:14 Bed Treatment Private MD: Jorje Carrizales E Diagnosis: Pain in right ankle and joints of right foot Presentation: 09/18 13:20 Chief complaint: Right ankle pain x 1 week. Denies injury. Coronavirus screen: At this hb time, the client does not indicate any symptoms associated with coronavirus-19. Ebola Screen: No symptoms or risks identified at this time. Initial Sepsis Screen: Does the patient meet any 2 criteria? No. Patient's initial sepsis screen is negative. Does the patient have a suspected source of infection? No. Patient's initial sepsis screen is negative. Risk Assessment: Do you want to hurt yourself or someone else? Patient reports no desire to harm self or others. Onset of symptoms was September 11, 2022. 13:20 Method Of Arrival: Ambulatory hb 13:20 Acuity: ROE 4 hb Triage Assessment: 13:24 General: Appears in no apparent distress. Behavior is calm, cooperative. Pain: Pain hb currently is 7 out of 10 on a pain scale. Neuro: Level of Consciousness is awake, alert, obeys commands, Oriented to person, place, time, situation. Cardiovascular: Patient's skin is warm and dry. Respiratory: Respiratory effort is even, unlabored, Respiratory pattern is regular, symmetrical. Historical: - Allergies: 13:21 PENICILLINS; hb 13:21 Sulfa (Sulfonamide Antibiotics); hb - Home Meds: 13:21 amitriptyline 75 mg Oral tab 1 tab once daily [Active]; baclofen 10 mg Oral tab hb [Active]; erythromycin ophthalmic (eye) Opht [Active]; Lasix Oral [Active]; levothyroxine 50 mcg tab [Active]; loteprednol etabonate ophthalmic (eye) [Active]; triamterene-hydrochlorothiazid 37.5-25 mg Oral tab [Active]; neurotin 600mg TID, [Active]; omeprazole 40 mg Oral cpDR [Active]; 13:23 azelastine nasal [Active]; hb - PMHx: 13:21 Anxiety; Depression; Bronchitis; Hypothyroidism; neuropathy; NIDDM,; psorasis; hb - Immunization history:: Adult Immunizations unknown. - Social history:: Smoking status: unknown. Screenin:19 [facility] ED Fall Risk Assessment (Adult) History of falling in the last 3 months, nj1 including since admission No falls in past 3 months (0 pts) Confusion or Disorientation No (0 pts) Intoxicated or Sedated No (0 pts) Impaired Gait Yes (1 pt) Mobility Assist Device Used No (0 pt) Altered Elimination No (0 pt) Score/Fall Risk Level 0 - 2 = Low Risk Oriented to surroundings, Maintained a safe environment, Hourly rounding (assess needs \T\ fall precautionary measures) done. 15:19 Abuse screen: Denies threats or abuse. Denies injuries from another. Nutritional nj1 screening: No deficits noted. Tuberculosis screening: No symptoms or risk factors identified. Assessment: 15:19 Reassessment: Patient appears in no apparent distress at this time. Patient and/or nj1 family updated on plan of care and expected duration. Pain level reassessed. Patient is alert, oriented x 3, equal unlabored respirations, skin warm/dry/pink. 15:19 Pain: Complains of pain in right ankle Pain currently is 6 out of 10 on a pain scale. nj1 Aggravated by walking. Vital Signs: 13:20 BP 122 / 75; Pulse 87; Resp 18; Temp 97.8; Pulse Ox 100% on R/A; Weight 104.33 kg; hb Height 5 ft. 5 in. ; Pain 7/10; 13:20 Body Mass Index 38.27 (104.33 kg, 165.1 cm) hb 13:20 Pain Scale: Adult hb ED Course: 13:15 Patient arrived in ED. am2 13:16 Jorje Carrizales MD is Private Physician. am2 13:18 Guillermo Young PA is PHCP. cp 13:18 Michael Jonas DO is Attending Physician. cp 13:21 Triage completed. hb 13:23 Arm band placed on. hb 14:00 US Extremity Venous Unilateral Ltd In Process Unspecified. EDMS 14:36 XRAY Ankle RIGHT 3 view In Process Unspecified. EDMS 14:55 Allen Milligan MD is Referral Physician. cp 15:13 Crystal Raymond RN is Primary Nurse. nj1 15:19 Patient has correct armband on for positive identification. Bed in low position. Call nj1 light in reach. 15:25 Walking boot applied (short, large). nj1 15:30 No provider procedures requiring assistance completed. nj1 15:30 Patient did not have IV access during this emergency room visit. nj1 Administered Medications: 15:19 Drug: Ibuprofen PO 800 mg Route: PO; nj1 15:30 Follow up: Response: No adverse reaction nj1 Medication: 15:30 VIS not applicable for this client. nj1 Outcome: 14:57 Discharge ordered by . cp 15:30 Discharged to home ambulatory, with family. nj1 15:30 Condition: stable 15:30 Discharge instructions given to patient, Instructed on discharge instructions, follow up and referral plans. medication usage, safety practices, Demonstrated understanding of instructions, follow-up care, medications, Prescriptions given X 1. 15:35 Patient left the ED. nj1 Signatures: Dispatcher [employer] EDMS Guillermo Young PA PA cp Baxter, Heather, RN RN Jaja Johnson 2 Crystal Raymond RN RN nj1 Corrections: (The following items were deleted from the chart) 15:31 15:31 Ibuprofen PO 800 mg PO nj1 nj1 15:34 15:19 Pain: Complains of pain in right ankle Pain currently is 8 out of 10 on a pain nj1 scale. Aggravated by walking nj1
--- NOTE | 2022-09-18 14:57 | EDPHYS ---
Physician Documentation [facility] Name: Bethany Saeed Age: 52 yrs Sex: Female : 1970 Arrival Date: 09/18/2022 Time: 13:14 Bed Treatment Private MD: Jorje Carrizales E ED Physician Michael Jonas HPI: 09/18 13:40 This 52 yrs old Female presents to ER via Ambulatory with complaints of Foot Pain, Leg cp Pain. 13:40 The patient presents with pain, that is acute. cp 13:40 The complaints affect the right ankle and anterior aspect of right ankle. cp 13:40 Context: resulted from an unknown cause, the patient can fully bear weight, the patient cp is able to ambulate, with mild difficulty. Onset: The symptoms/episode began/occurred 1 week(s) ago. Treatment prior to arrival includes: angeles wrap, wearing splint. Severity of symptoms: in the emergency department the symptoms are unchanged, despite home interventions. Historical: - Allergies: 13:21 PENICILLINS; hb 13:21 Sulfa (Sulfonamide Antibiotics); hb - Home Meds: 13:21 amitriptyline 75 mg Oral tab 1 tab once daily [Active]; baclofen 10 mg Oral tab hb [Active]; erythromycin ophthalmic (eye) Opht [Active]; Lasix Oral [Active]; levothyroxine 50 mcg tab [Active]; loteprednol etabonate ophthalmic (eye) [Active]; triamterene-hydrochlorothiazid 37.5-25 mg Oral tab [Active]; neurotin 600mg TID, [Active]; omeprazole 40 mg Oral cpDR [Active]; 13:23 azelastine nasal [Active]; hb - PMHx: 13:21 Anxiety; Depression; Bronchitis; Hypothyroidism; neuropathy; NIDDM,; psorasis; hb - Immunization history:: Adult Immunizations unknown. - Social history:: Smoking status: unknown. ROS: 13:45 Constitutional: Negative for body aches, chills, fever. cp 13:45 Respiratory: Negative for cough, shortness of breath, wheezing. 13:45 MS/extremity: Positive for pain, of the right ankle and right lower leg and right foot. 13:45 Cardiovascular: Negative for chest pain, edema. cp 13:45 Abdomen/GI: Negative for abdominal pain. 13:45 Back: Negative for pain at rest, pain with movement. 13:45 Neuro: Negative for altered mental status, headache, weakness. 13:45 All other systems are negative. Exam: 13:50 Constitutional: The patient appears in no acute distress, alert, awake, cp non-diaphoretic, non-toxic, well developed, well nourished, obese. 13:50 Head/Face: Normocephalic, atraumatic. cp 13:50 Chest/axilla: Inspection: normal. 13:50 Cardiovascular: Rate: normal, Edema: is not appreciated, JVD: is not appreciated. 13:50 Respiratory: the patient does not display signs of respiratory distress, Respirations: normal, no use of accessory muscles, no retractions, labored breathing, is not present. 13:50 Abdomen/GI: Exam negative for discomfort, distension, guarding, Inspection: abdomen appears normal. 13:50 Back: pain, is absent, ROM is normal. 13:50 Musculoskeletal/extremity: Extremities: grossly normal except: noted in the right lower leg and right ankle and right foot: pain, swelling, tenderness, There is no evidence of decreased ROM, deformity, erythema, ROM: full passive range of motion, in the right ankle, Pulses: noted to be 2+ in the right dorsalis pedis artery, Calf tenderness, that is mild, of the right lower extremity. Vital Signs: 13:20 BP 122 / 75; Pulse 87; Resp 18; Temp 97.8; Pulse Ox 100% on R/A; Weight 104.33 kg; hb Height 5 ft. 5 in. ; Pain 7/10; 13:20 Body Mass Index 38.27 (104.33 kg, 165.1 cm) hb 13:20 Pain Scale: Adult hb MDM: 13:25 Patient medically screened. cp 14:53 Independent interpretation of the following test(s) in the Emergency Department X-Ray: cp My interpretation is xrays of right ankle negative for fracture. 14:56 Data reviewed: vital signs, nurses notes, radiologic studies, plain films, ultrasound. cp 14:56 Differential diagnosis: tendonitis, DVT, fracture, cellulitis. I considered the cp following discharge prescriptions or medication management in the emergency department Medications were administered in the Emergency Department. See MAR. Care significantly affected by the following chronic conditions: neuropathy. Counseling: I had a detailed discussion with the patient and/or guardian regarding: the historical points, exam findings, and any diagnostic results supporting the discharge/admit diagnosis, radiology results, to return to the emergency department if symptoms worsen or persist or if there are any questions or concerns that arise at home. Response to treatment: the patient's symptoms have mildly improved after treatment. 09/18 13:35 Order name: XRAY Ankle RIGHT 3 view cp 09/18 13:35 Order name: US Extremity Venous Unilateral Ltd cp 09/18 14:54 Order name: Walking boot; Complete Time: 15:31 cp Administered Medications: 15:19 Drug: Ibuprofen PO 800 mg Route: PO; nj1 15:30 Follow up: Response: No adverse reaction nj1 Disposition: 15:15 Chart complete. cp 20:15 Co-signature as Attending Physician, Michael Jonas DO I was immediately available on-site ms3 in the Emergency Department for consultation in the care of the patient. Disposition Summary: 09/18/22 14:57 Discharge Ordered Location: Home cp Problem: new cp Symptoms: have improved cp Condition: Stable cp Diagnosis - Pain in right ankle and joints of right foot cp Followup: cp - With: Allen Milligan MD - When: 1 week - Reason: pain continues Discharge Instructions: - Discharge Summary Sheet cp - Ankle Pain cp - Foot Pain cp Forms: - Medication Reconciliation Form cp - Thank You Letter cp - Antibiotic Education cp - Prescription Opioid Use cp Prescriptions: - Mobic 7.5 mg Oral Tablet - take 1 tablet by ORAL route once daily take with food; 20 tablet; Refills: 0, cp Product Selection Permitted Signatures: Dispatcher [employer] EDOK Guillermo Young PA PA cp Vilma Thompson RN Michael Carreon DO DO ms3 Crystal Raymond RN RN nj1 Corrections: (The following items were deleted from the chart) 09/19 14:14 13:56 MS/extremity: Positive for pain, of the right ankle and right lower leg and right cp foot, cp 14:14 13:56 Constitutional: Negative for body aches, chills, fever, cp cp 14:14 13:56 Respiratory: Negative for cough, shortness of breath, wheezing, cp cp
[2022-09-18] MEDS ORDERED: IBUPROFEN 400 MG TAB ONE (15:20)
--- NOTE | 2022-09-18 15:45 | RAD REPORT ---
EXAM DESCRIPTION: RAD - Ankle Right 3 View - 09/18/2022 2:34 pm CLINICAL HISTORY: PAIN COMPARISON: Ankle Right 3 View dated 09/10/2021 TECHNIQUE: Right ankle, 3 views. FINDINGS: No fracture, dislocation or periosteal reaction. No joint effusion seen. No joint space na rrowing. No soft tissue abnormality. Moderate calcaneal spur again seen. IMPRESSION: No acute osseous abnormality of the right ankle. Moderate calcaneal spur.
[2022-09-18 15:46] VITALS: BP 122/75; TEMP 97.8; O2SAT 100
== END 2022-09-18 15:35 | disposition home or self-care (01) ==
LOC: ER 13:14
DX: M25.571 Pain in right ankle and joints of right foot (principal); Z88.0 Allergy status to penicillin; Z88.2 Allergy status to sulfonamides
CPT/HCPCS: 93971; 99284

== ENCOUNTER 2022-11-08 07:07 | Emergency (ER) | payer OTHER ==
[2022-11-08] MEDS ORDERED: NA CHLORIDE 0.9% 1,000 ML ONE (07:55)
[2022-11-08] MEDS ORDERED: DIPHENHYDRAMINE 50 MG/ML VIAL ONE (07:55)
[2022-11-08] MEDS ORDERED: METHYLPREDNISOLONE 125 MG INJ ONE (07:58)
--- OUTSIDE RECORDS SUMMARY | 2022-11-08 09:11 | XMS REPORT | Continuity of Care Document ---
:1970 Author Organization [facility] t Address [address] [place] [id number] Care Team Providers Name Role Phone Jorje Carrizales Primary Care Physician Doctor Unassigned, [place] Attending Clinician Unavailable Tika Gomez MD Attending [...] nivers pain pain 2-25 ity of 00:00: [place] [facility] Right knee Right knee Disease Active U nivers pain pain 2-25 ity of 00:00: [place] [facility] Low back Low back Disease Active Unive rs pain pain 2-25 ity of 00:00: [place] [facility] Lumbago Lumbago Disease Active Univers 3-13 ity of 00:00: [place] [facility] Thoracic Thoracic Disease Active Overview: Un jerson or or 3-13 Formatt[place] ity of lumbosacra lumbosacra 00:00: g of this [place] l neuritis l neuritis 00 note Me [...] of (generaliz (generaliz 00:00: g of this [place] ed) ed) 00 note Medical might be [...] of tobacco Cigarette Smoker University of use [facility] Exposure to 2022-05-10 2022-05-20 Not sure [facility] SARS-CoV-2 (event) 00:00:00 11:22:00 [facility] Alcohol intake 2020-11-06 2020-11-06 0 /d University of 00:00:00 00:00:00 [facility] Cigarettes smoked 2015-10-23 2015-10-23 [facility] ity of current (pack per 00:00:00 00:00:00 [facility] ) - Reported Branch Tobacco use and 2015-10-23 2015-10-23 Smokeless Universit y of exposure 00:00:00 00:00:00 tobacco non-user [facility] Sex Assigned At [birth year] Universit y of 00:00:00 00:00:00 [facility] Smoking Status Start Date Stop Date Source Smokes tobacco daily 2015-10-23 00:00:00 [facility] Medications Ordered Filled Start Stop Current Ordering Indication Dosage Frequency Signature Comments Components Source Medication Medication Date Date Medication? Clinician (SIG) Name Name OMEPRAZOLE Yes 40mg Take 40 mg U nivers ORAL 1-11 by mouth ity of 17:42: daily. [address] OMEPRAZOLE Yes 40mg Take 40 mg U nivers ORAL 1-11 by mouth ity of 17:42: daily. [address] OMEPRAZOLE Yes 40mg Take 40 mg U nivers ORAL 1-11 by mouth ity of 17:42: daily. [address] OMEPRAZOLE Yes 40mg Take 40 mg U nivers ORAL 1-11 by mouth ity of 17:42: daily. [address] OMEPRAZOLE Yes 40mg Take 40 mg U nivers ORAL 1-11 by mouth ity of 17:42: daily. [address] OMEPRAZOLE Yes 40mg Take 40 mg U nivers ORAL 1-11 by mouth ity of 17:42: daily. [address] OMEPRAZOLE Yes 40mg Take 40 mg U nivers ORAL 1-11 by mouth ity of 17:42: daily. [address] OMEPRAZOLE Yes 40mg Take 40 mg U nivers ORAL 1-11 by mouth ity of 17:42: daily. [address] OMEPRAZOLE Yes 40mg Take 40 mg U nivers ORAL 1-11 by mouth ity of 17:42: daily. [address] OMEPRAZOLE Yes 40mg Take 40 mg U nivers ORAL 1-11 by mouth ity of 17:42: daily. [address] triamterene Yes 1{tbl} Take 1 Un jerson -hydrochlor 1-11 tablet by ity of othiazid 17:40: mouth [place] (MAXZIDE-25 48 daily. Medica l ) 37.5-25 Branch mg tablet tetrahydroz Yes 1[drp] Place 1 U nivers oline 1-11 Drop in ity of HCl/zinc 17:40: each eye [place] sulf (EYE 48 daily. In Medic al DROPS both eyes [place] ALLERGY RELIEF OPHTHALMIC) cetirizine Yes 10mg Take 10 mg U nivers (ZYRTEC) 10 1-11 by mouth ity of mg tablet 17:40: daily. [address] fluticasone Yes 2{spray Use 2 Un [...] Univers SULFATE 1-11 ity of INHALE 17:40: [address] BACLOFEN 10 Yes 1 tab TID U nivers MG ORAL TAB 1-11 ity of 17:40: [address] HYDROCODONE Yes 1-2 tabs Un jerson -ACETAMINOP 1-11 PRN pain ity of HEN 7.5-500 17:40: [place] MG ORAL TAB [address] [place] [address] Branch triamterene Yes 1{tbl} Take 1 Un jerson -hydrochlor 1-11 tablet by ity of othiazid 17:40: mouth [place] (MAXZIDE-25 48 daily. Medica l ) 37.5-25 Branch mg tablet tetrahydroz Yes 1[drp] Place 1 U nivers oline 1-11 Drop in ity of HCl/zinc 17:40: each eye [place] sulf (EYE 48 daily. In Medic al DROPS both eyes Branch ALLERGY RELIEF OPHTHALMIC) cetirizine Yes 10mg Take 10 mg U nivers (ZYRTEC) 10 1-11 by mouth ity of mg tablet 17:40: daily. [address] fluticasone Yes 2{spray Use 2 Un [...] Univers SULFATE 1-11 ity of INHALE 17:40: [address] BACLOFEN 10 Yes 1 tab TID U nivers MG ORAL TAB 1-11 ity of 17:40: [address] HYDROCODONE Yes 1-2 tabs Un jerson [...] mouth ity of mg tablet 17:40: daily. [address] fluticasone Yes 2{spray Use 2 Un [...] Univers SULFATE 1-11 ity of INHALE 17:40: [address] BACLOFEN 10 Yes 1 tab TID U nivers MG ORAL TAB 1-11 ity of 17:40: [address] HYDROCODONE Yes 1-2 tabs Un jerson -ACETAMINOP 1-11 PRN pain ity of HEN 7.5-500 17:40: [place] MG ORAL TAB [address] [place] [address] triamterene Yes 1{tbl} Take 1 Un jerson -hydrochlor 1-11 tablet by ity of othiazid 17:40: mouth [place] (MAXZIDE-25 48 daily. Medica l ) 37.5-25 Branch mg tablet tetrahydroz Yes 1[drp] Place 1 U nivers oline 1-11 Drop in ity of HCl/zinc 17:40: each eye [place] sulf (EYE 48 daily. In Medic al DROPS both eyes Branch ALLERGY RELIEF OPHTHALMIC) cetirizine Yes 10mg Take 10 mg U nivers (ZYRTEC) 10 1-11 by mouth ity of mg tablet 17:40: daily. [address] fluticasone Yes 2{spray Use 2 Un jerson (FLONASE 1-11 } Sprays in ity of SENSIMIST) 17:40: each [place] 27.5 48 nostril Medical mcg/actuati daily. Branch on nasal spray vitamin C Yes 500mg Take 500 Uni vers with jihan 1-11 mg by ity of hips 17:40: mouth [place] (VITAMIN C) 48 daily. Medica l 1,000 mg Branch tablet ALBUTEROL Yes PRN Univers SULFATE 1-11 ity of INHALE 17:40: [address] BACLOFEN 10 Yes 1 tab TID U nivers MG ORAL TAB 1-11 ity of 17:40: [address] HYDROCODONE Yes 1-2 tabs Un jerson -ACETAMINOP 1-11 PRN pain ity of HEN 7.5-500 17:40: [place] MG ORAL TAB [address] [place] [address] triamterene Yes 1{tbl} Take 1 Un jerson -hydrochlor 1-11 tablet by ity of othiazid 17:40: mouth [place] (MAXZIDE-25 48 daily. Medica l ) 37.5-25 Branch mg tablet tetrahydroz Yes 1[drp] Place 1 U nivers oline 1-11 Drop in ity of HCl/zinc 17:40: each eye [place] sulf (EYE 48 daily. In Medic al DROPS both eyes Branch ALLERGY RELIEF OPHTHALMIC) cetirizine Yes 10mg Take 10 mg U nivers (ZYRTEC) 10 1-11 by mouth ity of mg tablet 17:40: daily. [address] fluticasone Yes 2{spray Use 2 Un [...] Univers SULFATE 1-11 ity of INHALE 17:40: [address] BACLOFEN 10 Yes 1 tab TID U nivers MG ORAL TAB 1-11 ity of 17:40: [address] HYDROCODONE Yes 1-2 tabs Un jerson [...] mouth ity of mg tablet 17:40: daily. [address] fluticasone Yes 2{spray Use 2 Un [...] Univers SULFATE 1-11 ity of INHALE 17:40: [address] BACLOFEN 10 0 Yes 1 tab TID U nivers MG ORAL TAB 1-11 ity of 17:40: [address] HYDROCODONE Yes 1-2 tabs Un jerson [...] mouth ity of mg tablet 17:40: daily. [address] fluticasone Yes 2{spray Use 2 Un [...] Univers SULFATE 1-11 ity of INHALE 17:40: [address] BACLOFEN 10 Yes 1 tab TID U nivers MG ORAL TAB 1-11 ity of 17:40: [address] HYDROCODONE Yes 1-2 tabs Un jerson -ACETAMINOP 1-11 PRN pain ity of HEN 7.5-500 17:40: [place] MG ORAL TAB [address] [place] [address] triamterene Yes 1{tbl} Take 1 Un jerson -hydrochlor 1-11 tablet by ity of othiazid 17:40: mouth [place] (MAXZIDE-25 48 daily. Medica l ) 37.5-25 Branch mg tablet tetrahydroz Yes 1[drp] Place 1 U nivers oline 1-11 Drop in ity of HCl/zinc 17:40: each eye [place] sulf (EYE 48 daily. In Medic al DROPS both eyes [place] ALLERGY RELIEF OPHTHALMIC) cetirizine Yes 10mg Take 10 mg U nivers (ZYRTEC) 10 1-11 by mouth ity of mg tablet 17:40: daily. [address] fluticasone Yes 2{spray Use 2 Un [...] Univers SULFATE 1-11 ity of INHALE 17:40: [address] Branch BACLOFEN 10 Yes 1 tab TID U nivers MG ORAL TAB 1-11 ity of 17:40: [address] Branch HYDROCODONE Yes 1-2 tabs Un jerson -ACETAMINOP 1-11 PRN pain ity of HEN 7.5-500 17:40: [place] MG ORAL TAB 48 Medical Branch triamterene Yes 1{tbl} Take 1 Un jerson -hydrochlor 1-11 tablet by ity of othiazid 17:40: mouth [place] (MAXZIDE-25 48 daily. Medica l ) 37.5-25 Branch mg tablet tetrahydroz Yes 1[drp] Place 1 U nivers oline 1-11 Drop in ity of HCl/zinc 17:40: each eye [place] sulf (EYE 48 daily. In Medic al DROPS both eyes Branch ALLERGY RELIEF OPHTHALMIC) cetirizine Yes 10mg Take 10 mg U nivers (ZYRTEC) 10 1-11 by mouth ity of mg tablet 17:40: daily. [address] fluticasone Yes 2{spray Use 2 Un [...] Univers SULFATE 1-11 ity of INHALE 17:40: [address] Branch BACLOFEN 10 Yes 1 tab TID U nivers MG ORAL TAB 1-11 ity of 17:40: [address] HYDROCODONE Yes 1-2 tabs Un jerson -ACETAMINOP 1-11 PRN pain ity of HEN 7.5-500 17:40: [place] MG ORAL TAB 48 Medical Branch triamterene Yes 1{tbl} Take 1 Un jerson -hydrochlor 1-11 tablet by ity of othiazid 17:40: mouth [place] (MAXZIDE-25 48 daily. Medica l ) 37.5-25 Branch mg tablet tetrahydroz Yes 1[drp] Place 1 U nivers oline 1-11 Drop in ity of HCl/zinc 17:40: each eye [place] sulf (EYE 48 daily. In Medic al DROPS both eyes Branch ALLERGY RELIEF OPHTHALMIC) cetirizine Yes 10mg Take 10 mg U nivers (ZYRTEC) 10 1-11 by mouth ity of mg tablet 17:40: daily. [address] fluticasone Yes 2{spray Use 2 Un [...] Univers SULFATE 1-11 ity of INHALE 17:40: [address] BACLOFEN 10 Yes 1 tab TID U nivers MG ORAL TAB -11 ity of 17:40: [address] HYDROCODONE Yes 1-2 tabs Un jerson -ACETAMINOP 1-11 PRN pain ity of HEN 7.5-500 17:40: [place] MG ORAL TAB 48 [facility] [place] ALEVE ORAL 2020-0 2020- No 2 tabs PRN Univers 06-02 JASMINE ity of 17:40: 00:00 [place] 48 :00 Medical [place] ALEVE ORAL 2020-0 2020- No 2 tabs PRN Univers 06-02 JASMINE ity of 17:40: 00:00 [place] 48 :00 [facility] OMEPRAZOLE Yes 40mg Take 40 mg U nivers ORAL 1-11 by mouth ity of 11:42: daily. [address] OMEPRAZOLE Yes 40mg Take 40 mg U nivers ORAL 1-11 by mouth ity of 11:42: daily. [address] OMEPRAZOLE Yes 40mg Take 40 mg U nivers ORAL 1-11 by mouth ity of 11:42: daily. [address] OMEPRAZOLE 0 Yes 40mg Take 40 mg U nivers ORAL 1-11 by mouth ity of 11:42: daily. [address] OMEPRAZOLE Yes 40mg Take 40 mg U nivers ORAL 1-11 by mouth ity of 11:42: daily. [address] ALBUTEROL 0 Yes PRN Univers SULFATE 1-11 ity of INHALE 11:40: [address] BACLOFEN 10 0 Yes 1 tab TID U nivers MG ORAL TAB 1-11 ity of 11:40: [address] HYDROCODONE Yes 1-2 tabs Un jerson -ACETAMINOP 1-11 PRN pain ity of HEN 7.5-500 11:40: [place] MG ORAL [address] triamterene Yes 1{tbl} Take 1 Un jerson -hydrochlor 1-11 tablet by ity of othiazid 11:40: mouth [place] (MAXZIDE-25 48 daily. Medica l ) 37.5-25 Branch mg tablet tetrahydroz Yes 1[drp] Place 1 U nivers oline 1-11 Drop in ity of HCl/zinc 11:40: each eye [place] sulf (EYE 48 daily. In Medic al DROPS both eyes Branch ALLERGY RELIEF OPHTHALMIC) cetirizine Yes 10mg Take 10 mg U nivers (ZYRTEC) 10 1-11 by mouth ity of mg tablet 11:40: daily. [address] fluticasone Yes 2{spray Use 2 Un [...] Univers SULFATE 1-11 ity of INHALE 11:40: [address] BACLOFEN 10 Yes 1 tab TID U nivers MG ORAL TAB 1-11 ity of 11:40: [address] HYDROCODONE Yes 1-2 tabs Un jerson -ACETAMINOP 1-11 PRN pain ity of HEN 7.5-500 11:40: [place] MG ORAL TAB 48 [facility] Branch triamterene Yes 1{tbl} Take 1 Un [...] mouth ity of mg tablet 11:40: daily. [address] fluticasone Yes 2{spray Use 2 Un [...] Univers SULFATE 1-11 ity of INHALE 11:40: [address] BACLOFEN 10 Yes 1 tab TID U nivers MG ORAL TAB 1-11 ity of 11:40: [address] HYDROCODONE Yes 1-2 tabs Un jerson -ACETAMINOP 1-11 PRN pain ity of HEN 7.5-500 11:40: [place] MG ORAL TAB [address] [place] [address] Branch triamterene Yes 1{tbl} Take 1 Un [...] mouth ity of mg tablet 11:40: daily. [address] fluticasone Yes 2{spray Use 2 Un [...] Univers SULFATE 1-11 ity of INHALE 11:40: [address] BACLOFEN 10 Yes 1 tab TID U nivers MG ORAL TAB 1-11 ity of 11:40: [address] HYDROCODONE Yes 1-2 tabs Un jerson -ACETAMINOP 1-11 PRN pain ity of HEN 7.5-500 11:40: [place] MG ORAL TAB [address] [place] [address] triamterene Yes 1{tbl} Take 1 Un jerson [...] mouth ity of mg tablet 11:40: daily. [address] fluticasone Yes 2{spray Use 2 Un [...] Univers SULFATE 1-11 ity of INHALE 11:40: [address] BACLOFEN 10 Yes 1 tab TID U nivers MG ORAL TAB 1-11 ity of 11:40: [address] HYDROCODONE Yes 1-2 tabs Un jerson -ACETAMINOP 1-11 PRN pain ity of HEN 7.5-500 11:40: [place] MG ORAL TAB [address] [place] [address] Branch triamterene Yes 1{tbl} Take 1 Un jerson -hydrochlor 1-11 tablet by ity of othiazid 11:40: mouth [place] (MAXZIDE-25 48 daily. Medica l ) 37.5-25 Branch mg tablet tetrahydroz Yes 1[drp] Place 1 U nivers oline 1-11 Drop in ity of HCl/zinc 11:40: each eye [place] sulf (EYE 48 daily. In Medic al DROPS both eyes Branch ALLERGY RELIEF OPHTHALMIC) cetirizine Yes 10mg Take 10 mg U nivers (ZYRTEC) 10 1-11 by mouth ity of mg tablet 11:40: daily. [address] fluticasone Yes 2{spray Use 2 Un [...] Univers SULFATE 8-15 ity of INHALE 20:09: [address] BACLOFEN 10 Yes 1 tab TID U nivers MG ORAL TAB 8-15 ity of 20:09: [place] 36 Medical Branch HYDROCODONE 2017-0 Yes 1-2 tabs Un jerson -ACETAMINOP 8-15 PRN pain ity of HEN 7.5-500 20:09: [place] MG ORAL TAB 36 Medical Branch ALEVE ORAL 2017-0 Yes 2 tabs PRN U nivers 8-15 JASMINE ity of 20:09: [place] 36 [facility] triamterene 2016- Yes 1{tbl} [...] blood 2022-05-20 17:39:00 116 mm[Hg] Univer sity [facility] Diastolic blood 2022-05-20 17:39:00 68 [facility]Hg[facility] 2022-05-20 17:39:00 75 /min [facility] Oxygen saturation in 2022-05-20 17:39:00 99 /min [facility] Arterial blood by [facility] Pulse oximetry Branch Body height 2022-05-20 17:25:00 167.6 cm [facility] Body weight 2022-05-20 17:25:00 106.595 kg [facility] BMI 2022-05-20 17:25:00 37.93 kg/m2 [facility] Systolic blood 2020-11-06 14:07:00 124 mm[Hg] Univer sity [facility] Diastolic blood 2020-11-06 14:07:00 81 mm[Hg] Unive rsity [facility] Heart rate 2020-11-06 14:07:00 90 /min [facility] Body height 2020-11-06 14:07:00 167.6 cm [facility] Body weight 2020-11-06 14:07:00 108.863 kg Universi ty [facility] [place] [facility] BMI 2020-11-06 14:07:00 38.74 kg/m2 [facility] [place] [facility] Systolic blood 2020-06-02 17:36:00 136 mm[Hg] Univer sity of pressure [facility] Branch Diastolic blood 2020-06-02 17:36:00 83 mm[Hg] Unive rsity of pressure [facility] Branch Heart rate 2020-06-02 17:36:00 81 /min Universi ty [facility] [place] [facility] Respiratory rate 2020-06-02 17:36:00 18 /min Univ ersity of [place] [facility] Body height 2020-06-02 17:36:00 167.6 cm Universi [facility] [place] [facility] Body weight 2020-06-02 17:36:00 109.135 kg [facility] [place] [facility] BMI 2020-06-02 17:36:00 38.83 kg/m2 Universi ty [facility] Oxygen saturation in 2020-06-02 17:36:00 93 /min [facility] Arterial blood by [facility] Pulse oximetry Branch Procedures Procedure Date / [...] 2020-06-02 17:30:05 Doctor Unassigned, No University [facility] Name Medical Branch Encounters Start End Encounter Admission Attending Care Care Encounter Source Date/Time Date/Time Type Type Clinicians Facility Department ID 2022-08-16 2022-08-16 Outpatient [facility] JESS[facility] [id number] [place] 17:43:52 17:43:52 [id number] Divya Chew 2022-08-11 2022-08-11 Outpatient [facility] [id number] [place] 17:21:25 17:21:25 [id number] F Volga 2022-08-09 2022-08-09 Outpatient [facility] [id number] [place] 10:20:42 10:20:42 [id number] F Volga 2022-06-03 2022-06-03 Orders Doctor CONNORS [id number] Univers 00:00:00 00:00:00 Only Unassigned, ALONSO [id number] ity of [place] [facility] [id number] Kenny as [id number] [address] 2022-05-20 2022-05-20 Office [facility] [id number] Univers 11:15:00 11:30:[address] [facility] [employer] [id number] it [facility] [id number] Kenny as JUAN CARLOS?BLEA [phone] [address] OFFICE [facility] 2022-05-20 2022-05-20 [facility] [id number] Univers 11:15:00 11:15:00 TIKA ity [facility] 2022-05-11 2022-05-11 Telephone [facility] [id number] [facility] 00:00:00 00:00:00 Tika [employer] [id number] it y of [place] 4.2.7.2.686 Kenny as JUAN CARLOS?BLEA [phone] [address] OFFICE [facility] 2022-05-09 2022-05-09 Orders Doctor CONNORS 1.2.840.114 [id number] Univers 00:00:00 00:00:00 Only Unassigned, ALONSO 350.1.13.10 ity of [place] [facility] 4.2.7.2.686 Kenny as [id number] [address] 2021-01-09 2021-01-09 Orders Doctor CONNORS 1.2.840.114 [id number] Univers 00:00:00 00:00:00 Only Unassigned, ALONSO 350.1.13.10 ity of [place] [facility] 4.2.7.2.686 Kenny as [id number] [address] 2020-12-12 2020-12-12 Orders Doctor ODRY 1.2.840.114 [id number] Univers 00:00:00 00:00:00 Only Unassigned, ALONSO 350.1.13.10 ity of [place] [facility] 4.2.7.2.686 Kenny as [id number] [address] 2020-12-01 2020-12-[address] [facility] [facility] [id number] Univers 12:00:00 12:00:00 [place] [facility] 2020-11-12 2020-11-12 Orders Doctor DORY 1.2.840.114 [id number] Univers 00:00:00 00:00:00 Only Unassigned, ALOSNO 350.1.13.10 ity of [place] [facility] 4.2.7.2.686 Kenny as [id number] [address] 2020-11-06 2020-11-06 Office Patrice Willoughby [facility] 1.2.840.114 [id number] Univers 09:06:43 09:21:43 Visit Tika Gomez [facility] 350.1.13.10 ity of Surgical 4.2.7.2.686 Kenny as Specialti [phone] [place] dical es 198 [facility] 2020-11-06 2020-11-[address] [facility] [id number] Univers 09:15:00 09:15:00 TIKA [facility] 2020-10-15 2020-10-[address] [facility] [id number] Univers 11:01:17 23:59:00 SENDIL [facility] [place] [facility] 2020-08-07 2020-08-07 Patient Henrique [facility] 1.2.840.114 [id number] Univers 00:00:00 00:00:00 Outreach Horacio PRIMARY 350.1.13.10 i ty of [place] 4[place]2.7.2.686 [place] [id number] [place] dical [address] [place] 2020-06-02 2020-06-02 Die Maker Светлана, Adc Lab Main [facility] 1.2.8 [id number] Univers 12:31:35 12:46:35 Visit Wellington Moyer 350.1.13.10 ity of [place]2.7.2.686 [place] Profess[place] [phone] [place] dical nal 353 [facility] 2020-06-02 2020-06-02 Office João [facility] 1.2.840.114 [id number] Univers 11:31:59 12:01:59 Visit Wellington Estrella 350.1.13.10 i ty [place]2.7.2.686 [place] [phone] [place] dical nal 220 [facility] 2020-06-02 2020-06-[address] [facility] [id number] Univers 11:30:00 11:30:00 [place] ity [facility] 2020-06-02 2020-06-02 Orders Doctor DORY 1.2.840.114 [id number] Univers 00:00:00 00:00:00 Only Unassigned, ALONSO 350.1.13.10 ity of [place] [facility] 4.2.7.2.686 Kenny as [phone] [address] Results Test Description Test Time Test [...] TESTING PERFORM ED AT [facility] [address] [place] [address] RELIABILITY SPECIALIST: RIVKA LOCKE M.D. CLIA NUMBER [id number] CAP ACCREDITATION N O. [id number] HEMOGLOBIN [id number] 04:59:50 Test Item Value Reference Range Interpretation Comments HEMOGLOBIN A1c (test 5.8 % 4.2-5.6 H AMERIC AN DIABETES code = 70022) ASSOCIATION IDELINES FOR HGB A1C: PREDIABETES/INC REASED [...] ATE TESTING OR LABORATORY C ONSULTATION. LIPID [id number] 03:46:00 Test Item Value Reference Range Interpretation [...] MOREINFORMATION , SEE CLIENT ANNOUNCE MENT AT [email or web address] RATIO LDL/HDL 2.43 RATIO <3.22 (test code = 2238) COMPREHENSIVE METABOLIC [id number] 03:46:00 Test Item Value Reference Range Interpretation Comments GLUCOSE (test code = 76 MG/DL 70-99 2216) BUN (test code = 15 MG/DL -20 2207) CREATININE (test 1.10 MG/DL 0.60-1.30 code = 2214) eGFR (2020 CKD-EPI) 61 ML/MIN/1.73 >60 (test code = 14503) CALC BUN/CREAT (test 14 RATIO 6-28 code = 2235) SODIUM (test code = 143 MEQ/L 490-819 7882) POTASSIUM (test code 4.5 MEQ/L 3.5-5.4 = [...] 5-40 H 2218) CBC W/AUTO DIFF WITH [id number] 03:40:09 Test Item Value Reference Range Interpretation [...] RBCS 0.00 K/UL 0.00-0.11 (test code = 01239)
--- NOTE | 2022-11-08 09:25 | EDPHYS ---
Physician Documentation [facility] Name: Bethany Saeed Age: 52 yrs Sex: Female : 1970 Arrival Date: 11/08/2022 Time: 07:07 Bed 13 Private MD: Jorje Carrizales E ED Physician Olivia Zaragoza HPI: 11/08 07:52 This 52 yrs old Female presents to ER via Ambulatory with complaints of Hives. sp3 07:52 52-year-old female with a history of bronchitis, anxiety, hypothyroidism and also sp3 penicillin allergy now presents to the ED with chief complaint hives since yesterday evening after which she started a new medication written by her eye doctor Mariam which has upon her penicillin allergy. She did not know this was a penicillin class medication when she took it and she is unsure whether her provider who prescribed it new about the allergy. Medications to treat "sinus infection". Currently she has no URI symptoms and no fever. She complains of hives body wide but denies any oral swelling, difficulty breathing, difficulty swallowing, feelings of throat closing, prior anaphylaxis, or any other signs or symptoms on ROS at this time.. Historical: - Allergies: 07:23 PENICILLINS; aa5 07:23 Sulfa (Sulfonamide Antibiotics); aa5 - PMHx: 07:23 Anxiety; Bronchitis; Depression; Hypothyroidism; neuropathy; NIDDM,; psorasis; aa5 - Immunization history:: Adult Immunizations unknown. - Social history:: Smoking status: Patient reports the use of cigarette tobacco products, smokes one pack cigarettes per day. ROS: 07:53 Constitutional: Negative for fever, chills, and weight loss, Eyes: Negative for injury, sp3 pain, redness, and discharge, Neck: Negative for injury, pain, and swelling, Cardiovascular: Negative for chest pain, palpitations, and edema, Respiratory: Negative for shortness of breath, cough, wheezing, and pleuritic chest pain, Abdomen/GI: Negative for abdominal pain, nausea, vomiting, diarrhea, and constipation, Back: Negative for injury and pain, MS/Extremity: Negative for injury and deformity, Psych: Negative for depression, anxiety, suicide ideation, homicidal ideation, and hallucinations, Endocrine: Negative for neck swelling, polydipsia, polyuria, polyphagia, and marked weight changes, Hematologic/Lymphatic: Negative for swollen nodes, abnormal bleeding, and unusual bruising. 07:53 All other systems are negative. Exam: 07:53 Constitutional: This is a well developed, well nourished patient who is awake, alert, sp3 and in no acute distress. Head/Face: Normocephalic, atraumatic. Eyes: Pupils equal round and reactive to light, extra-ocular motions intact. Lids and lashes normal. Conjunctiva and sclera are non-icteric and not injected. Cornea within normal limits. Periorbital areas with no swelling, redness, or edema. Neck: Trachea midline, no thyromegaly or masses palpated, and no cervical lymphadenopathy. Supple, full range of motion without nuchal rigidity, or vertebral point tenderness. No Meningismus. Chest/axilla: Normal chest wall appearance and motion. Nontender with no deformity. No lesions are appreciated. Cardiovascular: Regular rate and rhythm with a normal S1 and S2. No gallops, murmurs, or rubs. Normal PMI, no JVD. No pulse deficits. Respiratory: Lungs have equal breath sounds bilaterally, clear to auscultation and percussion. No rales, rhonchi or wheezes noted. No increased work of breathing, no retractions or nasal flaring. Abdomen/GI: Soft, non-tender, with normal bowel sounds. No distension or tympany. No guarding or rebound. No evidence of tenderness throughout. Back: No spinal tenderness. No costovertebral tenderness. Full range of motion. MS/ Extremity: Pulses equal, no cyanosis. Neurovascular intact. Full, normal range of motion. Neuro: Awake and alert, GCS 15, oriented to person, place, time, and situation. Cranial nerves II-XII grossly intact. Motor strength 5/5 in all extremities. Sensory grossly intact. Cerebellar exam normal. Normal gait. 07:53 Skin: Diffuse hives body wide.. Vital Signs: 07:23 BP 128 / 64; Pulse 86; Resp 18 S; Temp 97.3(TE); Pulse Ox 100% on R/A; Weight 106.59 kg aa5 (R); Height 5 ft. 0 in. (R); 09:36 BP 121 / 67; Pulse 72; Resp 16; Pulse Ox 100% ; bp 07:23 Body Mass Index 45.89 (106.59 kg, 152.4 cm) aa5 MDM: 07:40 Patient medically screened. sp3 07:55 Data reviewed: vital signs, nurses notes. ED course: 52-year-old female with Keflex sp3 induced penicillin allergy with hives body wide without any anaphylaxis or airway involvement. Will treat with normal saline, Solu-Medrol 125 mg IV, and Benadryl 25 mg IV. Once patient is improved, we will discharge her home on prednisone. We will hold on any replacement antibiotics at this time as patient's symptoms on a URI standpoint are very mild.. 09:24 ED course: Hives are now resolved and patient is feeling much better. We will discharge sp3 her home on prednisone p.o. and clear instructions on not taking Keflex.. 11/08 07:41 Order name: IV Saline Lock; Complete Time: 08:01 sp3 Administered Medications: 07:45 Drug: NS 0.9% IV 1000 ml Route: IV; Rate: 1 bolus; Site: right forearm; bp 09:37 Follow up: IV Status: Completed infusion; IV Intake: 1000ml bp 07:45 Drug: diphenhydrAMINE IVP 25 mg Route: IVP; Site: right forearm; bp 09:37 Follow up: Response: No adverse reaction bp 07:45 Drug: MethylPrednisoLONE IVP 125 mg Route: IVP; Site: right forearm; bp 09:37 Follow up: Response: No adverse reaction bp Disposition Summary: 11/08/22 09:24 Discharge Ordered Location: Home sp3 Condition: Stable sp3 Diagnosis - Allergic reaction, acute sp3 Followup: sp3 - With: Private Physician - When: Upon discharge from the Emergency Department - Reason: Continuance of care Discharge Instructions: - Discharge Summary Sheet sp3 - Hives sp3 Forms: - Medication Reconciliation Form sp3 - Thank You Letter sp3 - Antibiotic Education sp3 - Prescription Opioid Use sp3 Prescriptions: - Prednisone 20 mg Oral Tablet - take 2 tablets by ORAL route once daily for 5 days; 10 tablet; Refills: 0, sp3 Product Selection Permitted Signatures: Tsering Ladd RN RN aa5 Russell Vega RN RN bp Olivia Zaragoza MD MD sp3 Corrections: (The following items were deleted from the chart) 07:55 07:53 Skin: 52-year-old female with Keflex induced penicillin allergy with hives body sp3 wide without any anaphylaxis or airway involvement. Will treat with normal saline, Solu-Medrol 125 mg IV, and Benadryl 25 mg IV. Once patient is improved, we will discharge her home on prednisone. We will hold on any replacement antibiotics at this time as patient's symptoms on a URI standpoint are very mild.. sp3
--- NOTE | 2022-11-08 09:25 | ER ---
Nurse's Notes [facility] Name: Bethany Saeed Age: 52 yrs Sex: Female : 1970 Arrival Date: 11/08/2022 Time: 07:07 Bed 13 Private MD: Jorje Carrizales E Diagnosis: Allergic reaction, acute Presentation: 11/08 07:23 Chief complaint: Patient states: hives all over body that began last night, pt reports aa5 she is currently taking cephalexin for a sinus infection. 07:23 Coronavirus screen: At this time, the client does not indicate any symptoms associated aa5 with coronavirus-19. Ebola Screen: Patient denies travel to an Ebola-affected area in the 21 days before illness onset. Anaphylaxis evaluation, no signs or symptoms of anaphylaxis were noted. Initial Sepsis Screen: Does the patient meet any 2 criteria? No. Patient's initial sepsis screen is negative. Does the patient have a suspected source of infection? No. Patient's initial sepsis screen is negative. Risk Assessment: Do you want to hurt yourself or someone else? Patient reports no desire to harm self or others. Onset of symptoms was October 2022. 07:23 Acuity: ROE 3 aa5 07:23 Method Of Arrival: Ambulatory aa5 Triage Assessment: 07:30 General: Appears uncomfortable, Behavior is calm, cooperative, appropriate for age. bp Pain: Denies pain. EENT: No deficits noted. Neuro: No deficits noted. Cardiovascular: No deficits noted. Respiratory: Airway is patent Respiratory effort is even, unlabored. GI: No signs and/or symptoms were reported involving the gastrointestinal system. : No signs and/or symptoms were reported regarding the genitourinary system. Derm: Rash noted that is urticaria, Reports itching. Musculoskeletal: No deficits noted. Historical: - Allergies: 07:23 PENICILLINS; aa5 07:23 Sulfa (Sulfonamide Antibiotics); aa5 - PMHx: 07:23 Anxiety; Bronchitis; Depression; Hypothyroidism; neuropathy; NIDDM,; psorasis; aa5 - Immunization history:: Adult Immunizations unknown. - Social history:: Smoking status: Patient reports the use of cigarette tobacco products, smokes one pack cigarettes per day. Screenin:30 [facility] ED Fall Risk Assessment (Adult) History of falling in the last 3 months, bp including since admission No falls in past 3 months (0 pts). Abuse screen: Denies threats or abuse. Denies injuries from another. Nutritional screening: No deficits noted. Tuberculosis screening: No symptoms or risk factors identified. Assessment: 07:30 General: SEE TRIAGE NOTE. bp 09:36 Reassessment: DC HOME AMBULATORY. bp Vital Signs: 07:23 BP 128 / 64; Pulse 86; Resp 18 S; Temp 97.3(TE); Pulse Ox 100% on R/A; Weight 106.59 kg aa5 (R); Height 5 ft. 0 in. (R); 09:36 BP 121 / 67; Pulse 72; Resp 16; Pulse Ox 100% ; bp 07:23 Body Mass Index 45.89 (106.59 kg, 152.4 cm) aa5 ED Course: 07:10 Patient arrived in ED. im 07:10 Jorje Carrizales MD is Private Physician. im 07:23 Arm band placed on. aa5 07:28 Russell Vega, HIRAL is Primary Nurse. bp 07:30 Triage completed. aa5 07:30 Patient has correct armband on for positive identification. Bed in low position. Call bp light in reach. Side rails up X2. 07:33 Olivia Zaragoza MD is Attending Physician. sp3 07:45 Inserted saline lock: 20 gauge in right forearm, using aseptic technique. Blood bp collected. 09:36 No provider procedures requiring assistance completed. IV discontinued, intact, bp bleeding controlled, No redness/swelling at site. Pressure dressing applied. Administered Medications: 07:45 Drug: NS 0.9% IV 1000 ml Route: IV; Rate: 1 bolus; Site: right forearm; bp 09:37 Follow up: IV Status: Completed infusion; IV Intake: 1000ml bp 07:45 Drug: diphenhydrAMINE IVP 25 mg Route: IVP; Site: right forearm; bp 09:37 Follow up: Response: No adverse reaction bp 07:45 Drug: MethylPrednisoLONE IVP 125 mg Route: IVP; Site: right forearm; bp 09:37 Follow up: Response: No adverse reaction bp Medication: 07:30 VIS not applicable for this client. bp Intake: 09:37 IV: 1000ml; Total: 1000ml. bp Outcome: 09:24 Discharge ordered by . sp3 09:36 Discharged to home ambulatory, with family. bp 09:36 Condition: stable 09:36 Discharge instructions given to patient, Instructed on discharge instructions, follow up and referral plans. medication usage, Demonstrated understanding of instructions, follow-up care, medications, Prescriptions given X 1. 09:37 Patient left the ED. bp Signatures: Tsering Ladd, RN RN aa5 Russell Vega RN RN bp Olivia Zaragoza MD MD sp3 Amairani Hanley
[2022-11-08 09:55] VITALS: TEMP 97.3; O2SAT 100
[2022-11-08 09:57] VITALS: BP 121/67
== END 2022-11-08 09:37 | disposition home or self-care (01) ==
LOC: ER 07:07
DX: L50.9 Urticaria, unspecified (principal); E11.9 Type 2 diabetes mellitus without complications; F17.210 Nicotine dependence, cigarettes, uncomplicated; Z88.0 Allergy status to penicillin; Z88.2 Allergy status to sulfonamides
CPT/HCPCS: 96361; 96375; 96374; 99284; J1200; J2930; J7030

== ENCOUNTER 2023-01-17 13:07 | Emergency (ER) | payer OTHER ==
--- OUTSIDE RECORDS SUMMARY | 2023-01-17 13:12 | XMS REPORT | Continuity of Care Document ---
:1970 Author Organization [facility] t Address [address] [place] [id number] Care Team Providers Name Role Phone Jorje Carrizales Primary Care Physician Doctor Unassigned, [place] Attending Clinician Unavailable Tika Gomez MD Attending [...] nivers pain pain 2-25 ity of 00:00: [place] [facility] Right knee Right knee Disease Active U nivers pain pain 2-25 ity of 00:00: [place] [facility] Low back Low back Disease Active Unive rs pain pain 2-25 ity of 00:00: [place] [facility] Lumbago Lumbago Disease Active Univers 3-13 ity of 00:00: [place] [facility] Thoracic Thoracic Disease Active Overview: Un jerson or or 3-13 Form[place] ity of lumbosacra lumbosacra 00:00: g of this [place] l neuritis l neuritis 00 note Me [...] of (generaliz (generaliz 00:00: g of this [place] ed) ed) 00 note Medical might be [...] of tobacco Cigarette Smoker University of use [facility] Exposure to 2022-05-10 2022-05-20 Not sure [facility] SARS-CoV-2 (event) 00:00:00 11:22:00 [facility] Alcohol intake 2020-11-06 2020-11-06 0 /d University of 00:00:00 00:00:00 [facility] Cigarettes smoked 2015-10-23 2015-10-23 [facility] ity of current (pack per 00:00:00 00:00:00 [facility] ) - Reported Branch Tobacco use and 2015-10-23 2015-10-23 Smokeless Universit y of exposure 00:00:00 00:00:00 tobacco non-user [facility] Sex Assigned At [birth year] Universit y of 00:00:00 00:00:00 [facility] Smoking Status Start Date Stop Date Source Smokes tobacco daily 2015-10-23 00:00:00 [facility] Ordered Filled Start Stop Current Ordering Indication Dosage Frequency Signature Comments Components Source Medication Medication Date Date Medication? Clinician (SIG) Name Name OMEPRAZOLE Yes 40mg Take 40 mg U nivers ORAL 1-11 by mouth ity of 17:42: daily. [address] OMEPRAZOLE Yes 40mg Take 40 mg U nivers ORAL 1-11 by mouth ity of 17:42: daily. [address] OMEPRAZOLE Yes 40mg Take 40 mg U nivers ORAL 1-11 by mouth ity of 17:42: daily. [address] OMEPRAZOLE Yes 40mg Take 40 mg U nivers ORAL 1-11 by mouth ity of 17:42: daily. [address] OMEPRAZOLE Yes 40mg Take 40 mg U nivers ORAL 1-11 by mouth ity of 17:42: daily. [address] OMEPRAZOLE Yes 40mg Take 40 mg U nivers ORAL 1-11 by mouth ity of 17:42: daily. [address] OMEPRAZOLE Yes 40mg Take 40 mg U nivers ORAL 1-11 by mouth ity of 17:42: daily. [address] OMEPRAZOLE Yes 40mg Take 40 mg U nivers ORAL 1-11 by mouth ity of 17:42: daily. [address] OMEPRAZOLE Yes 40mg Take 40 mg U nivers ORAL 1-11 by mouth ity of 17:42: daily. [address] OMEPRAZOLE Yes 40mg Take 40 mg U nivers ORAL 1-11 by mouth ity of 17:42: daily. [address] triamterene Yes 1{tbl} Take 1 Un jerson -hydrochlor 1-11 tablet by ity of othiazid 17:40: mouth [place] (MAXZIDE-25 48 daily. Medica l ) 37.5-25 Branch mg tablet tetrahydroz Yes 1[drp] Place 1 U nivers oline 1-11 Drop in ity of HCl/zinc 17:40: each eye [place] sulf (EYE 48 daily. In Medic al DROPS both eyes [place] ALLERGY RELIEF OPHTHALMIC) cetirizine Yes 10mg Take 10 mg U nivers (ZYRTEC) 10 1-11 by mouth ity of mg tablet 17:40: daily. [address] fluticasone Yes 2{spray Use 2 Un [...] Univers SULFATE 1-11 ity of INHALE 17:40: [address] BACLOFEN 10 Yes 1 tab TID U nivers MG ORAL TAB 1-11 ity of 17:40: [address] HYDROCODONE Yes 1-2 tabs Un jerson -ACETAMINOP 1-11 PRN pain ity of HEN 7.5-500 17:40: [place] MG ORAL TAB [address] [place] [address] Branch triamterene Yes 1{tbl} Take 1 Un jerson -hydrochlor 1-11 tablet by ity of othiazid 17:40: mouth [place] (MAXZIDE-25 48 daily. Medica l ) 37.5-25 Branch mg tablet tetrahydroz Yes 1[drp] Place 1 U nivers oline 1-11 Drop in ity of HCl/zinc 17:40: each eye [place] sulf (EYE 48 daily. In Medic al DROPS both eyes Branch ALLERGY RELIEF OPHTHALMIC) cetirizine Yes 10mg Take 10 mg U nivers (ZYRTEC) 10 1-11 by mouth ity of mg tablet 17:40: daily. [address] fluticasone Yes 2{spray Use 2 Un [...] Univers SULFATE 1-11 ity of INHALE 17:40: [address] BACLOFEN 10 Yes 1 tab TID U nivers MG ORAL TAB 1-11 ity of 17:40: [address] HYDROCODONE Yes 1-2 tabs Un jerson [...] mouth ity of mg tablet 17:40: daily. [address] fluticasone Yes 2{spray Use 2 Un [...] Univers SULFATE 1-11 ity of INHALE 17:40: [address] BACLOFEN 10 Yes 1 tab TID U nivers MG ORAL TAB 1-11 ity of 17:40: [address] HYDROCODONE Yes 1-2 tabs Un jerson -ACETAMINOP 1-11 PRN pain ity of HEN 7.5-500 17:40: [place] MG ORAL TAB [address] [place] [address] triamterene Yes 1{tbl} Take 1 Un jerson -hydrochlor 1-11 tablet by ity of othiazid 17:40: mouth [place] (MAXZIDE-25 48 daily. Medica l ) 37.5-25 Branch mg tablet tetrahydroz Yes 1[drp] Place 1 U nivers oline 1-11 Drop in ity of HCl/zinc 17:40: each eye [place] sulf (EYE 48 daily. In Medic al DROPS both eyes Branch ALLERGY RELIEF OPHTHALMIC) cetirizine Yes 10mg Take 10 mg U nivers (ZYRTEC) 10 1-11 by mouth ity of mg tablet 17:40: daily. [address] fluticasone Yes 2{spray Use 2 Un jersno (FLONASE 1-11 } Sprays in ity of SENSIMIST) 17:40: each [place] 27.5 48 nostril Medical mcg/actuati daily. Branch on nasal spray vitamin C Yes 500mg Take 500 Uni vers with jihan 1-11 mg by ity of hips 17:40: mouth [place] (VITAMIN C) 48 daily. Medica l 1,000 mg Branch tablet ALBUTEROL Yes PRN Univers SULFATE 1-11 ity of INHALE 17:40: [address] BACLOFEN 10 Yes 1 tab TID U nivers MG ORAL TAB 1-11 ity of 17:40: [address] HYDROCODONE Yes 1-2 tabs Un jerson -ACETAMINOP 1-11 PRN pain ity of HEN 7.5-500 17:40: [place] MG ORAL TAB [address] [place] [address] triamterene Yes 1{tbl} Take 1 Un jerson -hydrochlor 1-11 tablet by ity of othiazid 17:40: mouth [place] (MAXZIDE-25 48 daily. Medica l ) 37.5-25 Branch mg tablet tetrahydroz Yes 1[drp] Place 1 U nivers oline 1-11 Drop in ity of HCl/zinc 17:40: each eye [place] sulf (EYE 48 daily. In Medic al DROPS both eyes Branch ALLERGY RELIEF OPHTHALMIC) cetirizine Yes 10mg Take 10 mg U nivers (ZYRTEC) 10 1-11 by mouth ity of mg tablet 17:40: daily. [address] fluticasone Yes 2{spray Use 2 Un [...] Univers SULFATE 1-11 ity of INHALE 17:40: [address] BACLOFEN 10 Yes 1 tab TID U nivers MG ORAL TAB 1-11 ity of 17:40: [address] HYDROCODONE Yes 1-2 tabs Un jerson [...] mouth ity of mg tablet 17:40: daily. [address] fluticasone Yes 2{spray Use 2 Un [...] Univers SULFATE 1-11 ity of INHALE 17:40: [address] BACLOFEN 10 0 Yes 1 tab TID U nivers MG ORAL TAB 1-11 ity of 17:40: [address] HYDROCODONE Yes 1-2 tabs Un jerson [...] mouth ity of mg tablet 17:40: daily. [address] fluticasone Yes 2{spray Use 2 Un [...] Univers SULFATE 1-11 ity of INHALE 17:40: [address] BACLOFEN 10 Yes 1 tab TID U nivers MG ORAL TAB 1-11 ity of 17:40: [address] HYDROCODONE Yes 1-2 tabs Un jerson -ACETAMINOP 1-11 PRN pain ity of HEN 7.5-500 17:40: [place] MG ORAL TAB [address] [place] [address] triamterene Yes 1{tbl} Take 1 Un jerson -hydrochlor 1-11 tablet by ity of othiazid 17:40: mouth [place] (MAXZIDE-25 48 daily. Medica l ) 37.5-25 Branch mg tablet tetrahydroz Yes 1[drp] Place 1 U nivers oline 1-11 Drop in ity of HCl/zinc 17:40: each eye [place] sulf (EYE 48 daily. In Medic al DROPS both eyes [place] ALLERGY RELIEF OPHTHALMIC) cetirizine Yes 10mg Take 10 mg U nivers (ZYRTEC) 10 1-11 by mouth ity of mg tablet 17:40: daily. [address] fluticasone Yes 2{spray Use 2 Un [...] Univers SULFATE 1-11 ity of INHALE 17:40: [address] Branch BACLOFEN 10 Yes 1 tab TID U nivers MG ORAL TAB 1-11 ity of 17:40: [address] Branch HYDROCODONE Yes 1-2 tabs Un jerson -ACETAMINOP 1-11 PRN pain ity of HEN 7.5-500 17:40: [place] MG ORAL TAB 48 Medical Branch triamterene Yes 1{tbl} Take 1 Un jerson -hydrochlor 1-11 tablet by ity of othiazid 17:40: mouth [place] (MAXZIDE-25 48 daily. Medica l ) 37.5-25 Branch mg tablet tetrahydroz Yes 1[drp] Place 1 U nivers oline 1-11 Drop in ity of HCl/zinc 17:40: each eye [place] sulf (EYE 48 daily. In Medic al DROPS both eyes Branch ALLERGY RELIEF OPHTHALMIC) cetirizine Yes 10mg Take 10 mg U nivers (ZYRTEC) 10 1-11 by mouth ity of mg tablet 17:40: daily. [address] fluticasone Yes 2{spray Use 2 Un [...] Univers SULFATE 1-11 ity of INHALE 17:40: [address] Branch BACLOFEN 10 Yes 1 tab TID U nivers MG ORAL TAB 1-11 ity of 17:40: [address] HYDROCODONE Yes 1-2 tabs Un jerson -ACETAMINOP 1-11 PRN pain ity of HEN 7.5-500 17:40: [place] MG ORAL TAB 48 Medical Branch triamterene Yes 1{tbl} Take 1 Un jerson -hydrochlor 1-11 tablet by ity of othiazid 17:40: mouth [place] (MAXZIDE-25 48 daily. Medica l ) 37.5-25 Branch mg tablet tetrahydroz Yes 1[drp] Place 1 U nivers oline 1-11 Drop in ity of HCl/zinc 17:40: each eye [place] sulf (EYE 48 daily. In Medic al DROPS both eyes Branch ALLERGY RELIEF OPHTHALMIC) cetirizine Yes 10mg Take 10 mg U nivers (ZYRTEC) 10 1-11 by mouth ity of mg tablet 17:40: daily. [address] fluticasone Yes 2{spray Use 2 Un [...] Univers SULFATE 1-11 ity of INHALE 17:40: [address] BACLOFEN 10 Yes 1 tab TID U nivers MG ORAL TAB -11 ity of 17:40: [address] HYDROCODONE Yes 1-2 tabs Un jerson -ACETAMINOP 1-11 PRN pain ity of HEN 7.5-500 17:40: [place] MG ORAL TAB 48 [facility] [place] ALEVE ORAL 2020-0 2020- No 2 tabs PRN Univers 06-02 JASMINE ity of 17:40: 00:00 [place] 48 :00 Medical [place] ALEVE ORAL 2020-0 2020- No 2 tabs PRN Univers 06-02 JASMINE ity of 17:40: 00:00 [place] 48 :00 [facility] OMEPRAZOLE Yes 40mg Take 40 mg U nivers ORAL 1-11 by mouth ity of 11:42: daily. [address] OMEPRAZOLE Yes 40mg Take 40 mg U nivers ORAL 1-11 by mouth ity of 11:42: daily. [address] OMEPRAZOLE Yes 40mg Take 40 mg U nivers ORAL 1-11 by mouth ity of 11:42: daily. [address] OMEPRAZOLE 0 Yes 40mg Take 40 mg U nivers ORAL 1-11 by mouth ity of 11:42: daily. [address] OMEPRAZOLE Yes 40mg Take 40 mg U nivers ORAL 1-11 by mouth ity of 11:42: daily. [address] ALBUTEROL 0 Yes PRN Univers SULFATE 1-11 ity of INHALE 11:40: [address] BACLOFEN 10 0 Yes 1 tab TID U nivers MG ORAL TAB 1-11 ity of 11:40: [address] HYDROCODONE Yes 1-2 tabs Un jerson -ACETAMINOP 1-11 PRN pain ity of HEN 7.5-500 11:40: [place] MG ORAL [address] triamterene Yes 1{tbl} Take 1 Un jerson -hydrochlor 1-11 tablet by ity of othiazid 11:40: mouth [place] (MAXZIDE-25 48 daily. Medica l ) 37.5-25 Branch mg tablet tetrahydroz Yes 1[drp] Place 1 U nivers oline 1-11 Drop in ity of HCl/zinc 11:40: each eye [place] sulf (EYE 48 daily. In Medic al DROPS both eyes Branch ALLERGY RELIEF OPHTHALMIC) cetirizine Yes 10mg Take 10 mg U nivers (ZYRTEC) 10 1-11 by mouth ity of mg tablet 11:40: daily. [address] fluticasone Yes 2{spray Use 2 Un [...] Univers SULFATE 1-11 ity of INHALE 11:40: [address] BACLOFEN 10 Yes 1 tab TID U nivers MG ORAL TAB 1-11 ity of 11:40: [address] HYDROCODONE Yes 1-2 tabs Un jerson -ACETAMINOP 1-11 PRN pain ity of HEN 7.5-500 11:40: [place] MG ORAL TAB 48 [facility] Branch triamterene Yes 1{tbl} Take 1 Un [...] mouth ity of mg tablet 11:40: daily. [address] fluticasone Yes 2{spray Use 2 Un [...] Univers SULFATE 1-11 ity of INHALE 11:40: [address] BACLOFEN 10 Yes 1 tab TID U nivers MG ORAL TAB 1-11 ity of 11:40: [address] HYDROCODONE Yes 1-2 tabs Un jerson -ACETAMINOP 1-11 PRN pain ity of HEN 7.5-500 11:40: [place] MG ORAL TAB [address] [place] [address] Branch triamterene Yes 1{tbl} Take 1 Un [...] mouth ity of mg tablet 11:40: daily. [address] fluticasone Yes 2{spray Use 2 Un [...] Univers SULFATE 1-11 ity of INHALE 11:40: [address] BACLOFEN 10 Yes 1 tab TID U nivers MG ORAL TAB 1-11 ity of 11:40: [address] HYDROCODONE Yes 1-2 tabs Un jerson -ACETAMINOP 1-11 PRN pain ity of HEN 7.5-500 11:40: [place] MG ORAL TAB [address] [place] [address] triamterene Yes 1{tbl} Take 1 Un jerson [...] mouth ity of mg tablet 11:40: daily. [address] fluticasone Yes 2{spray Use 2 Un [...] Univers SULFATE 1-11 ity of INHALE 11:40: [address] BACLOFEN 10 Yes 1 tab TID U nivers MG ORAL TAB 1-11 ity of 11:40: [address] HYDROCODONE Yes 1-2 tabs Un jerson -ACETAMINOP 1-11 PRN pain ity of HEN 7.5-500 11:40: [place] MG ORAL TAB [address] [place] [address] Branch triamterene Yes 1{tbl} Take 1 Un jerson -hydrochlor 1-11 tablet by ity of othiazid 11:40: mouth [place] (MAXZIDE-25 48 daily. Medica l ) 37.5-25 Branch mg tablet tetrahydroz Yes 1[drp] Place 1 U nivers oline 1-11 Drop in ity of HCl/zinc 11:40: each eye [place] sulf (EYE 48 daily. In Medic al DROPS both eyes Branch ALLERGY RELIEF OPHTHALMIC) cetirizine Yes 10mg Take 10 mg U nivers (ZYRTEC) 10 1-11 by mouth ity of mg tablet 11:40: daily. [address] fluticasone Yes 2{spray Use 2 Un [...] Univers SULFATE 8-15 ity of INHALE 20:09: [address] BACLOFEN 10 Yes 1 tab TID U nivers MG ORAL TAB 8-15 ity of 20:09: [place] 36 Medical Branch HYDROCODONE 2017-0 Yes 1-2 tabs Un jerson -ACETAMINOP 8-15 PRN pain ity of HEN 7.5-500 20:09: [place] MG ORAL TAB 36 Medical Branch ALEVE ORAL 2017-0 Yes 2 tabs PRN U nivers 8-15 JASMINE ity of 20:09: [place] 36 [facility] triamterene 2016- Yes 1{tbl} [...] blood 2022-05-20 17:39:00 116 mm[Hg] Univer sity [facility] Diastolic blood 2022-05-20 17:39:00 68 mm[Hg] [facility] rate 2022-05-20 17:39:00 75 /min [facility] Oxygen saturation in 2022-05-20 17:39:00 99 /min [facility] Arterial blood by [facility] Pulse oximetry Branch Body height 2022-05-20 17:25:00 167.6 cm [facility] Body weight 2022-05-20 17:25:00 106.595 kg [facility] BMI 2022-05-20 17:25:00 37.93 kg/m2 [facility] Systolic blood 2020-11-06 14:07:00 124 mm[Hg] Univer sity [facility] Diastolic blood 2020-11-06 14:07:00 81 mm[Hg] Unive rsity [facility] Heart rate 2020-11-06 14:07:00 90 /min [facility] Body height 2020-11-06 14:07:00 167.6 cm [facility] Body weight 2020-11-06 14:07:00 108.863 kg Universi ty [facility] [place] [facility] BMI 2020-11-06 14:07:00 38.74 kg/m2 Universi ty [facility] [place] [facility] Systolic blood 2020-06-02 17:36:00 136 mm[Hg] Univer sity of pressure [facility] Branch Diastolic blood 2020-06-02 17:36:00 83 mm[Hg] Unive rsity of pressure [facility] Branch Heart rate 2020-06-02 17:36:00 81 /min Universi ty [facility] [place] [facility] Respiratory rate 2020-06-02 17:36:00 18 /min Univ ersity of [place] [facility] Body height 2020-06-02 17:36:00 167.6 cm Universi ty [facility] [place] [facility] Body weight 2020-06-02 17:36:00 109.135 kg [facility] [place] [facility] BMI 2020-06-02 17:36:00 38.83 kg/m2 Universi ty [facility] [place] Oxygen saturation in 2020-06-02 17:36:00 93 /min [facility] Arterial blood by [facility] Pulse oximetry Branch Procedures Procedure Date [...] BENEFITS 2020-06-02 17:30:05 Doctor Unassigned, No [facility] [place] [facility] Name Medical Branch Encounters Start End Encounter Admission Attending Care Care Encounter Source Date/Time Date/Time Type Type Clinicians Facility Department ID 2022-08-16 2022-08-16 Outpatient SFA JESSICA [id number] Santy 17:43:52 17:43:52 [id number] Divya Chew 2022-08-11 2022-08-11 Outpatient [facility] [id number] Santy 17:21:25 17:21:25 [id number] [place] 2022-08-09 2022-08-09 Outpatient [facility] [id number] Santy 10:20:42 10:20:42 [id number] [place] 2022-06-03 2022-06-03 Orders Doctor CONNORS [id number] [id number] Univers 00:00:00 00:00:00 Only Unassigned, ALONSO [id number] ity of [place] [facility] [id number] Kenny as [phone] [address] 2022-05-20 2022-05-20 Office [facility] [id number] Univers 11:15:00 11:30:[address] [facility] Invisible Sentinel [id number] it y [facility] [id number] Kenny as JUAN CARLOS?BLEA [phone] [address] OFFICE [facility] 2022-05-20 2022-05-20 [facility] [id number] Univers 11:15:00 11:15:00 TIKA ity [facility] [place] 2022-05-11 2022-05-11 Telephone [facility] [id number] [facility] 00:00:00 00:00:00 Tika [place] [place] [id number] it y of [place] [id number] Kenny as JUAN CARLOS?BLEA [id number] [address] OFFICE [facility] 2022-05-09 2022-05-09 Orders Doctor CONNORS 1.2.840.114 [id number] Univers 00:00:00 00:00:00 Only Unassigned, ALONSO [id number] ity of [place] [facility] 4.2.7.2.686 Kenny as [id number] [address] 2021-01-09 2021-01-09 Orders Doctor CONNORS 1.2.840.114 [id number] Univers 00:00:00 00:00:00 Only Unassigned, ALONSO [id number] ity of [place] [facility] 4.2.7.2.686 Kenny as [phone] [address] 2020-12-12 2020-12-12 Orders Doctor DORY 1.2.840.114 [id number] Univers 00:00:00 00:00:00 Only Unassigned, ALONSO [id number] ity of [place] [facility] 4.2.7.2.686 Kenny as [phone] [address] 2020-12-01 2020-12-01 Outpatient R JOÃO [facility] [id number] Univers 12:00:00 12:00:00 [place] [facility] 2020-11-12 2020-11-12 Orders Doctor DORY 1.2.840.114 [id number] Univers 00:00:00 00:00:00 Only Unassigned, ALONSO 350.1.13.10 ity of [place] [facility] 4.2.7.2.686 Kenny as [phone] [address] 2020-11-06 2020-11-06 Office Patrice Willoughby [facility] 1.2.840.114 [id number] Univers 09:06:43 09:21:43 Visit Tika [facility] [id number] ity of Surgical [id number] Kenny as Specialti [phone] Nv dical es 198 [facility] 2020-11-06 2020-11-06 Outpatient R JASON [facility] [id number] Univers 09:15:00 09:15:00 [facility] 2020-10-15 2020-10-15 Outpatient Yaneth TRONCOSO [facility] [id number] Univers 11:01:17 23:59:00 [facility] 2020-08-07 2020-08-07 Patient Henrique [facility] 1.2.840.114 [id number] Univers 00:00:00 00:00:00 Outreach Horacio PRIMARY [id number] i ty of [place] 4[place]2.7.2.686 [place] [phone] Nv dical [address] [place] 2020-06-02 2020-06-02 Sealer Dry Cell Светлана, Adc Lab Main [facility] 1.2.8 [id number] Univers 12:31:35 12:46:35 Visit [place] Moyer [id number] ity [place]2.7.2.686 [place] Profess[place] [phone] Nv dical nal [address] [facility] 2020-06-02 2020-06-02 Office João [facility] 1.2.840.114 [id number] Univers 11:31:59 12:01:59 Visit [place] Estrella 350.1.13.10 i ty [place]2.7.2.686 [place] Profess[place] [phone] Nv dical nal [address] [facility] 2020-06-02 2020-06-02 Outpatient R JOÃO [facility] [id number] Univers 11:30:00 11:30:00 [place] ity [facility] [place] 2020-06-02 2020-06-02 Orders Doctor DORY 1.2.840.114 [id number] Univers 00:00:00 00:00:00 Only Unassigned, ALONSO 350.1.13.10 ity of [place] [facility] 4.2.7.2.686 Kenny as [phone] [address] Results Test Description Test Time Test [...] ED AT CLINICAL PATHOLOGY LABOR [facility] [address] [place] [address] [id number] DISPATCH MANAGER: RIVKA LOCKE M.D. CLIA NUMBER [id number] CAP ACCREDITATION N O. [id number] HEMOGLOBIN [id number] 04:59:50 Test Item Value Reference Range Interpretation Comments HEMOGLOBIN A1c (test 5.8 % 4.2-5.6 H AMERIC AN DIABETES code = 28205) ASSOCIATION IDELINES FOR HGB A1C: PREDIABETES/INC REASED [...] ATE TESTING OR LABORATORY C ONSULTATION. LIPID [id number] 03:46:00 Test Item Value Reference Range Interpretation [...] MOREINFORMATION , SEE CLIENT ANNOUNCE MENT AT [email or web address] [email or web address] RATIO LDL/HDL 2.43 RATIO <3.22 (test code = 2238) COMPREHENSIVE METABOLIC [id number] 03:46:00 Test Item Value Reference Range Interpretation Comments GLUCOSE (test code = 76 MG/DL 70-99 2216) BUN (test code = 15 MG/DL -20 2207) CREATININE (test 1.10 MG/DL 0.60-1.30 code = 2214) eGFR (2020 CKD-EPI) 61 ML/MIN/1.73 >60 (test code = 47749) CALC BUN/CREAT (test 14 RATIO 6-28 code = 2235) SODIUM (test code = 143 MEQ/L 978-002 7037) POTASSIUM (test code 4.5 MEQ/L 3.5-5.4 = [...] 5-40 H 2218) CBC W/AUTO DIFF WITH [id number] 03:40:09 Test Item Value Reference Range Interpretation [...] RBCS 0.00 K/UL 0.00-0.11 (test code = 57793)
[2023-01-17] MEDS ORDERED: KETOROLAC 30 MG/ML INJ ONE (14:01)
--- NOTE | 2023-01-17 15:14 | RAD REPORT ---
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 No acute fracture or d islocation seen.
[2023-01-17 16:25] VITALS: TEMP 97.7
[2023-01-17 16:30] VITALS: BP 116/68; O2SAT 98
--- NOTE | 2023-01-18 16:17 | ER ---
Nurse's Notes [facility] Name: Bethany Saeed Age: 52 yrs Sex: Female : 1970 Arrival Date: 01/17/2023 Time: 13:07 Bed 12 Private MD: Diagnosis: Pain in left shoulder Presentation: 01/17 13:25 Chief complaint: Patient states: "For the last 2 months, my left shoulder has been mb9 hurting. I remember I went to shut a light off and I felt a pop in my left shoulder. The past 2 months, the pain has gotten worse". Coronavirus screen: Vaccine status: Patient reports receiving the 2nd dose of the covid vaccine. Ebola Screen: No symptoms or risks identified at this time. Initial Sepsis Screen: Does the patient meet any 2 criteria? No. Patient's initial sepsis screen is negative. Does the patient have a suspected source of infection? No. Patient's initial sepsis screen is negative. Risk Assessment: Do you want to hurt yourself or someone else? Patient reports no desire to harm self or others. Onset of symptoms was January 17, 2023. 13:25 Method Of Arrival: Ambulatory mb9 13:25 Acuity: ROE 4 mb9 Triage Assessment: 13:28 General: Appears in no apparent distress. Behavior is calm, cooperative. Pain: mb9 Complains of pain in left shoulder Pain currently is 7 out of 10 on a pain scale. Quality of pain is described as throbbing, Pain began 2 months ago Is continuous. Neuro: Ow[place]u Agitation-Sedation Scale (RASS): 0 - Alert and Calm Level of Consciousness is awake, alert, obeys commands, Oriented to person, place, time, situation, Appropriate for age. Respiratory: Airway is patent Respiratory effort is even, unlabored, Respiratory pattern is regular, symmetrical. Derm: Skin is pink, warm \\T\\ dry. Musculoskeletal: Range of motion: limited in left shoulder. [employer]: 14:01 LMP N/A - Post-menopause me1 Historical: - Allergies: 13:27 PENICILLINS; mb9 13:27 Sulfa (Sulfonamide Antibiotics); mb9 - PMHx: 13:27 Anxiety; psorasis; NIDDM,; neuropathy; Hypothyroidism; Depression; Bronchitis; mb9 - PSHx: 13:27 right knee; left ankle; mb9 - Immunization history:: Adult Immunizations up to date. - Social history:: Smoking status: Patient reports the use of cigarette tobacco products, smokes one pack cigarettes per day. Screenin:[address] [facility] ED Fall Risk Assessment (Adult) History of falling in the last 3 months, me1 including since admission No falls in past 3 months (0 pts) Confusion or Disorientation No (0 pts) Intoxicated or Sedated No (0 pts) Impaired Gait No (0 pts) Mobility Assist Device Used No (0 pt) Altered Elimination No (0 pt) Score/Fall Risk Level 0 - 2 = Low Risk. Abuse screen: Denies threats or abuse. Nutritional screening: No deficits noted. Tuberculosis screening: No symptoms or risk factors identified. Assessment: 13:56 General: Appears uncomfortable, obese, Behavior is calm, cooperative, appropriate for me1 age. General: Reports pulling pain to left shoulder for the past 2 months. Reports that it has gradually worsened over this time period. Last night reports pain was 9/10 and today it is 7/10. Pain: Complains of pain in left arm Pain currently is 7 out of 10 on a pain scale. Quality of pain is described as pulling Pain began 2 months ago Is continuous. Neuro: Level of Consciousness is awake, alert, obeys commands, Oriented to person, place, time, situation, Appropriate for age. Cardiovascular: Capillary refill < 3 seconds Patient's skin is warm and dry. Respiratory: Airway is patent Respiratory effort is even, unlabored, Respiratory pattern is regular, symmetrical. Musculoskeletal: Reports pain in left shoulder Denies numbness in, left arm and left shoulder. Vital Signs: 13:25 BP 116 / 84; Pulse 90; Resp 18; Temp 97.7; Pulse Ox 100% on R/A; Weight 104.33 kg; mb9 Height 5 ft. 4 in. ; Pain 7/10; 16:06 BP 116 / 68; Pulse 82; Resp 18; Pulse Ox 98% on R/A; me1 13:25 Body Mass Index 39.48 (104.33 kg, 162.56 cm) mb9 13:25 Pain Scale: Adult mb9 ED Course: 13:24 Patient arrived in ED. mb9 13:27 Triage completed. mb9 13:28 Arm band placed on. mb9 13:35 Rosa Elena Lopez is Attending Physician. ci 13:48 Allie Giraldo, RN is Primary Nurse. me1 13:56 Patient has correct armband on for positive identification. Bed in low position. Call me1 light in reach. Side rails up X 1. Provided Education on: POC. Verbalized understanding.. 13:56 No provider procedures requiring assistance completed. Patient did not have IV access me1 during this emergency room visit. 15:05 Shoulder Left 2 View In Process Unspecified. EDMS Administered Medications: 13:55 Drug: Ketorolac IM 30 mg Route: IM; Site: left deltoid; me1 14:48 Follow up: Response: No adverse reaction; Pain is decreased me1 Medication: 13:56 VIS not applicable for this client. me1 Outcome: 15:56 Discharge ordered by MD. ci 16:16 Discharged to home ambulatory, with significant other. me1 16:16 Condition: stable 16:16 Discharge instructions given to patient, Instructed on discharge instructions, follow up and referral plans. Demonstrated understanding of instructions, follow-up care. 16:17 Patient left the ED. me1 Signatures: Dispatcher [employer] EDMS Dori Munoz RN RN mb9 Allie Giraldo, RN RN me1 Rosa Elena Lopez ci
--- NOTE | 2023-01-18 16:17 | EDPHYS ---
Physician Documentation [facility] Name: Bethany Saeed Age: 52 yrs Sex: Female : 1970 Arrival Date: 01/17/2023 Time: 13:07 Bed 12 Private MD: ED Physician Rosa Elena Lopez HPI: 01/17 13:37 This 52 yrs old Female presents to ER via Ambulatory with complaints of left shoulder ci pain. 13:37 Shoulder pain is in the anterior shoulder, radiates down to left arm. Endorses numbness ci that is unchanged. No falls or trauma. Symptoms started 2 months ago after she pulled a light bulb. Has taken ibuprofen which seems to help, last dose was last night. . Onset: The symptoms/episode began/occurred 2 month(s) ago. Severity of symptoms: Pain is currently a 7 / 10. The patient has experienced a previous episode, R knee pain, tore a cartilage and saw orthopedic surgeon. [employer]ANE: 14:01 LMP N/A - Post-menopause me1 Historical: - Allergies: 13:27 PENICILLINS; mb9 13:27 Sulfa (Sulfonamide Antibiotics); mb9 - PMHx: 13:27 Anxiety; psorasis; NIDDM,; neuropathy; Hypothyroidism; Depression; Bronchitis; mb9 - PSHx: 13:27 right knee; left ankle; mb9 - Immunization history:: Adult Immunizations up to date. - Social history:: Smoking status: Patient reports the use of cigarette tobacco products, smokes one pack cigarettes per day. ROS: 13:37 Constitutional: Negative for fever, chills, and weight loss, Eyes: Negative for injury, ci pain, redness, and discharge, Cardiovascular: Negative for chest pain, palpitations, and edema, Abdomen/GI: Negative for abdominal pain, nausea, vomiting, diarrhea, and constipation, MS/Extremity: Negative for injury and deformity, +Ve left shoulder pain Skin: Negative for injury, rash, and discoloration. Exam: 13:37 Constitutional: This is a well developed, well nourished patient who is awake, alert, ci and in no acute distress. Head/Face: Normocephalic, atraumatic. Eyes: Pupils equal round and reactive to light, extra-ocular motions intact. Lids and lashes normal. Conjunctiva and sclera are non-icteric and not injected. Cornea within normal limits. Periorbital areas with no swelling, redness, or edema. ENT: Nares patent. No nasal discharge, no septal abnormalities noted. Tympanic membranes are normal and external auditory canals are clear. Oropharynx with no redness, swelling, or masses, exudates, or evidence of obstruction, uvula midline. Mucous membranes moist. Neck: Trachea midline, no thyromegaly or masses palpated, and no cervical lymphadenopathy. Supple, full range of motion without nuchal rigidity, or vertebral point tenderness. No Meningismus. Chest/axilla: Normal chest wall appearance and motion. Nontender with no deformity. No lesions are appreciated. Cardiovascular: Regular rate and rhythm with a normal S1 and S2. No gallops, murmurs, or rubs. no JVD. No pulse deficits. Respiratory: Lungs have equal breath sounds bilaterally, clear to auscultation and percussion. No rales, rhonchi or wheezes noted. No increased work of breathing, no retractions or nasal flaring. Abdomen/GI: Soft, non-tender, with normal bowel sounds. No distension or tympany. No guarding or rebound. No evidence of tenderness throughout. Back: No spinal tenderness. No costovertebral tenderness. Full range of motion. Skin: Warm, dry with normal turgor. Normal color with no rashes, no lesions, and no evidence of cellulitis. MS/ Extremity: Pulses equal, no cyanosis. Neurovascular intact. Left shoulder restructed range of motion. Neuro: Awake and alert, GCS 15, oriented to person, place, time, and situation. Cranial nerves II-XII grossly intact. Motor strength 5/5 in all extremities. Sensory grossly intact. Cerebellar exam normal. Normal gait. Psych: Awake, alert, with orientation to person, place and time. Behavior, mood, and affect are within normal limits. Vital Signs: 13:25 BP 116 / 84; Pulse 90; Resp 18; Temp 97.7; Pulse Ox 100% on R/A; Weight 104.33 kg; mb9 Height 5 ft. 4 in. ; Pain 7/10; 16:06 BP 116 / 68; Pulse 82; Resp 18; Pulse Ox 98% on R/A; me1 13:25 Body Mass Index 39.48 (104.33 kg, 162.56 cm) mb9 13:25 Pain Scale: Adult mb9 MDM: 13:36 Patient medically screened. ci 13:37 Differential Diagnosis Fracture, dislocation, sprain/strain, arthritis. ci 13:43 Data reviewed: vital signs, nurses notes. I considered the following discharge ci prescriptions or medication management in the emergency department I discussed and recommended Over The Counter medications, Medications were administered in the Emergency Department. See MAR. Independent interpretation of the following test(s) in the Emergency Department. Care significantly affected by the following chronic conditions: Diabetes, Hypothyroidism. 01/17 14:14 Order name: Shoulder Left 2 View; Complete Time: 15:52 EDMS 01/17 15:54 Interpretation: No fracture. 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 No acute fracture or dislocation seen. Administered Medications: 13:55 Drug: Ketorolac IM 30 mg Route: IM; Site: left deltoid; [facility] [place] 14:48 Follow up: Response: No adverse reaction; Pain is decreased me1 Disposition Summary: 01/17/23 15:56 Discharge Ordered Location: Home ci Problem: chronic ci Symptoms: have improved ci Condition: Stable ci Diagnosis - Pain in left shoulder ci Followup: ci - With: Private Physician - When: 5 - 6 days - Reason: Re-evaluation by your physician Discharge Instructions: - Discharge Summary Sheet ci - Shoulder Pain, [id number] ci Forms: - Medication Reconciliation Form ci - Thank You Letter ci - Prescription Opioid Use ci - Patient Portal Instructions ci - Leadership Thank You Letter ci Signatures: Dispatcher [employer] Dori [place] RN RN mb9 Allie Giraldo RN RN me1 Rosa Elena Lopez ci
== END 2023-01-17 16:17 | disposition home or self-care (01) ==
LOC: ER 13:07
DX: M25.512 Pain in left shoulder (principal)
CPT/HCPCS: 96372; 99284

== ENCOUNTER 2024-10-06 11:35 | Emergency (ER) | payer OTHER ==
--- OUTSIDE RECORDS SUMMARY | 2024-10-06 11:42 | XMS REPORT | Continuity of Care Document ---
Author Name Unknown Address [address] [facility] [address] [place] [address] [facility] Address [address] [facility] [place] [address] Care Team Providers Care Sole Stitcher Hand Name Role Phone Dustin Elizalde Primary Care Physician [phone] Tika Gomez MD Attending Clinician [phone] Doctor Unassigned, [place] Attending Clinician U jorgeailTIKA Milligan Attending Clinician TIKA Irwin Attending Clinician WE[place] Mcfadden Attending Clinician Unavailable Patrice Hollins Attending Clinician [phone] RADHA TRONCOSO Attending Clinician Horacio Smith DO Attending Clinician [phone] Wellington Moyer MD Attending Clinician [facility] Attending Clinician TIKA Irwin Admitting Clinician LAURA Rubi Admitting Clinician Unavailable Payers Payer Name Policy Type Policy Number Effective Date Expirati on Date Source Problems Condition Name Condition Details Condition Category Status Onset Date Resolution Date Last Treatment Date Treating Clinician Comments Source Atrophic vaginitis Atrophic Vaginitis Problem Active 06-06 00:00: 00 [facility] Low back pain Low Back Pain Problem Active 06-06 00:00: 00 [facility] Urge incontinen ce of urine Urge Incontinen ce of Urine Problem Active 06-06 00:00: 00 [facility] History of heartburn History of Heartburn Problem Active 06-06 00:00: 00 [facility] Anxiety Anxiety Problem Active 06-06 00:00: 00 [facility] Chronic depression Chronic Depression Problem Active 06-06 00:00: 00 [facility] Constipati on Constipati on Problem Active 06-06 00:00: 00 [facility] Gallstone Gallstone Problem Active 06-06 00:00: 00 [facility] Cyst of ovary Cyst of Ovary Problem Active 06-06 00:00: 00 [facility] Right knee pain Right knee pain Disease Active 07-17 00:00: 00 [facility] Right knee pain Right knee pain Disease Active 07-17 00:00: 00 [facility] Low back pain Low back pain Disease Active 07-17 00:00: 00 [facility] Lumbago Lumbago Disease Active 08-02 00:00: 00 [facility] Thoracic or lumbosacra l neuritis or radiculiti s, unspecifie d Thoracic or lumbosacra l neuritis or radiculiti s, unspecifie d Disease Active 08-02 00:00: 00 Overview: Formattin g of this note might be different from the original. BLE radiculit is [facility] Disturbanc e of skin sensation Disturbanc e of skin sensation Disease Active 08-02 00:00: 00 Overview: Formattin g of this note might be different from the original. BLE [facility] Muscle weakness (generaliz ed) Muscle weakness (generaliz ed) Disease Active 08-02 00:00: 00 Overview: Formattin g of this note might be different from the original. BUE weakness; Distal worse than proximal leg weakness [facility] Abnormalit y of gait Abnormalit y of gait Disease Active 08-02 00:00: 00 [facility] Cramp of limb Cramp of limb Disease Active 08-02 00:00: 00 [facility] Cervicalgi a Cervicalgi a Disease Active 08-02 00:00: 00 [facility] Allergies, Adverse Reactions, Alerts Allergy Name Allergy Type Status Severity Reaction(s) Onset Date Inactive Date Treating Clinician Comments Source Sulfa Drugs (Not Checked) Propensi ty to adverse reaction to drug Active 1-30 00:00: 00 Santy Chew penicill in G Propensi ty to adverse reaction to drug Active 2023-05 0- 00:00: 00 Santy Chew Sulfa Antibiot ics - CLASS Propensi ty to adverse reaction to drug Active 2022-05 0- 00:00: 00 Santy Chew Penicill ins Propensi ty to adverse reaction to drug Inactiv e 2019-05 0- 00:00: 00 Santy Chew Sulfa (Sulfona mide Antibiot ics) Propensi ty to adverse reaction to drug Inactiv e 4-06 00:00: 00 Santy Chew Sulfamet hoxazole -Trimeth oprim Propensi ty to adverse reaction s Active Rash 3 00:00: 00 [facility] SULFAMET HOXAZOLE -TRIMETH OPRIM DRUG Active Rash 07-27 00:00: 00 [facility] PENICILL INS Drug Class Active ITCHING 07-27 00:00: 00 [facility] SULFA (SULFONA MIDE ANTIBIOT ICS) Drug Class Active Rash - 00:00: 00 [facility] Penicill ins Propensi ty to adverse reaction s Active Itching 07-27 00:00: 00 [facility] Sulfa (Sulfona mide Antibiot ics) Propensi ty to adverse reaction s Active Rash 07-27 00:00: 00 [facility] Penicill ins Propensi ty to adverse reaction s Active Itching 07-27 00:00: 00 [facility] Sulfa (Sulfona mide Antibiot ics) Propensi ty to adverse reaction s Active Rash 07-27 00:00: 00 [facility] PENICILL INS Allergy to substanc e Active [facility] SULFA (SULFONA MIDE ANTIBIOT ICS) Allergy to substanc e Active [facility] Social History Social Habit Start Date Stop Date Quantity Comments Source History of tobacco use Cigarette Smoker [facility] 2023-02-14 00:00:00 2023-02-14 00:00:00 0 /d [facility] Exposure to SARS-CoV-2 (event) 2022-05-10 00:00:00 2022-05-20 11:22:00 Not sure [facility] Cigarettes smoked current (pack per day) - Reported 2022-05-20 00:00:00 2022-05-20 00:00:00 [facility] Tobacco use and exposure 2022-05-20 00:00:00 2022-05-20 00:00:00 Smokeless tobacco non-user [facility] History of Social function 2022-05-20 00:00:00 2022-05-20 00:00:00 [facility] Sex Assigned At 1970 00:00:00 1970 00:00:00 [facility] Smoking Status Start Date Stop Date Source Smokes tobacco daily 2022-05-20 00:00:00 [facility] Medications Ordered Medication Name Filled Medication Name Start Date Stop Date Current Medication? Ordering Clinician Indication Dosage Frequency Signature (SIG) Comments Components Source ibuprofen 800 mg tablet 06-21 00:00: 00 Yes 1mg Santy Chew baclofen 10 mg tablet 06-18 00:00: 00 Yes mg Santy Chew azelastine 137 mcg-flutica sone 50 mcg/spray nasal spray 06-09 00:00: 00 Yes mcg/spr ay Santy Chew estradiol 0.01% (0.1 mg/gram) vaginal cream 06-06 00:00: 00 Yes % (0.1 mg/gram ) Santy Chew gabapentin 600 mg tablet -14 00:00: 00 Yes mg Santy Chew triamterene 37.5 mg-hydrochl orothiazide 25 mg tablet 05-30 00:00: 00 Yes mg Santy Chew chlorhexidi ne gluconate 0.12 % mouthwash 05-30 00:00: 00 Yes % Santy Chew omeprazole 40 mg capsule,del ayed release 1-07 00:00: 00 Yes mg Santy Chew nortriptyli ne 75 mg capsule 1- 00:00: 00 Yes mg Santy Chew APPLY 1 APPLICATION TO AFFECTED AREA EXTERNALLY 3 TIMES A DAY FOR 10 DAYS 3-19 00:00: 00 Yes Santy Chew GABAPENTIN 600MG(N) 1-31 00:00: 00 Yes 600 Santy Chew DICLOFENAC 75 mg EC tablet -24 00:00: 00 Yes [id number] TAKE 1 TABLET BY MOUTH IN THE MORNING AND IN THE EVENING WITH MEALS [facility] TAKE 1 TABLET BY MOUTH EVERY DAY IN THE EVENING - 00:00: 00 Yes Santy Chew DICLOFEN SOD 75MG EC 2022-05- 00:00: 00 Yes Santy Chew LEVOTHYROXI N 50MCG 2022-05- 00:00: 00 Yes Santy Chew DICLOFENAC SODIUM DR 75 MG TBEC 2022-05- 00:00: 00 Yes Santy Chew diclofenac 75 mg EC tablet 2022-05 00:00: 00 - 00:00 :00 No [id number] 75mg Take 1 tablet by mouth in the morning and 1 tablet in the evening. Take with meals. [facility] BACLOFEN 10MG 2022-05- 00:00: 00 Yes [id number] Santy Chew GABAPENTIN 600MG 2022-05 1-04 00:00: 00 Yes Santy Chew APPLY 1 APPLICATION EXTERNALLY TWICE A DAY FOR 10 DAYS 2022-05 0-26 00:00: 00 Yes Santy Chew TRIAMT/HCTZ 37.5-25 2022-05 0-20 00:00: 00 Yes Santy Chew SPRAY 1 SPRAY INTO EACH NOSTRIL TWICE A DAY 2022-05 0-20 00:00: 00 Yes Santy Chew OMEPRAZOLE 40MG 2022-05 0-20 00:00: 00 Yes [id number] Santy Chew BACLOFEN 10 MG TABS 2022-05 0-20 00:00: 00 Yes Santy Chew LEVOTHYROXI NE SODIUM 50 MCG TABS 2022-05 0-20 00:00: 00 Yes Santy Chew TAKE 1 CAPSULE BY MOUTH EVERY DAY FOR 90 DAYS 2022-05 0-20 00:00: 00 Yes Santy Chew TAKE 2 CAPSULES BY MOUTH EVERY DAY FOR 10 DAYS, THEN 1 CAPSULE DAILY 2022-05 0-18 00:00: 00 Yes 50 Santy Chew INSTILL 1 DROP INTO BOTH EYES 3 TIMES A DAY FOR 10 DAYS 2022-05 018 00:00: 00 Yes Santy Chew 5 ML SWISH AND SPIT QID X 7 DAYS 2022-05 0-09 00:00: 00 09-13 00:00 :00 No [id number] Santy Chew TAKE 2 TABLETS ON DAY 1 THEN TAKE 1 TABLET A DAY FOR 4 DAYS. 2022-05 0 00:00: 00 09-13 00:00 :00 No 250 Santy Chew AZEL/FLUTIC 137-50 SPR 9-05 00:00: 00 Yes Santy Chew TAKE 1 CAPSULE BY MOUTH EVERY 8 HOURS UNTIL GONE TAKE WITH FOOD AND DRINK PLENTY OF WATER 8-14 00:00: 00 Yes Santy Chew DULOXETINE 20MG DR 8-10 00:00: 00 Yes Santy Chew OMEPRAZOLE 40MG 8-08 00:00: 00 Yes Santy Chew TRIAMT/HCTZ 37.5-25 8-08 00:00: 00 Yes Santy Chew SPRAY 1 SPRAY INTO EACH NOSTRIL TWICE A DAY 7-24 00:00: 00 Yes Santy Chew CEPHALEXIN 500 MG 6-09 00:00: 00 Yes Santy Chew MONTELUKAST 10MG - 00:00: 00 Yes [id number] Santy Chew DIFLUPREDNA T 0.05% OP EMU 6- 00:00: 00 Yes 50 Santy Chew INSTILL 1 DROP INTO BOTH EYES EVERY 2 HOURS FOR 3 DAY THEN START 4 TIMES A DAY - 00:00: 00 Yes Santy Chew MONTELUKAST SODIUM 10 MG TABS 6- 00:00: 00 Yes Santy Chew BACLOFEN 10MG 2023-0 6-01 00:00: 00 Yes [id number] Santy Chew TRIAMT/HCTZ 37.5-25 2022-0 5-05 00:00: 00 Yes Santy Chew AZEL/FLUTIC 137-50 [facility] 0 5-02 00:00: 00 Yes Santy Chew GABAPENTIN 600 MG TABS 0 4-20 00:00: 00 Yes Santy Chew NORTRIPTYLI NE HCL 75 MG 0 4-20 00:00: 00 Yes Santy Chew LEVOTHYROXI NE SODIUM 50 MCG TABS 0 4-20 00:00: 00 Yes Santy Chew TAKE 1 CAPSULE BY MOUTH EVERY DAY FOR 90 DAYS 0 4-20 00:00: 00 Yes Santy Chew TRIAMTERENE /HYDROCHLOR OTHIAZIDE 37.5-25 MG TABS 0 4-20 00:00: 00 Yes Santy Chew LEVOTHYROXI N 50MCG 0 4-10 00:00: 00 Yes Santy Chew BACLOFEN 10MG 0 3-12 00:00: 00 Yes Santy Chew AZEL/FLUTIC 137-50 [facility] 0 3-08 00:00: 00 Yes Santy Chew INSTILL 1 DROP INTO BOTH EYES 3 TIMES A DAY FOR 14 DAYS 0 2-18 00:00: 00 09-13 00:00 :00 No Santy Chew TAKE 1 CAPSULE BY MOUTH EVERY DAY IN THE MORNING 30 MINUTES BEFORE BREAKFAST 2022-0 2-14 00:00: 00 Yes Sanyt Chew GABAPENTIN 600 MG TABS 0 2-13 00:00: 00 Yes Santy Chew DULOXETINE HYDROCHLORI DE 20 MG CPEP 0 2-03 00:00: 00 Yes Santy Chew TAKE 1 TABLET BY MOUTH EVERY DAY IN THE MORNING FOR 90 DAYS 0 1-26 00:00: 00 Yes Santy Chew LEVOTHYROXI NE SODIUM 50 MCG TABS 0 1-10 00:00: 00 09-13 00:00 :00 No Santy Chew DULOXETINE HYDROCHLORI DE 20 MG CPEP 0 1-10 00:00: 00 09-13 00:00 :00 Danni Chew TAKE 1 CAPSULE BY MOUTH EVERY DAY 1-04 00:00: 00 Yes Santy Chew CLINDAMYCIN HCL 300 MG 2021-05 2-16 00:00: 00 09-13 00:00 :00 Danni Chew TAKE 1 TABLET BY MOUTH TWICE A DAY NEEDED 2021-05 2-15 00:00: 00 Yes Santy Chew AZELASTINE HYDROCHLORI DE/FLUTICAS ON E PROPIONATE 137-50 MCG/ACT SUSP 2021-05 2-15 00:00: 00 09-13 00:00 :00 Danni Chew OMEPRAZOLE 40 MG CPDR 2021-05 1-17 00:00: 00 09-13 00:00 :00 Danni Chew TAKE 1 TABLET BY MOUTH THREE TIMES A DAY NEEDED FOR PAIN FOR 90 DAYS 2021-05 00:00: 00 Yes Santy Chew CALCIPOTRIE NE 0.005 % CREA 2021-05 0-18 00:00: 00 Yes Santy Chew TAKE 1 CAPSULE BY MOUTH EVERY DAY 2021-05 0-06 00:00: 00 09-13 00:00 :00 Danni Chew TAKE 6 TABLETS ON DAY 1 DIRECTED ON PACKAGE AND DECREASE BY 1 TAB EACH DAY FOR A TOTAL OF 6 DAYS 9-29 00:00: 00 09-13 00:00 :00 Danni Chew INSTILL 1 DROP INTO RIGHT EYE 4 TIMES A DAY FOR 7 DAYS 9- 00:00: 00 09-13 00:00 :00 Danni Chew TAKE 1 CAPSULE BY MOUTH EVERY DAY IN THE MORNING 30 MINUTES BEFORE BREAKFAST - 00:00: 00 09-13 00:00 :00 Danni Chew USE DIRECTED - 00:00: 00 09-13 00:00 :00 Danni Chew USE 1 SPRAY INTO EACH NOSTRIL 2 TIMES A DAY 30 8-02 00:00: 00 09-13 00:00 :00 Danni Chew APPLY THIN LAYER TO OPEN SORE ON FACE TWICE A DAY 7-18 00:00: 09-13 00:00 :00 No Santy Divya Chew TAKE 1 CAPSULE BY MOUTH EVERY DAY 2021-0 7-05 00:00: 00 09-13 00:00 :00 No Santy Divya Chew TAKE 1 TABLET BY MOUTH TWICE A DAY NEEDED FOR 90 DAYS 2021-0 5-19 00:00: 00 09-13 00:00 :00 No Santy Divya Chew TAKE 1 TABLET BY MOUTH EVERY DAY IN THE MORNING FOR 90 DAYS 2021-0 5-19 00:00: 00 09-13 00:00 :00 No Santy Divya Chew TAKE 1 TABLET BY MOUTH 3 TIMES A DAY NEEDED FOR PAIN 90 DAYS 2021-0 5-19 00:00: 00 09-13 00:00 :00 No Santy Divya Chew TAKE 1 TABLET BY MOUTH EVERY DAY IN THE MORNING ON EMPTY STOMACH FOR 90 DAYS 2021-0 4-21 00:00: 00 09-13 00:00 :00 No Santy Chew APPLY TWICE DAILY TO PSORIASIS FOR UP TO 2 WEEKS OUT OF EVERY MONTH NEEDED 2021-0 - 00:00: 00 Yes Santy Divya Chew APPLY TWICE A DAY TO SCALP FOR 2 WEEKS OUT OF EVERY MONTH 2021-0 08-26 00:00: 00 Yes Santy Chew APPLY TO AFFECTED AREAS OF PSORIASIS ON TRUNK AND EXTREMITIES TWICE A DAY NEEDED 2021-0 08-26 00:00: 00 Yes Santy Divya Chew NORTRIPTYLI NE HCL 75 MG 0 08-21 00:00: 00 Yes Santy Divya Laura APPLY SMALL AMOUNT INTO LOWER EYELID EVERY DAY AT BEDTIME INTO BOTH EYES 0 08-17 00:00: 00 Yes Santy Divya Laura AZELASTINE HYDROCHLORI DE/FLUTICAS ON E PROPIONATE 137-50 MCG/ACT SUSP 0 08-17 00:00: 00 Yes Santy Divya Laura duloxetine 30 mg capsule,del ayed release 2020-05 00:00: 00 Yes 1mg Santy Divya Chew nortriptyli ne 50 mg capsule 2020-05 00:00: 00 Yes 1mg Santy Divya Chew nortriptyli ne 25 mg capsule 2020-05 00:00: 00 Yes 1mg Santy Chew nortriptyli ne 75 mg capsule 2020-05 00:00: 00 Yes mg Santy Chew levothyroxi ne 50 mcg tablet 01-29 00:00: 00 Yes 1mcg Santy Chew pantoprazol e 40 mg tablet,shahida yed release 01-26 00:00: 00 Yes 1mg Santy Chew levothyroxi ne 50 mcg tablet 01-26 00:00: 00 Yes 1mcg Santy Chew doxycycline monohydrate 100 mg capsule 06-18 00:00: 00 Yes 1mg Santy Chew OMEPRAZOLE ORAL 06-02 17:42: 09 Yes 40mg Take 40 mg by mouth daily. [facility] tetrahydroz oline HCl/zinc sulf (EYE DROPS ALLERGY RELIEF OPHTHALMIC) 06-02 17:40: 48 Yes 1[drp] Place 1 Drop in each eye daily. In both eyes [facility] cetirizine (ZYRTEC) 10 mg tablet 06-02 17:40: 48 Yes 10mg Take 10 mg by mouth daily. [facility] fluticasone (FLONASE SENSIMIST) 27.5 mcg/actuati on nasal spray 06-02 17:40: 48 Yes 2{spray } Use 2 Sprays in each nostril daily. [facility] vitamin C with jihan hips (VITAMIN C) 1,000 mg tablet 06-02 17:40: 48 Yes 500mg Take 500 mg by mouth daily. [facility] ALBUTEROL SULFATE INHALE 06-02 17:40: 48 Yes PRN [facility] HYDROCODONE -ACETAMINOP HEN 7.5-500 MG ORAL TAB 06-02 17:40: 48 Yes 1-2 tabs PRN pain [facility] ALEVE ORAL 06-02 17:40: 48 06-02 00:00 :00 No 2 tabs PRN JASMINE [facility] OMEPRAZOLE ORAL 06-02 11:42: 09 Yes 40mg Take 40 mg by mouth daily. [facility] ALBUTEROL SULFATE INHALE 06-02 11:40: 48 Yes PRN [facility] HYDROCODONE -ACETAMINOP HEN 7.5-500 MG ORAL TAB 06-02 11:40: 48 Yes 1-2 tabs PRN pain [facility] tetrahydroz oline HCl/zinc sulf (EYE DROPS ALLERGY RELIEF OPHTHALMIC) 06-02 11:40: 48 Yes 1[drp] Place 1 Drop in each eye daily. In both eyes [facility] cetirizine (ZYRTEC) 10 mg tablet 06-02 11:40: 48 Yes 10mg Take 10 mg by mouth daily. [facility] fluticasone (FLONASE SENSIMIST) 27.5 mcg/actuati on nasal spray 06-02 11:40: 48 Yes 2{spray } Use 2 Sprays in each nostril daily. [facility] vitamin C with jihan hips (VITAMIN C) 1,000 mg tablet 06-02 11:40: 48 Yes 500mg Take 500 mg by mouth daily. [facility] Macrobid 100 mg capsule 2019-05 00:00: 00 Yes 1mg Santy Chew ondansetron 4 mg disintegrat ing tablet 12-08 00:00: 00 Yes 1mg Santy Chew clarithromy amira 500 mg tablet 2017-05 00:00: 00 Yes 1mg Santy Chew metronidazo le 500 mg tablet 2017-05 00:00: 00 Yes 1mg Santy Chew pantoprazol e 40 mg tablet,shahida yed release 2017-05 00:00: 00 Yes 1mg Santy Chew promethazin e-DM 6.25 mg-15 mg/5 mL syrup 2017-05 00:00: 00 Yes 10mg/5 mL Santy Chew prednisone 20 mg tablet 09-05 00:00: 00 Yes mg Santy Chew promethazin e-DM 6.25 mg-15 mg/5 mL syrup 09-05 00:00: 00 Yes 10mg/5 mL Santy Chew ALBUTEROL SULFATE INHALE 01-04 20:09: 36 Yes PRN [facility] HYDROCODONE -ACETAMINOP HEN 7.5-500 MG ORAL TAB 01-04 20:09: 36 Yes 1-2 tabs PRN pain [facility] ALEVE ORAL 01-04 20:09: 36 Yes 2 tabs PRN JASMINE [facility] Cipro 500 mg tablet 08-27 00:00: 00 Yes 1mg Santy Chew ProAir HFA 90 mcg/actuati on aerosol inhaler 08-26 00:00: 00 Yes 1mcg/ac tuation Santy Chew gabapentin 600 mg tablet 08-26 00:00: 00 Yes 1mg Santy Chew baclofen 10 mg tablet 08-26 00:00: 00 Yes 1mg Santy Chew levothyroxi ne 50 mcg tablet 08-26 00:00: 00 Yes 1mcg Santy Chew nortriptyli ne 25 mg capsule 08-26 00:00: 00 Yes 1mg Santy Chew triamterene 37.5 mg-hydrochl orothiazide 25 mg capsule 08-26 00:00: 00 Yes 1mg Santy Chew Cholecalcif scott, Vitamin D3, (VITAMIN D3) 2,000 unit capsule 09-16 00:00: 00 Yes 1{capsu le} Take 1 capsule by mouth daily. [facility] nortriptyli ne (PAMELOR) 25 mg capsule 08-20 00:00: 00 Yes 75mg Take 75 mg by mouth at bedtime. [facility] nortriptyli ne (PAMELOR) 25 mg capsule 08-20 00:00: 00 Yes 25mg Take 25 mg by mouth at bedtime. [facility] escitalopra m oxalate (LEXAPRO) 10 mg tablet 07-09 00:00: 00 Yes 10mg Take 10 mg by mouth daily. [facility] azelastine 137 mcg-flutica sone 50 mcg/spray nasal spray INHALE 1 SPRAY IN EACH NOSTRIL TWICE A DAY azelastine 137 mcg-flutica sone 50 mcg/spray nasal spray INHALE 1 SPRAY IN EACH NOSTRIL TWICE A DAY No azelastine 137 mcg-flutic asone 50 mcg/spray nasal spray INHALE 1 SPRAY IN EACH NOSTRIL TWICE A DAY [facility] baclofen 10 mg tablet TAKE 1 TABLET BY MOUTH TWICE A DAY NEEDED baclofen 10 mg tablet TAKE 1 TABLET BY MOUTH TWICE A DAY NEEDED No baclofen 10 mg tablet TAKE 1 TABLET BY MOUTH TWICE A DAY NEEDED [facility] chlorhexidi ne gluconate 0.12 % mouthwash RINSE WITH 1 CAPFUL BY MOUTH AND SPIT TWICE A DAY DO NOT SWALLOW chlorhexidi ne gluconate 0.12 % mouthwash RINSE WITH 1 CAPFUL BY MOUTH AND SPIT TWICE A DAY DO NOT SWALLOW No chlorhexid ine gluconate 0.12 % mouthwash RINSE WITH 1 CAPFUL BY MOUTH AND SPIT TWICE A DAY DO NOT SWALLOW [facility] erythromyci n 5 mg/gram (0.5 %) eye ointment INSTILL INTO LOWER EYELIDS OF BOTH EYES AT BEDTIME FOR 2 WEEKS erythromyci n 5 mg/gram (0.5 %) eye ointment INSTILL INTO LOWER EYELIDS OF BOTH EYES AT BEDTIME FOR 2 WEEKS No erythromyc in 5 mg/gram (0.5 %) eye ointment INSTILL INTO LOWER EYELIDS OF BOTH EYES AT BEDTIME FOR 2 WEEKS [facility] estradiol 0.01% (0.1 mg/gram) vaginal cream Insert 0.5 g 3 times a week by vaginal route at bedtime for 30 days. estradiol 0.01% (0.1 mg/gram) vaginal cream Insert 0.5 g 3 times a week by vaginal route at bedtime for 30 days. No .5g Q56H estradiol 0.01% (0.1 mg/gram) vaginal cream Insert 0.5 g 3 times a week by vaginal route at bedtime for 30 days. [facility] Fish Oil Fish Oil No Fish Oil [facility] gabapentin 600 mg tablet TAKE 2 TABLETS BY MOUTH TWICE A DAY gabapentin 600 mg tablet TAKE 2 TABLETS BY MOUTH TWICE A DAY No gabapentin 600 mg tablet TAKE 2 TABLETS BY MOUTH TWICE A DAY [facility] levothyroxi ne 50 mcg tablet TAKE 1 TABLET BY MOUTH ON AN EMPTY STOMACH IN THE MORNING levothyroxi ne 50 mcg tablet TAKE 1 TABLET BY MOUTH ON AN EMPTY STOMACH IN THE MORNING No levothyrox ine 50 mcg tablet TAKE 1 TABLET BY MOUTH ON AN EMPTY STOMACH IN THE MORNING [facility] magnesium magnesium No magnesium [facility] nortriptyli ne 75 mg capsule TAKE 1 CAPSULE BY MOUTH EVERY DAY FOR 90 DAYS nortriptyli ne 75 mg capsule TAKE 1 CAPSULE BY MOUTH EVERY DAY FOR 90 DAYS No nortriptyl ine 75 mg capsule TAKE 1 CAPSULE BY MOUTH EVERY DAY FOR 90 DAYS [facility] Ocuvite Ocuvite No Ocuvite [facility] omeprazole 40 mg capsule,del ayed release TAKE 1 CAPSULE BY MOUTH EVERY DAY FOR 90 DAYS omeprazole 40 mg capsule,del ayed release TAKE 1 CAPSULE BY MOUTH EVERY DAY FOR 90 DAYS No omeprazole 40 mg capsule,de layed release TAKE 1 CAPSULE BY MOUTH EVERY DAY FOR [address] [facility] Probiotic Probiotic No Probiotic [facility] triamterene 37.5 mg-hydrochl orothiazide 25 mg tablet TAKE 1 TABLET BY MOUTH EVERY DAY IN THE MORNING FOR 90 DAYS triamterene 37.5 mg-hydrochl orothiazide 25 mg tablet TAKE 1 TABLET BY MOUTH EVERY DAY IN THE MORNING FOR 90 DAYS No triamteren e 37.5 mg-hydroch lorothiazi de 25 mg tablet TAKE 1 TABLET BY MOUTH EVERY DAY IN THE MORNING FOR 90 DAYS [facility] Zyrtec Zyrtec No Zyrtec [facility] Immunizations Ordered Immunization Name Filled Immunization Name Date Status Comments Source Pfizer COVID-19 Vaccine Pfizer COVID-19 Vaccine 2020-11-24 00:00:00 Jose Chew Vital Signs Vital Name Observation Time Observation Value Comments S ource BP Diastolic 2024-06-06 00:00:00 79 mm[Hg] [facility] BP Systolic 2024-06-06 00:00:00 129 mm[Hg] [facility] BMI (Body Mass Index) 2024-06-06 00:00:00 38.7 kg/m2 [facility] Body Weight 2024-06-06 00:00:00 240 [lb_av] [facility] Height 2024-06-06 00:00:00 66 [in_i] [facility] Body weight 2023-04-22 16:18:00 117.482 kg [facility] BMI 2023-04-22 16:18:00 44.46 kg/m2 [facility] Body height 2023-02-14 20:28:00 162.6 cm [facility] Body weight 2023-02-14 20:28:[address] [facility] BMI 2023-02-14 20:28:00 44.56 kg/m2 [facility] Systolic blood pressure 2022-05-20 17:39:00 116 mm[Hg] [facility] Diastolic blood pressure 2022-05-20 17:39:00 68 mm[Hg] [facility] Heart rate 2022-05-20 17:39:00 75 /min [facility] Oxygen saturation in Arterial blood by Pulse oximetry 2022-05-20 17:39:00 99 /min [facility] Body height 2022-05-20 17:25:00 167.6 cm [facility] Body weight 2022-05-20 17:25:00 106.595 kg [facility] BMI 2022-05-20 17:25:00 37.93 kg/m2 [facility] Systolic blood pressure 2020-11-06 14:07:00 124 mm[Hg] [facility] Diastolic blood pressure 2020-11-06 14:07:00 81 mm[Hg] [facility] Heart rate 2020-11-06 14:07:00 90 /min [facility] Body height 2020-11-06 14:07:00 167.6 cm [facility] Body weight 2020-11-06 14:07:[address] [facility] BMI 2020-11-06 14:07:00 38.74 kg/m2 [facility] Systolic blood pressure 2020-06-02 17:36:00 136 mm[Hg] [facility] Diastolic blood pressure 2020-06-02 17:36:00 83 mm[Hg] [facility] Heart rate 2020-06-02 17:36:00 81 /min [facility] Respiratory rate 2020-06-02 17:36:00 18 /min [facility] Body height 2020-06-02 17:36:00 167.6 cm [facility] Body weight 2020-06-02 17:36:00 109.135 kg [facility] BMI 2020-06-02 17:36:00 38.83 kg/m2 [facility] Oxygen saturation in Arterial blood by Pulse oximetry 2020-06-02 17:36:00 93 /min [facility] BP Systolic 2024-09-17 15:47:00 118 mm[Hg] Step hen F [facility] BP Diastolic 2024-09-17 15:47:00 70 mm[Hg] Josh phen F Laura Weight Measured 2024-09-17 15:47:00 242.40 pounds Santy F Laura Height Measured 2024-09-17 15:47:00 65.20 inches Santy F Laura Body Temperature 2024-09-17 15:47:00 98.30 degrees Santy F [facility] Heart Rate 2024-09-17 15:47:00 98.00 /min Mariel en F [facility] Respiratory Rate 2024-09-17 15:47:00 18.00 /min Santy F Laura BP Systolic 2024-06-21 14:50:00 116 mm[Hg] Step hen F Laura BP Diastolic 2024-06-21 14:50:00 74 mm[Hg] Josh phen F Laura Weight Measured 2024-06-21 14:50:00 239.00 pounds Santy F Laura Height Measured 2024-06-21 14:50:00 65.20 inches Santy F Laura Body Temperature 2024-06-21 14:50:00 98.20 degrees Santy F Laura Heart Rate 2024-06-21 14:50:00 93.00 /min Mariel en F Laura Respiratory Rate 2024-06-21 14:50:00 18.00 /min Santy F Laura BP Systolic 2024-03-14 11:17:00 125 mm[Hg] Step hen F Laura BP Diastolic 2024-03-14 11:17:00 76 mm[Hg] Josh phen F Laura Weight Measured 2024-03-14 11:17:00 243.00 pounds Santy F Laura Height Measured 2024-03-14 11:17:00 65.20 inches Santy F Laura Body Temperature 2024-03-14 11:17:00 98.30 degrees Santy F Laura Heart Rate 2024-03-14 11:17:00 78.00 /min Mariel en F Laura Respiratory Rate 2024-03-14 11:17:00 16.00 /min Santy F Laura BP Systolic 2023-06-14 16:18:00 117 mm[Hg] Step hen F Laura BP Diastolic 2023-06-14 16:18:00 81 mm[Hg] Josh phen F Laura Weight Measured 2023-06-14 16:18:00 239.20 pounds Santy F Laura Height Measured 2023-06-14 16:18:00 65.20 inches Santy F Laura Body Temperature 2023-06-14 16:18:00 98.20 degrees Santy F Laura Heart Rate 2023-06-14 16:18:00 97.00 /min Mariel en F Laura Respiratory Rate 2023-06-14 16:18:00 18.00 /min Santy F Laura BP Systolic 2023-02-28 14:18:00 115 mm[Hg] Step hen F Laura BP Diastolic 2023-02-28 14:18:00 78 mm[Hg] Josh phen F Laura Weight Measured 2023-02-28 14:18:00 237.00 pounds Santy F Laura Height Measured 2023-02-28 14:18:00 65.20 inches Santy F Laura Body Temperature 2023-02-28 14:18:00 98.70 degrees Santy F Laura Heart Rate 2023-02-28 14:18:00 88.00 /min Mariel en F Laura Respiratory Rate 2023-02-28 14:18:00 Santy F Laura BP Systolic 2023-01-27 17:14:00 118 mm[Hg] Step hen F Laura BP Diastolic 2023-01-27 17:14:00 82 mm[Hg] Josh phen F Laura Weight Measured 2023-01-27 17:14:00 237.40 pounds Santy F Laura Height Measured 2023-01-27 17:14:00 65.20 inches Santy F Laura Body Temperature 2023-01-27 17:14:00 97.90 degrees Santy F Laura Heart Rate 2023-01-27 17:14:00 96.00 /min Mariel en F Laura Respiratory Rate 2023-01-27 17:14:00 18.00 /min Santy F Laura BP Systolic 2022-08-09 10:26:00 124 mm[Hg] Step hen F Laura BP Diastolic 2022-08-09 10:26:00 82 mm[Hg] Josh phen F Laura Weight Measured 2022-08-09 10:26:00 236.20 pounds Santy F Laura Height Measured 2022-08-09 10:26:00 65.20 inches Santy F Laura Body Temperature 2022-08-09 10:26:00 98.60 degrees Santy F Laura Heart Rate 2022-08-09 10:26:00 90.00 /min Mariel en F Laura Respiratory Rate 2022-08-09 10:26:00 18.00 /min Santy F Laura BP Systolic 2021-01-26 17:28:00 145 mm[Hg] Step hen F Laura BP Diastolic 2021-01-26 17:28:00 81 mm[Hg] Josh phen F Laura Weight Measured 2021-01-26 17:28:00 242.20 pounds Santy F Laura Height Measured 2021-01-26 17:28:00 65.50 inches Santy F Laura Body Temperature 2021-01-26 17:28:00 98.30 degrees Santy F Laura Heart Rate 2021-01-26 17:28:00 96.00 /min Mariel en F Laura Respiratory Rate 2021-01-26 17:28:00 17.00 /min Santy F Laura BP Systolic 2021-01-26 17:15:00 145 mm[Hg] Step hen F Laura BP Diastolic 2021-01-26 17:15:00 81 mm[Hg] Josh phen F Laura Weight Measured 2021-01-26 17:15:00 242.20 pounds Santy F Laura Height Measured 2021-01-26 17:15:00 65.50 inches Santy F Laura Body Temperature 2021-01-26 17:15:00 98.30 degrees Santy F Laura Heart Rate 2021-01-26 17:15:00 96.00 /min Mariel en F Laura Respiratory Rate 2021-01-26 17:15:00 17.00 /min Santy F Laura BP Systolic 2020-06-18 14:34:00 123 mm[Hg] Step michaela Chew BP Diastolic 2020-06-18 14:34:00 71 mm[Hg] Josh phen Divya Chew Weight Measured 2020-06-18 14:34:00 238.60 pounds Santy Chew Height Measured 2020-06-18 14:34:00 65.50 inches Santy Chew Body Temperature 2020-06-18 14:34:00 98.90 degrees Santy Chew Heart Rate 2020-06-18 14:34:00 92.00 /min Mariel en F Laura Respiratory Rate 2020-06-18 14:34:00 18.00 /min Santy Chew BP Systolic 2020-05-10 09:08:00 103 mm[Hg] Fabricio hen Divya Chew BP Diastolic 2020-05-10 09:08:00 66 mm[Hg] Josh phen Divya Chew Weight Measured 2020-05-10 09:08:00 240.00 pounds Santy Chew Height Measured 2020-05-10 09:08:00 65.50 inches Santy Chew Body Temperature 2020-05-10 09:08:00 97.90 degrees Santy Chew Heart Rate 2020-05-10 09:08:00 95.00 /min Mariel en Divya Chew Respiratory Rate 2020-05-10 09:08:00 Santy Chew Procedures Procedure Date / Time Performed Performing Clinician Source MAMMO, screening, digital, bilateral 2024-06-06 00:00:00 [facility] Medical REFERRAL- REQUEST/RESPONSE 2023-05-30 06:01:00 D octor Unassigned, [place] [facility] PHYSICIAN ORDERS 2023-05-03 06:01:00 Doctor Unas signed, [place] [facility] EXTERNAL PROVIDER RECORDS 2023-03-01 05:01:00 Do ctor Unassigned, [place] [facility] ASSIGNMENT OF BENEFITS 2023-02-14 20:05:32 Docto r Unassigned, [place] [facility] EXTERNAL PROVIDER RECORDS 2022-06-03 06:01:00 Do ctor Unassigned, [place] [facility] REFERRAL- REQUEST/RESPONSE 2022-05-09 06:01:00 D octor Unassigned, [place] [facility] REFERRAL- REQUEST/RESPONSE 2021-01-09 05:01:00 D octor Unassigned, [place] [facility] REFERRAL- REQUEST/RESPONSE 2020-12-12 05:01:00 D octor Unassigned, [place] [facility] REFERRAL- REQUEST/RESPONSE 2020-11-12 05:01:00 D octor Unassigned, [place] [facility] ASSIGNMENT OF BENEFITS 2020-06-02 17:30:05 Docto r Unassigned, [place] [facility] Cholecystectomy [facility] Medic al Hysterectomy [facility] Delivery [facility] Med ical Encounters Start Date/Time End Date/Time Encounter Type Admission Type Attending [facility] Care Department Encounter ID Source 2024-09-17 15:29:48 2024-09-17 15:29:48 Outpatient [facility] [id number] Santy Chew 2024-09-17 00:00:00 2024-09-17 00:00:00 Outpatient Visit SFA [id number] Santy Chew 2024-07-06 16:33:33 2024-07-06 16:33:33 Outpatient [facility] [id number] Santy Chew 2024-07-04 13:14:03 2024-07-04 13:14:03 Outpatient S[facility] [id number] Santy Chew 2024-06-21 00:00:00 2024-06-21 00:00:00 Outpatient Visit SFA [id number] Santy Stokes Laura 2024-06-06 00:00:00 2024-06-06 00:00:00 UVALDO Howe: [address], [address], [place] [address] , Ph. [facility] - [id number] young Marcos* [id number] [facility] 2024-03-21 14:20:32 2024-03-21 14:20:32 Outpatient SFA [facility] [id number] Santy Stokes Laura 2024-03-14 11:14:04 2024-03-14 11:14:04 Outpatient [facility] [id number] Santy Chew 2023-06-15 08:31:41 2023-06-15 08:31:41 Outpatient [facility] [id number] Santy Chew 2023-06-14 16:01:20 2023-06-14 16:01:20 Outpatient [facility] [id number] Santy Chew 2023-06-10 00:00:00 2023-06-10 00:00:00 Refill Serena Gomezig [facility] 1.2840.114 350.1.13.10 4.2.7.2.686 [id number] [facility] 2023-05-30 00:00:00 2023-05-30 00:00:00 Orders Only Doctor Unassigned, [place] [facility] 1.2840.114 350.1.13.10 4.2.7.2.686 [id number] [facility] 2023-05-03 00:00:00 2023-05-03 00:00:00 Orders Only Doctor Unassigned, [place] [facility] 1.2840.114 350.1.13.10 4.2.7.2.686 [id number] [facility] 2023-04-28 00:00:00 2023-04-28 00:00:00 Patient Secure Msg Doctor Unassigned, [place] [facility] 1.2840.114 350.1.13.10 4.2.7.2.686 [id number] [facility] 2023-04-22 11:00:00 2023-04-22 11:00:00 Office Visit Gomez Tika [facility] 1.2.840.114 350.1.13.10 4.2.7.2.686 [id number] [facility] 2023-04-22 11:00:00 2023-04-22 10:30:08 Outpatient R TIKA GOMEZ [facility] [id number] [facility] 2023-04-04 00:00:00 2023-04-04 00:00:00 Telephone Tika Gomez [facility] 1.2.840.114 350.1.13.10 4.2.7.2.686 [id number] [facility] 2023-03-29 12:54:36 2023-03-29 23:59:00 Outpatient R TIKA GOMEZ [facility] [id number] [facility] 2023-03-29 12:54:36 2023-03-29 23:59:00 Hospital Encounter Tika Gomez [facility] 1..840.114 350.1.13.10 4.2.7.2.686 [id number] [facility] 2023-03-01 00:00:00 2023-03-01 00:00:00 Outpatient R TIKA GOMEZ [facility] [id number] [facility] 2023-03-01 00:00:00 2023-03-01 00:00:00 Orders Only Doctor Unassigned, [place] [facility] 1.2.840.114 350.1.13.10 4.2.7.2.686 [id number] [facility] 2023-02-28 14:11:47 2023-02-28 14:11:47 Outpatient [facility] [id number] Santy Chew 2023-02-14 15:30:00 2023-02-14 15:40:49 Outpatient R TIKA GOMEZ [facility] [id number] [facility] 2023-02-14 15:30:00 2023-02-14 15:40:49 Office Visit Tika Gomez [facility] 1..840.114 350.1.13.10 4.2.7.2.686 [id number] [facility] 2023-02-14 00:00:00 2023-02-14 00:00:00 Orders Only Doctor Unassigned, [place] [facility] 1.840.114 350.1.13.10 4.2.7.2.686 [id number] [facility] 2023-01-27 17:07:56 2023-01-27 17:07:56 Outpatient [facility] [id number] Santy Stokes [place] 2022-08-16 17:43:52 2022-08-16 17:43:52 Outpatient [facility] [id number] Santy Stokes [place] 2022-08-11 17:21:25 2022-08-11 17:21:25 Outpatient [facility] [place] [id number] Santy Stokes [place] 2022-08-09 10:20:42 2022-08-09 10:20:42 Outpatient [facility] [place] [id number] Santy Stokes [place] 2022-06-03 00:00:00 2022-06-03 00:00:00 Orders Only Doctor Unassigned, [place] [facility] 1.840.114 350.1.13.10 4.2.7.2.686 [id number] [facility] 2022-05-20 11:15:00 2022-05-20 11:30:00 Office Visit Gumaro Tika L [facility] 1..840.114 350.1.13.10 4.2.7.2.686 [id number] [facility] 2022-05-20 11:15:00 2022-05-20 11:15:00 Out[address] T[address]A [address]OMEZ [facility] [id number] [facility] 2022-05-11 00:00:2022-05-11 00:00:00 Telephone Tika Gomez [facility] 1.2.840.114 350.1.13.10 4.2.7.2.686 [id number] [facility] 2022-05-09 00:00:00 2022-05-09 00:00:00 Orders Only Doctor Unassigned, [place] [facility] 1.2.840.114 350.1.13.10 4.2.7.2.686 [id number] [facility] 2021-01-09 00:00:00 2021-01-09 00:00:00 Orders Only Doctor Unassigned, [place] [facility] 1.2.840.114 350.1.13.10 4.2.7.2.686 [id number] [facility] 2020-12-12 00:00:00 2020-12-12 00:00:00 Orders Only Doctor Unassigned, [place] [facility] 1.2.840.114 350.1.13.10 4.2.7.2.686 [id number] [facility] 2020-12-01 12:00:00 2020-12-01 12:00:[address] [facility] [id number] [facility] 2020-11-12 00:00:00 2020-11-12 00:00:00 Orders Only Doctor Unassigned, [place] [facility] 1.2.840.114 350.1.13.10 4.2.7.2.686 [id number] [facility] 2020-11-06 09:06:43 2020-11-06 09:21:43 Office Visit Patrice Willoughby [facility] 1.2.840.114 350.1.13.10 4.2.7.2.686 [id number] [facility] 2020-11-06 09:15:00 2020-11-06 09:15:[address] [facility] [id number] [facility] 2020-10-15 11:01:17 2020-10-15 23:59:[address] [facility] [id number] [facility] 2020-08-07 00:00:00 2020-08-07 00:00:00 Patient Outreach Henrique Horaciojose j Barrow [facility] 1.2.840.114 350.1.13.10 4.2.7.2.686 [id number] [facility] 2020-06-03 00:00:00 2020-06-03 00:00:00 Patient Secure Msg Delphine [facility] BUILDING 1.2.840.114 350.1.13.10 4.2.7.2.686 [id number] [facility] 2020-06-02 12:31:35 2020-06-02 12:46:35 Gluer And Slicer Hand Visit Pojuan francisco, Ad[facility] Lab Main Delphine [facility] 1.2.840.114 350.1.13.10 4.2.7.2.686 [id number] [facility] 2020-06-02 11:31:59 2020-06-02 12:01:59 Office Visit Delphine [facility] Building 1.2.840.114 350.1.13.10 4.2.7.2.686 [id number] [facility] 2020-06-02 11:30:00 2020-06-02 11:30:00 Outpatient Yaneth MO[facility] [id number] [facility] 2020-06-02 00:00:00 2020-06-02 00:00:00 Orders Only Doctor Unassigned, [place] [facility] 1.2.840.114 350.1.13.10 4.2.7.2.686 [id number] [facility] Results Test Description Test Time Test Comments Results Result Co mments Source Privia [id number] 05:28:55* Test Item Value Reference Range Interpretation Comme nts AMYLASE (test code = 2204) 57 U/L 28-100 [id number] 05:28:55* Test Item Value Reference Range Interpretation Comme nts LIPASE (test code = 2057) 29 U/L 13-60 COMPREHENSIVE METABOLIC [id number] 05:19:15* Test Item Value Reference Range Interpretation Comme nts GLUCOSE (test code = 2216) 78 MG/DL 70-99 BUN (test code = 2207) 13 MG/DL 6-20 CREATININE (test code = 2213) 0.96 MG/DL 0.60-1.30 eGFR (2020 CKD-EPI) (test code = 72830) 71 ML/MIN/1.73 >60 CALC BUN/CREAT (test code = 2235) 14 RATIO 6-28 SODIUM (test code = 223) 140 MEQ/L 133-146 POTASSIUM (test code = 2228) 3.9 MEQ/L 3.5-5.4 CHLORIDE (test code = 2215) 99 MEQ/L 95-107 CARBON DIOXIDE (test code = 2206) 29 MEQ/L 19-31 CALCIUM (test code = 220) 9.5 MG/DL 8.5-10.5 PROTEIN, TOTAL (test code = 222) 7.2 G/DL 6.1-8.3 ALBUMIN (test code = 220) 4.3 G/DL 3.5-5.2 CALC GLOBULIN (test code = 2240) 2.9 G/DL 1.9-3.7 CALC A/G RATIO (test code = 2234) 1.5 RATIO 1.0-2.6 BILIRUBIN, TOTAL (test code = 220) 0.2 MG/DL <=1.2 ALKALINE PHOSPHATASE (test code = 2203) 70 U/L 40-132 AST (test code = 2218) 17 U/L 9-40 ALT (test code = 2219) 23 U/L 5-40 UNLESS OTHERWISE INDICATED, ALL TESTING PERFORMED AT [facility] [address] [place] [address] METER/RELAY CRAFTSMAN: KAJAL LOCKE M.D. CLIA NUMBER [id number] [facility] [place]. [id number] 00:00:00* Test Item Value Reference Range Interpretation Comme nts AMYLASE (test code = 2205) 57 U/L Santy F [id number] 00:00:00* Test Item Value Reference Range Interpretation Comme nts LIPASE (test code = 2057) 29 U/L Santy F AustinCOMPREHENSIVE METABOLIC [id number] 00:00:00* Test Item Value Reference Range Interpretation Comme nts GLUCOSE (test code = 2217) 78 MG/DL BUN (test code = 2208) 13 MG/DL CREATININE (test code = 2214) 0.96 MG/DL eGFR (2020 CKD-EPI) (test co de = 65524) 71 ML/MIN/1.73 CALC BUN/CREAT (test code = 2235) 14 RATIO SODIUM (test code = 2231) 140 MEQ/L POTASSIUM (test code = 2228) 3.9 MEQ/L CHLORIDE (test code = 2215) 99 MEQ/L CARBON DIOXIDE (test code = 2206) 29 MEQ/L CALCIUM (test code = 2209) 9.5 MG/DL PROTEIN, TOTAL (test code = 2229) 7.2 G/DL ALBUMIN (test code = 2201) 4.3 G/DL CALC GLOBULIN (test code = 2240) 2.9 G/DL CALC A/G RATIO (test code = 2234) 1.5 RATIO BILIRUBIN, TOTAL (test code = 2207) 0.2 MG/DL ALKALINE PHOSPHATASE (test code = 2204) 70 U/L AST (test code = 2218) 17 U/L ALT (test code = 2219) 23 U/L Santy F [id number] 00:00:00* Test Item Value Reference Range Interpretation Comme nts AMYLASE (test code = 2205) 57 U/L Santy F [id number] 00:00:00* Test Item Value Reference Range Interpretation Comme nts LIPASE (test code = 8) 29 U/L Santy ChewCOMPREHENSIVE METABOLIC [id number] 00:00:00* Test Item Value Reference Range Interpretation Comme nts GLUCOSE (test code = 2217) 78 MG/DL BUN (test code = 2208) 13 MG/DL CREATININE (test code = 2214) 0.96 MG/DL eGFR (2020 CKD-EPI) (test co de = 58098) 71 ML/MIN/1.73 CALC BUN/CREAT (test code = 2235) 14 RATIO SODIUM (test code = 2231) 140 MEQ/L POTASSIUM (test code = 2228) 3.9 MEQ/L CHLORIDE (test code = 2215) 99 MEQ/L CARBON DIOXIDE (test code = 2206) 29 MEQ/L CALCIUM (test code = 2209) 9.5 MG/DL PROTEIN, TOTAL (test code = 2229) 7.2 G/DL ALBUMIN (test code = 2201) 4.3 G/DL CALC GLOBULIN (test code = 2240) 2.9 G/DL CALC A/G RATIO (test code = 2234) 1.5 RATIO BILIRUBIN, TOTAL (test code = 2207) 0.2 MG/DL ALKALINE PHOSPHATASE (test code = 2204) 70 U/L AST (test code = 2218) 17 U/L ALT (test code = 2219) 23 U/L Santy ChewVITAMIN D, 25 [id number] 05:24:53* Test Item Value Reference Range Interpretation Comme nts VITAMIN D, 25 OH (test code = 4958) 45 NG/ML SEE BELOW EFFECTIVE 2022, PLEASE NOTE NEW METHODOLOGY IS ELECTROCHEMILUMINESCENCE BINDING ASSAY. NOTE: 25-HYDROXYVITAMIN D ASSAY INCLUDES 25-HYDROXYVITAMIN D2 AND D3. INTERPRETIVE RANGES PEDIATRIC (<17 YEARS) . . . . . . . . . . . NG/ML 20-100ADULT: INSUFFICIENT . . . . . . . . . . . . . . NG/ML <20 SUBOPTIMAL . . . . . . . . . . . . . . . NG/ML 20-29 OPTIMAL . . . . . . . . . . . . . . . . . NG/ML 30-100 UNLESS OTHERWISE INDICATED, ALL TESTING PERFORMED AT [facility] [address] [place] [address] METER/RELAY CRAFTSMAN: KAJAL LOCKE M.D. CLIA NUMBER [id number] [facility] [place]. [id number] TSH, THIRD [id number] 04:26:39* Test Item Value Reference Range Interpretation Comme nts TSH, THIRD GENERATION (test code = 2821) 2.070 UIU/ML 0.400-4.100 LIPID [id number] 04:24:29* Test Item Value Reference Range Interpretation Comme nts CHOLESTEROL (test code = 2210) 149 MG/DL <200 TRIGLYCERIDES (test code = 2232) 147 MG/DL <150 HDL CHOLESTEROL (test code = 2220) 38 MG/DL >39 L CALC LDL CHOL (test code = 2237) 87 MG/DL <100 NOTE: CALCULATED LDL IS BASED ON JOSE-MERCER METHOD WHICHINCLUDES ADJUSTABLE TRIGLYCERIDE:VLDL CHOLESTEROL RATIO.THIS FACTOR VARIES BY MEASURED TRIGLYCERIDE AND NON-HDLCHOLESTEROL CONCENTRATIONS WITH INCREASED CALCULATED LDL SEENIN HIGHER TRIGLYCERIDE OR LOWER NON-HDL SPECIMENS. FOR MOREINFORMATION, SEE CLIENT ANNOUNCEMENT AT [email or web address] RATIO LDL/HDL (test code = 2238) 2.29 RATIO <3.22 COMPREHENSIVE METABOLIC [id number] 04:24:29* Test Item Value Reference Range Interpretation Comme nts GLUCOSE (test code = 2217) 85 MG/DL 70-99 BUN (test code = 2208) 16 MG/DL 6-20 CREATININE (test code = 2214) 0.86 MG/DL 0.60-1.30 eGFR (2020 CKD-EPI) (test co de = 94719) 81 ML/MIN/1.73 >60 CALC BUN/CREAT (test code = 2235) 19 RATIO 6-28 SODIUM (test code = 2231) 140 MEQ/L 133-146 POTASSIUM (test code = 2228) 4.1 MEQ/L 3.5-5.4 CHLORIDE (test code = 2215) 103 MEQ/L 95-107 CARBON DIOXIDE (test code = 2206) 25 MEQ/L 19-31 CALCIUM (test code = 2209) 9.8 MG/DL 8.5-10.5 PROTEIN, TOTAL (test code = 2229) 7.1 G/DL 6.1-8.3 ALBUMIN (test code = 2201) 4.1 G/DL 3.5-5.2 CALC GLOBULIN (test code = 2240) 3.0 G/DL 1.9-3.7 CALC A/G RATIO (test code = 2233) 1.4 RATIO 1.0-2.6 BILIRUBIN, TOTAL (test code = 2206) 0.3 MG/DL <=1.2 ALKALINE PHOSPHATASE (test code = 2203) 73 U/L 40-132 AST (test code = 2218) 19 U/L 9-40 ALT (test code = 2219) 24 U/L 5-40 HEMOGLOBIN [id number] 03:29:43* Test Item Value Reference Range Interpretation Comme nts HEMOGLOBIN A1c (test code = 89777) 5.9 % 4.2-5.6 H [employer] GUIDELINES FOR HGB A1C: PREDIABETES/INCREASED RISK . . . . . . . 5.7-6.4% DIAGNOSIS OF DIABETES . . . . . . . . . >=6.5% WITH CONFIRMATION OR APPROPRIATE SYMPTOMS NOTE: ASSAY MAY BE AFFECTED BY HEMOGLOBINOPATHIES (SICKLE CELL ANEMIA, S-C DISEASE, OTHERS) OR ARTIFICIALLY LOWERED BY DECREASED RED CELL SURVIVAL (HEMOLYTIC ANEMIAS, BLOOD LOSS, ETC.). CONSIDER ALTERNATE TESTING OR LABORATORY CONSULTATION. CBC W/AUTO DIFF WITH [id number] 02:03:36* Test Item Value Reference Range Interpretation Comme nts WBC (test code = 1001) 7.7 K/UL 3.5-11.0 RBC (test code = 1002) 4.82 M/UL 3.80-5.40 HEMOGLOBIN (test code = 1003) 15.2 G/DL 11.5-15.5 HEMATOCRIT (test code = 1004) 45.3 % 34.0-45.0 H MCV (test code = 1005) 94.0 fL 80.0-99.0 MCH (test code = 1006) 31.5 PG 25.0-33.0 MCHC (test code = 1007) 33.6 G/DL 31.0-36.0 RDW (test code = 1038) 12.1 % 11.5-15.0 NEUTROPHILS (test code = 1008) 52.4 % LYMPHOCYTES (test code = 1010) 33.0 % MONOCYTES (test code = 1011) 9.8 % EOSINOPHILS (test code = 1012) 3.5 % BASOPHILS (test code = 1013) 0.9 % IMMATURE GRANULOCYTES (test code = 1036) 0.4 % NUCLEATED RBCS (test code = 1065) 0.0 /100 WBC'S See_Comment [Automated messa ge] The system which generated this result transmitted reference range: 0.0. The reference range was not used to interpret this result as normal/abnormal. PLATELET COUNT (test code = 1015) 185 K/UL 130-400 ABSOLUTE NEUTROPHILS (test code = 1066) 4.05 K/UL 1.50-7.50 ABSOLUTE LYMPHOCYTES (test code = 1067) 2.55 K/UL 1.00-4.00 ABSOLUTE MONOCYTES (test code = 1068) 0.76 K/UL 0.20-1.00 ABSOLUTE EOSINOPHILS (test code = 1040) 0.27 K/UL 0.00-0.50 ABSOLUTE BASOPHILS (test code = 1069) 0.07 K/UL 0.00-0.20 ABS IMMATURE GRANULOCYTES (test code = 1020) 0.03 K/UL 0.00-0.10 ABS NUCLEATED RBCS (test code = 32424) 0.00 K/UL 0.00-0.11 TSH, THIRD [id number] 00:00:00* Test Item Value Reference Range Interpretation Comme nts TSH, THIRD GENERATION (test code = 2821) 2.070 UIU/ML Santy ChewVITAMIN D, 25 [id number] 00:00:00* Test Item Value Reference Range Interpretation Comme nts VITAMIN D, 25 OH (test code = 4958) 45 NG/ML Santy ChewCBC W/AUTO [id number] 00:00:00* Test Item Value Reference Range Interpretation Comme nts WBC (test code = 1001) 7.7 K/UL RBC (test code = 1002) 4.82 M/UL HEMOGLOBIN (test code = 1003) 15.2 G/DL HEMATOCRIT (test code = 1004) 45.3 % MCV (test code = 1005) 94.0 fL MCH (test code = 1006) 31.5 PG MCHC (test code = 1007) 33.6 G/DL RDW (test code = 1038) 12.1 % NEUTROPHILS (test code = 1008) 52.4 % LYMPHOCYTES (test code = 1010) 33.0 % MONOCYTES (test code = 1011) 9.8 % EOSINOPHILS (test code = 1012) 3.5 % BASOPHILS (test code = 1013) 0.9 % IMMATURE GRANULOCYTES (test code = 1036) 0.4 % NUCLEATED RBCS (test code = 1065) 0.0 /100WBC'S PLATELET COUNT (test code = 1015) 185 K/UL ABSOLUTE NEUTROPHILS (test c ode = 1066) 4.05 K/UL ABSOLUTE LYMPHOCYTES (test c ode = 1067) 2.55 K/UL ABSOLUTE MONOCYTES (test cod e = 1068) 0.76 K/UL ABSOLUTE EOSINOPHILS (test c ode = 1040) 0.27 K/UL ABSOLUTE BASOPHILS (test cod e = 1069) 0.07 K/UL ABS IMMATURE GRANULOCYTES (t est code = 1020) 0.03 K/UL ABS NUCLEATED RBCS (test cod e = 83205) 0.00 K/UL Santy ChewHEMOGLOBIN [id number] 00:00:00* Test Item Value Reference Range Interpretation Comme nts HEMOGLOBIN A1c (test code = 57460) 5.9 % Santy ChewLIPID [id number] 00:00:00* Test Item Value Reference Range Interpretation Comme nts CHOLESTEROL (test code = 2210) 149 MG/DL TRIGLYCERIDES (test code = 2232) 147 MG/DL HDL CHOLESTEROL (test code = 2220) 38 MG/DL CALC LDL CHOL (test code = 2237) 87 MG/DL RISK RATIO LDL/HDL (test cod e = 2238) 2.29 RATIO Santy ChewCOMPREHENSIVE METABOLIC [id number] 00:00:00* Test Item Value Reference Range Interpretation Comme nts GLUCOSE (test code = 2217) 85 MG/DL BUN (test code = 2208) 16 MG/DL CREATININE (test code = 2214) 0.86 MG/DL eGFR (2020 CKD-EPI) (test co de = 09235) 81 ML/MIN/1.73 CALC BUN/CREAT (test code = 2235) 19 RATIO SODIUM (test code = 2231) 140 MEQ/L POTASSIUM (test code = 2228) 4.1 MEQ/L CHLORIDE (test code = 2215) 103 MEQ/L CARBON DIOXIDE (test code = 2206) 25 MEQ/L CALCIUM (test code = 2209) 9.8 MG/DL PROTEIN, TOTAL (test code = 2229) 7.1 G/DL ALBUMIN (test code = 2201) 4.1 G/DL CALC GLOBULIN (test code = 2240) 3.0 G/DL CALC A/G RATIO (test code = 2234) 1.4 RATIO BILIRUBIN, TOTAL (test code = 2207) 0.3 MG/DL ALKALINE PHOSPHATASE (test code = 2204) 73 U/L AST (test code = 2218) 19 U/L ALT (test code = 2219) 24 U/L Santy ChewTSH, THIRD [id number] 00:00:00* Test Item Value Reference Range Interpretation Comme nts TSH, THIRD GENERATION (test code = 2821) 2.070 UIU/ML Santy ChewVITAMIN D, 25 [id number] 00:00:00* Test Item Value Reference Range Interpretation Comme nts VITAMIN D, 25 OH (test code = 4958) 45 NG/ML Santy ChewCBC W/AUTO [id number] 00:00:00* Test Item Value Reference Range Interpretation Comme nts WBC (test code = 1001) 7.7 K/UL RBC (test code = 1002) 4.82 M/UL HEMOGLOBIN (test code = 1003) 15.2 G/DL HEMATOCRIT (test code = 1004) 45.3 % MCV (test code = 1005) 94.0 fL MCH (test code = 1006) 31.5 PG MCHC (test code = 1007) 33.6 G/DL RDW (test code = 1038) 12.1 % NEUTROPHILS (test code = 1008) 52.4 % LYMPHOCYTES (test code = 1010) 33.0 % MONOCYTES (test code = 1011) 9.8 % EOSINOPHILS (test code = 1012) 3.5 % BASOPHILS (test code = 1013) 0.9 % IMMATURE GRANULOCYTES (test code = 1036) 0.4 % NUCLEATED RBCS (test code = 1065) 0.0 /100WBC'S PLATELET COUNT (test code = 1015) 185 K/UL ABSOLUTE NEUTROPHILS (test c ode = 1066) 4.05 K/UL ABSOLUTE LYMPHOCYTES (test c ode = 1067) 2.55 K/UL ABSOLUTE MONOCYTES (test cod e = 1068) 0.76 K/UL ABSOLUTE EOSINOPHILS (test c ode = 1040) 0.27 K/UL ABSOLUTE BASOPHILS (test cod e = 1069) 0.07 K/UL ABS IMMATURE GRANULOCYTES (t est code = 1020) 0.03 K/UL ABS NUCLEATED RBCS (test cod e = 09648) 0.00 K/UL Santy ChewHEMOGLOBIN [id number] 00:00:00* Test Item Value Reference Range Interpretation Comme nts HEMOGLOBIN A1c (test code = 45482) 5.9 % Santy ChewLIPID [id number] 00:00:00* Test Item Value Reference Range Interpretation Comme nts CHOLESTEROL (test code = 2210) 149 MG/DL TRIGLYCERIDES (test code = 2232) 147 MG/DL HDL CHOLESTEROL (test code = 2220) 38 MG/DL CALC LDL CHOL (test code = 2237) 87 MG/DL RISK RATIO LDL/HDL (test cod e = 2238) 2.29 RATIO Santy ChewCOMPREHENSIVE METABOLIC [id number] 00:00:00* Test Item Value Reference Range Interpretation Comme nts GLUCOSE (test code = 2217) 85 MG/DL BUN (test code = 2208) 16 MG/DL CREATININE (test code = 2214) 0.86 MG/DL eGFR (2020 CKD-EPI) (test co de = 01070) 81 ML/MIN/1.73 CALC BUN/CREAT (test code = 2235) 19 RATIO SODIUM (test code = 2231) 140 MEQ/L POTASSIUM (test code = 2228) 4.1 MEQ/L CHLORIDE (test code = 2215) 103 MEQ/L CARBON DIOXIDE (test code = 2206) 25 MEQ/L CALCIUM (test code = 2209) 9.8 MG/DL PROTEIN, TOTAL (test code = 2229) 7.1 G/DL ALBUMIN (test code = 2201) 4.1 G/DL CALC GLOBULIN (test code = 2240) 3.0 G/DL CALC A/G RATIO (test code = 2234) 1.4 RATIO BILIRUBIN, TOTAL (test code = 2207) 0.3 MG/DL ALKALINE PHOSPHATASE (test code = 2204) 73 U/L AST (test code = 2218) 19 U/L ALT (test code = 2219) 24 U/L Santy Pagan, THIRD [id number] 05:25:24* Test Item Value Reference Range Interpretation Comme nts TSH, THIRD GENERATION (test code = 2821) 1.750 UIU/ML 0.400-4.100 [facility] has impo rtant pathology staff changes effective 07/21/2022. New pathology staff will provide uninterrupted, excellent patient care and clinical consultation. See URL: [email or web address] UNLESS OTHERWISE INDICATED, ALL TESTING PERFORMED AT [facility] [address] [place] [address] METER/RELAY CRAFTSMAN: KAJAL LOCKE M.D. [facility] NUMBER [id number] [facility] [place]. [id number] HEMOGLOBIN [id number] 04:59:50* Test Item Value Reference Range Interpretation Comme nts HEMOGLOBIN A1c (test code = 89180) 5.8 % 4.2-5.6 H [employer] GUIDELINES FOR HGB A1C: PREDIABETES/INCREASED RISK . . . . . . . 5.7-6.4% DIAGNOSIS OF DIABETES . . . . . . . . . >=6.5% WITH CONFIRMATION OR APPROPRIATE SYMPTOMS NOTE: ASSAY MAY BE AFFECTED BY HEMOGLOBINOPATHIES (SICKLE CELL ANEMIA, S-C DISEASE, OTHERS) OR ARTIFICIALLY LOWERED BY DECREASED RED CELL SURVIVAL (HEMOLYTIC ANEMIAS, BLOOD LOSS, ETC.). CONSIDER ALTERNATE TESTING OR LABORATORY CONSULTATION. LIPID [id number] 03:46:00* Test Item Value Reference Range Interpretation Comme nts CHOLESTEROL (test code = 2210) 156 MG/DL <200 TRIGLYCERIDES (test code = 2232) 193 MG/DL <150 H HDL CHOLESTEROL (test code = 2220) 37 MG/DL >39 L CALC LDL CHOL (test code = 2237) 90 MG/DL <100 NOTE: CALCULATED LDL IS BASED ON JOSE-MERCER METHOD WHICHINCLUDES ADJUSTABLE TRIGLYCERIDE:VLDL CHOLESTEROL RATIO.THIS FACTOR VARIES BY MEASURED TRIGLYCERIDE AND NON-HDLCHOLESTEROL CONCENTRATIONS WITH INCREASED CALCULATED LDL SEENIN HIGHER TRIGLYCERIDE OR LOWER NON-HDL SPECIMENS. FOR MOREINFORMATION, SEE CLIENT ANNOUNCEMENT AT [email or web address] [email or web address] RATIO LDL/HDL (test code = 2238) 2.43 RATIO <3.22 COMPREHENSIVE METABOLIC [id number] 03:46:00* Test Item Value Reference Range Interpretation Comme nts GLUCOSE (test code = 2216) 76 MG/DL 70-99 BUN (test code = 2207) 15 MG/DL 6-20 CREATININE (test code = 2213) 1.10 MG/DL 0.60-1.30 eGFR (2020 CKD-EPI) (test code = 87674) 61 ML/MIN/1.73 >60 CALC BUN/CREAT (test code = 2234) 14 RATIO 6-28 SODIUM (test code = 2230) 143 MEQ/L 133-146 POTASSIUM (test code = 2227) 4.5 MEQ/L 3.5-5.4 CHLORIDE (test code = 2214) 101 MEQ/L 95-107 CARBON DIOXIDE (test code = 2205) 28 MEQ/L 19-31 CALCIUM (test code = 2208) 9.8 MG/DL 8.5-10.5 PROTEIN, TOTAL (test code = 2228) 7.5 G/DL 6.1-8.3 ALBUMIN (test code = 2200) 4.5 G/DL 3.5-5.2 CALC GLOBULIN (test code = 2239) 3.0 G/DL 1.9-3.7 CALC A/G RATIO (test code = 2233) 1.5 RATIO 1.0-2.6 BILIRUBIN, TOTAL (test code = 2206) 0.3 MG/DL See_Comment [Automated me ssage] The system which generated this result transmitted reference range: <=1.2. The reference range was not used to interpret this result as normal/abnormal. ALKALINE PHOSPHATASE (test code = 2203) 86 U/L 40-130 AST (test code = 2217) 33 U/L 9-40 ALT (test code = 2219) 55 U/L 5-40 H CBC W/AUTO DIFF WITH [id number] 03:40:09* Test Item Value Reference Range Interpretation Comme nts WBC (test code = 1001) 10.1 K/UL 3.5-11.0 RBC (test code = 1002) 5.08 M/UL 3.80-5.40 HEMOGLOBIN (test code = 1003) 16.2 G/DL 11.5-15.5 H HEMATOCRIT (test code = 1004) 47.9 % 34.0-45.0 H MCV (test code = 1005) 94.3 fL 80.0-99.0 MCH (test code = 1006) 31.9 PG 25.0-33.0 MCHC (test code = 1007) 33.8 G/DL 31.0-36.0 RDW (test code = 1038) 12.0 % 11.5-15.0 NEUTROPHILS (test code = 1008) 60.5 % LYMPHOCYTES (test code = 1010) 26.4 % MONOCYTES (test code = 1011) 8.8 % EOSINOPHILS (test code = 1012) 2.9 % BASOPHILS (test code = 1013) 1.1 % IMMATURE GRANULOCYTES (test code = 1036) 0.3 % NUCLEATED RBCS (test code = 1065) 0.0 /100 WBC'S See_Comment [Automated messa ge] The system which generated this result transmitted reference range: 0.0. The reference range was not used to interpret this result as normal/abnormal. PLATELET COUNT (test code = 1015) 216 K/UL 130-400 ABSOLUTE NEUTROPHILS (test code = 1066) 6.13 K/UL 1.50-7.50 ABSOLUTE LYMPHOCYTES (test code = 1067) 2.67 K/UL 1.00-4.00 ABSOLUTE MONOCYTES (test code = 1068) 0.89 K/UL 0.20-1.00 ABSOLUTE EOSINOPHILS (test code = 1040) 0.29 K/UL 0.00-0.50 ABSOLUTE BASOPHILS (test code = 1069) 0.11 K/UL 0.00-0.20 ABS IMMATURE GRANULOCYTES (test code = 1020) 0.03 K/UL 0.00-0.10 ABS NUCLEATED RBCS (test code = 30018) 0.00 K/UL 0.00-0.11 CBC W/AUTO [id number] 00:00:00* Test Item Value Reference Range Interpretation Comme nts WBC (test code = 1001) 10.1 K/UL RBC (test code = 1002) 5.08 M/UL HEMOGLOBIN (test code = 1003) 16.2 G/DL HEMATOCRIT (test code = 1004) 47.9 % MCV (test code = 1005) 94.3 fL MCH (test code = 1006) 31.9 PG MCHC (test code = 1007) 33.8 G/DL RDW (test code = 1038) 12.0 % NEUTROPHILS (test code = 1008) 60.5 % LYMPHOCYTES (test code = 1010) 26.4 % MONOCYTES (test code = 1011) 8.8 % EOSINOPHILS (test code = 1012) 2.9 % BASOPHILS (test code = 1013) 1.1 % IMMATURE GRANULOCYTES (test code = 1036) 0.3 % NUCLEATED RBCS (test code = 1065) 0.0 /100WBC'S PLATELET COUNT (test code = 1015) 216 K/UL ABSOLUTE NEUTROPHILS (test c ode = 1066) 6.13 K/UL ABSOLUTE LYMPHOCYTES (test c ode = 1067) 2.67 K/UL ABSOLUTE MONOCYTES (test cod e = 1068) 0.89 K/UL ABSOLUTE EOSINOPHILS (test c ode = 1040) 0.29 K/UL ABSOLUTE BASOPHILS (test cod e = 1069) 0.11 K/UL ABS IMMATURE GRANULOCYTES (t est code = 1020) 0.03 K/UL ABS NUCLEATED RBCS (test cod e = 41836) 0.00 K/UL Santy ChewHEMOGLOBIN [id number] 00:00:00* Test Item Value Reference Range Interpretation Comme nts HEMOGLOBIN A1c (test code = 28973) 5.8 % Santy ChewLIPID [id number] 00:00:00* Test Item Value Reference Range Interpretation Comme nts CHOLESTEROL (test code = 2210) 156 MG/DL TRIGLYCERIDES (test code = 2232) 193 MG/DL HDL CHOLESTEROL (test code = 2220) 37 MG/DL CALC LDL CHOL (test code = 2237) 90 MG/DL RISK RATIO LDL/HDL (test cod e = 2238) 2.43 RATIO Santy ChewCOMPREHENSIVE METABOLIC [id number] 00:00:00* Test Item Value Reference Range Interpretation Comme nts GLUCOSE (test code = 2217) 76 MG/DL BUN (test code = 2208) 15 MG/DL CREATININE (test code = 2214) 1.10 MG/DL eGFR (2020 CKD-EPI) (test co de = 21300) 61 ML/MIN/1.73 CALC BUN/CREAT (test code = 2235) 14 RATIO SODIUM (test code = 2231) 143 MEQ/L POTASSIUM (test code = 2228) 4.5 MEQ/L CHLORIDE (test code = 2215) 101 MEQ/L CARBON DIOXIDE (test code = 2206) 28 MEQ/L CALCIUM (test code = 2209) 9.8 MG/DL PROTEIN, TOTAL (test code = 2229) 7.5 G/DL ALBUMIN (test code = 2201) 4.5 G/DL CALC GLOBULIN (test code = 2240) 3.0 G/DL CALC A/G RATIO (test code = 2234) 1.5 RATIO BILIRUBIN, TOTAL (test code = 2207) 0.3 MG/DL ALKALINE PHOSPHATASE (test code = 2204) 86 U/L AST (test code = 2218) 33 U/L ALT (test code = 2219) 55 U/L Santy ChewTSH, THIRD [id number] 00:00:00* Test Item Value Reference Range Interpretation Comme nts TSH, THIRD GENERATION (test code = 2821) 1.750 UIU/ML Santy ChewCBC W/AUTO [id number] 00:00:00* Test Item Value Reference Range Interpretation Comme nts WBC (test code = 1001) 10.1 K/UL RBC (test code = 1002) 5.08 M/UL HEMOGLOBIN (test code = 1003) 16.2 G/DL HEMATOCRIT (test code = 1004) 47.9 % MCV (test code = 1005) 94.3 fL MCH (test code = 1006) 31.9 PG MCHC (test code = 1007) 33.8 G/DL RDW (test code = 1038) 12.0 % NEUTROPHILS (test code = 1008) 60.5 % LYMPHOCYTES (test code = 1010) 26.4 % MONOCYTES (test code = 1011) 8.8 % EOSINOPHILS (test code = 1012) 2.9 % BASOPHILS (test code = 1013) 1.1 % IMMATURE GRANULOCYTES (test code = 1036) 0.3 % NUCLEATED RBCS (test code = 1065) 0.0 /100WBC'S PLATELET COUNT (test code = 1015) 216 K/UL ABSOLUTE NEUTROPHILS (test c ode = 1066) 6.13 K/UL ABSOLUTE LYMPHOCYTES (test c ode = 1067) 2.67 K/UL ABSOLUTE MONOCYTES (test cod e = 1068) 0.89 K/UL ABSOLUTE EOSINOPHILS (test c ode = 1040) 0.29 K/UL ABSOLUTE BASOPHILS (test cod e = 1069) 0.11 K/UL ABS IMMATURE GRANULOCYTES (t est code = 1020) 0.03 K/UL ABS NUCLEATED RBCS (test cod e = 14851) 0.00 K/UL Santy ChewHEMOGLOBIN [id number] 00:00:00* Test Item Value Reference Range Interpretation Comme nts HEMOGLOBIN A1c (test code = 64111) 5.8 % Santy ChewLIPID [id number] 00:00:00* Test Item Value Reference Range Interpretation Comme nts CHOLESTEROL (test code = 2210) 156 MG/DL TRIGLYCERIDES (test code = 2232) 193 MG/DL HDL CHOLESTEROL (test code = 2220) 37 MG/DL CALC LDL CHOL (test code = 2237) 90 MG/DL RISK RATIO LDL/HDL (test cod e = 2238) 2.43 RATIO Santy ChewCOMPREHENSIVE METABOLIC [id number] 00:00:00* Test Item Value Reference Range Interpretation Comme nts GLUCOSE (test code = 2217) 76 MG/DL BUN (test code = 2208) 15 MG/DL CREATININE (test code = 2214) 1.10 MG/DL eGFR (2020 CKD-EPI) (test co de = 47363) 61 ML/MIN/1.73 CALC BUN/CREAT (test code = 2235) 14 RATIO SODIUM (test code = 2231) 143 MEQ/L POTASSIUM (test code = 2228) 4.5 MEQ/L CHLORIDE (test code = 2215) 101 MEQ/L CARBON DIOXIDE (test code = 2206) 28 MEQ/L CALCIUM (test code = 2209) 9.8 MG/DL PROTEIN, TOTAL (test code = 2229) 7.5 G/DL ALBUMIN (test code = 2201) 4.5 G/DL CALC GLOBULIN (test code = 2240) 3.0 G/DL CALC A/G RATIO (test code = 2234) 1.5 RATIO BILIRUBIN, TOTAL (test code = 2207) 0.3 MG/DL ALKALINE PHOSPHATASE (test code = 2204) 86 U/L AST (test code = 2218) 33 U/L ALT (test code = 2219) 55 U/L Santy ChewALTHEA, THIRD [id number] 00:00:00* Test Item Value Reference Range Interpretation Comme nts TSH, THIRD GENERATION (test code = 2821) 1.750 UIU/ML Santy [id number] 00:00:00* Test Item Value Reference Range Interpretation Comme nts TSH, THIRD GENERATION (test code = 2821) 2.150 UIU/ML Santy [id number] 00:00:00* Test Item Value Reference Range Interpretation Comme nts TSH, THIRD GENERATION (test code = 2821) 2.150 UIU/ML Santy Stokes AustinH. PYLORI (BREATH)2020-04-03 00:00:00* Test Item Value Reference Range Interpretation Comme nts H. PYLORI (BREATH) (test cod e = 46985) NEGATIVE Santy Stokes AustinH. PYLORI (BREATH)2020-04-03 00:00:00* Test Item Value Reference Range Interpretation Comme nts H. PYLORI (BREATH) (test cod e = 96331) NEGATIVE Santy ChewACUTE HEPATITIS [id number] 00:00:00* Test Item Value Reference Range Interpretation Comme nts HEPATITIS A IgM (test code = 04207) NON-REACTIVE HEPATITIS B CORE IgM (test c ode = 4644) NON-REACTIVE HEPATITIS B SURF AG (test co de = 2739) NON-REACTIVE HEPATITIS C ANTIBODY (test c ode = 4675) NON-REACTIVE INTERPRETATION HEPATITIS A: (test code = 2552) (NOTE) INTERPRETATION HEPATITIS B: (test code = 20867) (NOTE) INTERPRETATION HEPATITIS C: (test code = 04757) (NOTE) Santy ChewACUTE HEPATITIS [id number] 00:00:00* Test Item Value Reference Range Interpretation Comme nts HEPATITIS A IgM (test code = 85663) NON-REACTIVE HEPATITIS B CORE IgM (test c ode = 4644) NON-REACTIVE HEPATITIS B SURF AG (test co de = 2739) NON-REACTIVE HEPATITIS C ANTIBODY (test c ode = 4675) NON-REACTIVE INTERPRETATION HEPATITIS A: (test code = 2552) (NOTE) INTERPRETATION HEPATITIS B: (test code = 97421) (NOTE) INTERPRETATION HEPATITIS C: (test code = 22187) (NOTE) Santy ChewCBC W/AUTO [id number] 00:00:00* Test Item Value Reference Range Interpretation Comme nts WBC (test code = 1001) 9.6 K/UL RBC (test code = 1002) 4.43 M/UL HEMOGLOBIN (test code = 1003) 14.1 G/DL HEMATOCRIT (test code = 1004) 41.6 % MCV (test code = 1005) 93.9 fL MCH (test code = 1006) 31.8 PG MCHC (test code = 1007) 33.9 G/DL RDW (test code = 1038) 12.5 % NEUTROPHILS (test code = 1008) 56.1 % LYMPHOCYTES (test code = 1010) 31.5 % MONOCYTES (test code = 1011) 8.1 % EOSINOPHILS (test code = 1012) 3.3 % BASOPHILS (test code = 1013) 1.0 % PLATELET COUNT (test code = 1015) 230 K/UL Santy ChewCOMPREHENSIVE METABOLIC [id number] 00:00:00* Test Item Value Reference Range Interpretation Comme nts GLUCOSE (test code = 2217) 122 MG/DL BUN (test code = 2208) 14 MG/DL CREATININE (test code = 2214) 1.05 MG/DL eGFR AMER. (test cod e = 10307) 73 ML/MIN/1.73 eGFR NON- AMER. (test code = 05353) 63 ML/MIN/1.73 CALC BUN/CREAT (test code = 2235) 13 RATIO SODIUM (test code = 2231) 137 MEQ/L POTASSIUM (test code = 2228) 4.1 MEQ/L CHLORIDE (test code = 2215) 102 MEQ/L CARBON DIOXIDE (test code = 2206) 25 MEQ/L CALCIUM (test code = 2209) 9.7 MG/DL PROTEIN, TOTAL (test code = 2229) 6.9 G/DL ALBUMIN (test code = 2201) 4.1 G/DL CALC GLOBULIN (test code = 2240) 2.8 G/DL CALC A/G RATIO (test code = 2234) 1.5 RATIO BILIRUBIN, TOTAL (test code = 2207) <0.2 MG/DL ALKALINE PHOSPHATASE (test code = 2204) 79 U/L AST (test code = 2218) 57 U/L ALT (test code = 2219) 114 U/L Santy [id number] 00:00:00* Test Item Value Reference Range Interpretation Comme nts AMYLASE (test code = 2205) 65 U/L Santy Stokes [id number] 00:00:00* Test Item Value Reference Range Interpretation Comme nts LIPASE (test code = 2058) 31 U/L Santy ChewURINALYSIS WITH [id number] 00:00:00* Test Item Value Reference Range Interpretation Comme nts COLOR (test code = 1501) YELLOW APPEARANCE (test code = 1502) CLEAR SPECIFIC GRAVITY (test code = 1503) 1.016 LEUKOCYTE ESTERASE (test cod e = 1504) NEGATIVE NITRITE (test code = 1505) NEGATIVE pH (test code = 1506) 6.0 PROTEIN (test code = 1507) NEGATIVE GLUCOSE (test code = 1508) NEGATIVE KETONES (test code = 1509) NEGATIVE UROBILINOGEN (test code = 1510) <2.0 MG/DL BILIRUBIN (test code = 1511) NEGATIVE OCCULT BLOOD (test code = 1512) NEGATIVE WHITE BLOOD CELLS (test code = 1513) 0-5 /HPF EPITHELIAL CELLS (test code = 54168) 0-5 /HPF BACTERIA (test code = 1515) TRACE CASTS,HYALINE (test code = 1517) FEW /LPF Santy ChewCBC W/AUTO [id number] 00:00:00* Test Item Value Reference Range Interpretation Comme nts WBC (test code = 1001) 9.6 K/UL RBC (test code = 1002) 4.43 M/UL HEMOGLOBIN (test code = 1003) 14.1 G/DL HEMATOCRIT (test code = 1004) 41.6 % MCV (test code = 1005) 93.9 fL MCH (test code = 1006) 31.8 PG MCHC (test code = 1007) 33.9 G/DL RDW (test code = 1038) 12.5 % NEUTROPHILS (test code = 1008) 56.1 % LYMPHOCYTES (test code = 1010) 31.5 % MONOCYTES (test code = 1011) 8.1 % EOSINOPHILS (test code = 1012) 3.3 % BASOPHILS (test code = 1013) 1.0 % PLATELET COUNT (test code = 1015) 230 K/UL Santy ChewCOMPREHENSIVE METABOLIC [id number] 00:00:00* Test Item Value Reference Range Interpretation Comme nts GLUCOSE (test code = 2217) 122 MG/DL BUN (test code = 2208) 14 MG/DL CREATININE (test code = 2214) 1.05 MG/DL eGFR AMER. (test cod e = 82179) 73 ML/MIN/1.73 eGFR NON- AMER. (test code = 72807) 63 ML/MIN/1.73 CALC BUN/CREAT (test code = 2235) 13 RATIO SODIUM (test code = 2231) 137 MEQ/L POTASSIUM (test code = 2228) 4.1 MEQ/L CHLORIDE (test code = 2215) 102 MEQ/L CARBON DIOXIDE (test code = 2206) 25 MEQ/L CALCIUM (test code = 2209) 9.7 MG/DL PROTEIN, TOTAL (test code = 222) 6.9 G/DL ALBUMIN (test code = 2201) 4.1 G/DL CALC GLOBULIN (test code = 2240) 2.8 G/DL CALC A/G RATIO (test code = 2234) 1.5 RATIO BILIRUBIN, TOTAL (test code = 220) <0.2 MG/DL ALKALINE PHOSPHATASE (test code = 2204) 79 U/L AST (test code = 2218) 57 U/L ALT (test code = 2219) 114 U/L Santy F [id number] 00:00:00* Test Item Value Reference Range Interpretation Comme nts AMYLASE (test code = 2204) 65 U/L Santy F [id number] 00:00:00* Test Item Value Reference Range Interpretation Comme nts LIPASE (test code = 2057) 31 U/L Santy F AustinURINALYSIS WITH [id number] 00:00:00* Test Item Value Reference Range Interpretation Comme nts COLOR (test code = 1501) YELLOW APPEARANCE (test code = 1502) CLEAR SPECIFIC GRAVITY (test code = 1503) 1.016 LEUKOCYTE ESTERASE (test cod e = 1504) NEGATIVE NITRITE (test code = 1505) NEGATIVE pH (test code = 1506) 6.0 PROTEIN (test code = 1507) NEGATIVE GLUCOSE (test code = 1508) NEGATIVE KETONES (test code = 1509) NEGATIVE UROBILINOGEN (test code = 1510) <2.0 MG/DL BILIRUBIN (test code = 1511) NEGATIVE OCCULT BLOOD (test code = 1512) NEGATIVE WHITE BLOOD CELLS (test code = 1513) 0-5 /HPF EPITHELIAL CELLS (test code = 20019) 0-5 /HPF BACTERIA (test code = 1515) TRACE CASTS,HYALINE (test code = 1517) FEW /LPF Santy Pope, [id number] 00:00:00* Test Item Value Reference Range Interpretation Comme nts CULTURE, URINE (test code = 36858) SPECIMEN NUMBER: [id number] Santy Pope, [id number] 00:00:00* Test Item Value Reference Range Interpretation Comme nts CULTURE, URINE (test code = 78222) SPECIMEN NUMBER: [id number] Santy Chew Notes Date/Time Note Provider Source Santy Helton [facility]2025-01-30 00:00:00 Santy Helton [facility]2024-01-22 13:22:26 Routed message to the provider to review and address. Lenora Sanchez 06/13/2023 1:22 PM [facility]
--- NOTE | 2024-10-06 11:55 | ER ---
Nurse's Notes [facility] Name: Bethany Saeed Age: 54 yrs Sex: Female : 1970 Arrival Date: 10/06/2024 Time: 11:35 Bed IW1 Private MD: Diagnosis: Other allergic rhinitis Presentation: 10/06 11:48 Chief complaint: Patient states: Congestion started after weed eating. No ll1 fever. Coronavirus screen: Client denies travel out of the [place] in the last 14 days. congestion, cough unrelated to allergies, Client presents with at least one sign or symptom that may indicate coronavirus-19. Standard/surgical mask placed on the client. Ebola Screen: Patient denies travel to an Ebola-affected area in the 21 days before illness onset. Resp Distress? No respiratory distress is noted at this time. Initial Sepsis Screen: Does the patient meet any 2 criteria? No. Patient's initial sepsis screen is negative. Does the patient have a suspected source of infection? No. Patient's initial sepsis screen is negative. Risk Assessment: Do you want to hurt yourself or someone else? Patient reports no desire to harm self or others. Onset of symptoms was October 04, 2024. 11:48 Method Of Arrival: Ambulatory ll1 11:48 Acuity: ROE 4 ll1 Triage Assessment: 11:48 General: Appears uncomfortable, Behavior is calm, cooperative, appropriate for age. ll1 Pain: Complains of pain in facial Pain currently is 3 out of 10 on a pain scale. Quality of pain is described as aching. EENT: Reports nasal congestion pain in right cheek, nose and left cheek. Respiratory: Reports cough that is. 12:02 Respiratory: Breath sounds are clear bilaterally. 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 - Infectious Disease History:: Denies. - Social history:: Smoking status: Patient reports the use of cigarette tobacco products, smokes one-half pack cigarettes per day. Screenin:02 [facility] ED Fall Risk Assessment (Adult) History of falling in the last 3 months, ll1 including since admission No falls in past 3 months (0 pts) Confusion or Disorientation No (0 pts) Intoxicated or Sedated No (0 pts) Impaired Gait No (0 pts) Mobility Assist Device Used No (0 pt) Altered Elimination No (0 pt) Score/Fall Risk Level 0 - 2 = Low Risk Maintained a safe environment, Hourly rounding (assess needs \T\ fall precautionary measures) done. Abuse screen: Denies threats or abuse. Nutritional screening: No deficits noted. Tuberculosis screening: No symptoms or risk factors identified. Assessment: 12:02 Reassessment: No changes from previously documented assessment. Patient and/or family ll1 updated on plan of care and expected duration. Pain level reassessed. Patient is alert, oriented x 3, equal unlabored respirations, skin warm/dry/pink. 12:02 Cardiovascular: Patient's skin is warm and dry. Respiratory: Airway is patent Breath ll1 sounds are clear bilaterally. Vital Signs: 11:48 BP 154 / 86; Pulse 99; Resp 17; Temp 97.9; Pulse Ox 97% on R/A; Weight 106.14 kg; ll1 Height 5 ft. 6 in. ; Pain 3/10; 11:48 Body Mass Index 37.77 (106.14 kg, 167.64 cm) ll1 11:48 Pain Scale: Adult ll1 ED Course: 11:40 Patient arrived in ED. al6 11:42 Juwan Stockton FNP-C is [facility]. dr5 11:42 Marlon Adame MD is Attending Physician. dr5 11:49 Triage completed. ll1 11:49 Arm band placed on. ll1 11:53 Patient has correct armband on for positive identification. Provided Education on: ER ll1 procedures and process. 12:02 No provider procedures requiring assistance completed. Patient did not have IV access ll1 during this emergency room visit. Administered Medications: No medications were administered Medication: 12:31 VIS not applicable for this client. ll1 Outcome: 11:55 Discharge ordered by . dr5 12:02 Patient left the ED. ll1 12:02 Discharged to home ambulatory, ll1 12:02 Condition: stable 12:02 Discharge instructions given to patient, Instructed on discharge instructions, follow up and referral plans. medication usage, Demonstrated understanding of instructions, follow-up care, medications, Prescriptions given X 1, Signatures: Hesham Russell RN RN ll1 Juwan Stockton, MILITARY PAY CLERK-C MILITARY PAY CLERK-Cdr5 Na Quiles6 Corrections: (The following items were deleted from the chart) 11:48 11:47 PMHx: NIDDM; 1 1 11:48 11:47 PMHx: NIDDM; 1 1
--- NOTE | 2024-10-06 11:55 | EDPHYS ---
Physician Documentation [facility] Name: Bethany Saeed Age: 54 yrs Sex: Female : 1970 Arrival Date: 10/06/2024 Time: 11:35 Bed IW1 Private MD: ED Physician Marlon Adame HPI: 10/06 11:57 This 54 yrs old Female presents to ER via Ambulatory with complaints of dr5 Congestion. 11:57 Onset: The symptoms/episode began/occurred acutely. 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 Patient reports she was working outside in the yard when her symptoms began. Patient is currently taking Zyrtec and Flonase at home with minimal help.. GAS SINGER: 12:02 LMP N/A - control method, Not ll1 Historical: - Allergies: 11:47 PENICILLINS; ll1 11:47 Sulfa (Sulfonamide Antibiotics); ll1 - PMHx: 11:47 Depression; Bronchitis; NIDDM; Hypothyroidism; neuropathy; Anxiety; psorasis; ll1 - PSHx: 11:47 Left ankle; right knee; Cholecystectomy; section; hysterectomy; I\T\D; ll1 - Immunization history:: Adult Immunizations up to date. - Infectious Disease History:: Denies. - Social history:: Smoking status: Patient reports the use of cigarette tobacco products, smokes one-half pack cigarettes per day. ROS: 11:57 Constitutional: as per hpi dr5 Exam: 11:57 Constitutional: This is a well developed, well nourished patient who is awake, alert, dr5 and in no acute distress. Head/Face: Normocephalic, atraumatic. Eyes: Pupils equal round and reactive to light, extra-ocular motions intact. Lids and lashes normal. Conjunctiva and sclera are non-icteric and not injected. Cornea within normal limits. Periorbital areas with no swelling, redness, or edema. Chest/axilla: Normal chest wall appearance and motion. Nontender with no deformity. No lesions are appreciated. Cardiovascular: Regular rate and rhythm with a normal S1 and S2. Normal PMI, no JVD. No pulse deficits. Respiratory: Lungs have equal breath sounds bilaterally, clear to auscultation. No rales, rhonchi or wheezes noted. No increased work of breathing, no retractions or nasal flaring. Back: No spinal tenderness. No costovertebral tenderness. Full range of motion. Skin: Warm, dry with normal turgor. Normal color with no rashes, no lesions, and no evidence of cellulitis. 11:57 ENT: External ear(s): are unremarkable, Ear canal(s): are normal, TM's: are normal, Nose: is normal, Mouth: is normal, Posterior pharynx: is normal, Vital Signs: 11:48 BP 154 / 86; Pulse 99; Resp 17; Temp 97.9; Pulse Ox 97% on R/A; Weight 106.14 kg; ll1 Height 5 ft. 6 in. ; Pain 3/10; 11:48 Body Mass Index 37.77 (106.14 kg, 167.64 cm) ll1 11:48 Pain Scale: Adult ll1 MDM: 11:42 Medical Screening Exam initiated dr5 11:57 Differential diagnosis: viral Infection, bacterial infection, URI. Data reviewed: vital dr5 signs, nurses notes. I considered the following discharge prescriptions or medication management in the emergency department I discussed and recommended Over The Counter medications, Pain Medications: At this time, prescription pain medications are not recommended. Care significantly affected by the following chronic conditions: Diabetes, Hypertension, Obesity. Care significantly affected by the following Social Determinants of Health: Poor access to healthcare and/or lack of insurance, Poor access to transportation, Problems related to employment. Counseling: I had a detailed discussion with the patient and/or guardian regarding the historical points, exam findings, and any diagnostic results supporting the discharge/admit diagnosis, the presence of at least one elevated blood pressure reading (>120/80) during this emergency department visit, the need for outpatient follow up, for definitive care, a family practitioner, to return to the emergency department if symptoms worsen or persist or if there are any questions or concerns that arise at home. ED course: Patient is well-appearing. Will trial patient on short course of Medrol dose pack as well as continue taking Zyrtec and Flonase. Recommended increased hydration and alternating Tylenol Motrin as needed for pain and fever. Recommended patient follow primary care doctor.. Administered Medications: No medications were administered Disposition Summary: 10/06/24 11:55 Discharge Ordered Notes: Location: Home dr5 Condition: Stable dr5 Diagnosis - Other allergic rhinitis dr5 Followup: dr5 - With: Emergency Department - When: As needed - Reason: Worsening of condition Followup: dr5 - With: Private Physician - When: 1 - 2 days - Reason: Recheck today's complaints, Continuance of care, Re-evaluation by your physician Discharge Instructions: - Discharge Summary Sheet dr5 - Allergic Rhinitis, Adult dr5 Forms: - Medication Reconciliation Form dr5 - Patient Portal Instructions dr5 - Leadership Thank You Letter dr5 Prescriptions: - Medrol (Víctor) 4 mg Oral Tablets, Dose Pack - take 1 tablet ORAL route as directed - follow package instructions; 1 packet; dr5 Refills: 0, Product Selection Permitted Signatures: Hesham Russell RN RN ll1 Juwan Stockton, [place]-C [employer]ATING 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
[2024-10-06 12:07] VITALS: BP 154/86; TEMP 97.9; O2SAT 97
== END 2024-10-06 12:02 | disposition home or self-care (01) ==
LOC: ER 11:35
DX: J30.9 Allergic rhinitis, unspecified (principal); F17.210 Nicotine dependence, cigarettes, uncomplicated
CPT/HCPCS: 99283

== ENCOUNTER 2025-03-18 07:50 | Day surgery (SDC) | payer OTHER ==
[2025-03-15 13:19] LABS: Absolute Lymphocytes (CBC) 2.8 K/uL (0.7-4.9); Hematocrit 46.3 % (36.0-45.0); Hemoglobin 15.7 g/dL (12.0-15.0); MCH 32.0 pg (27.0-35.0); MCHC 33.8 g/dL (32.0-36.0); MCV 94.5 fL (80-100); MPV 10.8 fL (7.6-11.3); Nucleated RBC Absolute Count 0.0 (0-0); Nucleated Red Blood Cells % 0.0 % (0-0); RBC Red Blood Cell Count 4.90 M/uL (3.86-4.86); White Blood Count 8.60 thou/uL (4.3-10.9)
--- NOTE | 2025-03-15 13:22 | RAD REPORT ---
EXAM: Chest Pa And Lat (2 Views) HISTORY: 54 years Female pre op for day surgery COMPARISON: No prior exams FINDINGS: LUNGS/PLEURA: The lungs are clear. No pleural effusions or pneumothorax. No pulmonary edema. CARDIAC/MEDIASTINUM: The cardiac silhouette is within normal limits. UPPER ABDOMEN: No significant abnormality. BONES: No acute abnormality. LINES/TUBES/OTHER: N/A IMPRESSION: No evidence of acute cardiopulmonary disease.
[2025-03-15 13:37] LABS: Anion Gap 9.8 mEq/L (5.0-15.0); BUN Blood Urea Nitrogen 18.0 mg/dL (7-18); Glucose Level 93.0 mg/dL (74-106); Potassium 3.8 mEq/L (3.5-5.1)
[2025-03-18] MEDS: Ringers Lactate 1,000 ML IV ONE (08:10)
[2025-03-18] MEDS ORDERED: ONDANSETRON 4 MG/2 ML VIAL ONE (08:13)
[2025-03-18] MEDS ORDERED: KETOROLAC 30 MG/ML INJ ONE (08:13)
[2025-03-18] MEDS ORDERED: FENTANYL CITR 100 MCG/2 ML ONE (08:13)
[2025-03-18] MEDS ORDERED: LIDOCAINE 1% MPF 5 ML VIAL ONE (08:13)
[2025-03-18] MEDS ORDERED: MIDAZOLAM HCL 2 MG/2 ML INJ ONE (08:13)
[2025-03-18] MEDS: CIPROFLOXACIN 400mg IV 400 MG/200 ML BAG IV ONE (09:07)
[2025-03-18 11:26] VITALS: BP 130/62; TEMP 97; O2SAT 96
--- NOTE | 2025-03-20 10:45 | P.BOP ---
Preoperative diagnosis: Right forearm tender subQ mass 3x3cm Postoperative diagnosis: same Primary procedure: Excisional biopsy Right forearm tender subQ mass 3x3cm Estimated blood loss: <10cc Specimen: mass Findings: as above Anesthesia: General Complications: None Transferred to: Recovery Room Condition: Good
--- NOTE | 2025-03-20 21:04 | DS ---
Date of Discharge: 03/18/2025 Diagnosis: A right forearm subcutaneous tender mass that is 3 x 3 cm. Procedure: Excisional biopsy of right forearm tender subcutaneous mass. Condition: Stable. Disposition: Home. Activity: As tolerated. No heavy lifting. Discharge Instructions: Follow up in my office in 1 week. Call for appointment [phone]. Keep area dry for 48 hours, then may shower. Her medications were previously called. PATSY/HERBERT Voice ID: [id number] Report ID: [id number]
--- NOTE | 2025-03-20 21:04 | OP ---
Surgeon: Floyd Montoya MD Preoperative Diagnoses: Right forearm tender subcutaneous mass 3 x 3 cm. Postoperative Diagnosis: Right forearm tender subcutaneous mass 3 x 3 cm. Procedure: Excisional biopsy of right forearm tender subcutaneous mass 3 x 3 cm. Estimated Blood Loss: Less than 10 cc. Specimen: Mass. Anesthesia: General plus local. Complications: None. Indications: This is a case of a 54-year-old patient who came to us with a right forearm tender mass increasing in size and discomfort. She wants that excised. The benefits, alternatives, and risks o f excision fully explained, which include, but not limited to, infection, bleeding, damage to adjacen t structures, anesthesia complication, recurrence, MD, and even . She also understands this may not relieve any symptoms, she might need more than one surgical intervention. She understood, mamie d the consent. Description Of Procedure: The patient was brought to the operating room, placed in supine position. Anesthesia was induced without complication. The right forearm area was prepped and draped in steri le fashion. Local anesthesia was applied after a time-out. An incision was made in the skin. Incis ion was carried down to the subcutaneous tissue. We noticed the mass to be present, removed the mass entirely, irrigated the subcutaneous tissue, and then closed the defect with a combination of Monocr yl. Sterile dressings were over the area. Hemostasis was obtained before closure. The patient tolerated the procedure well. The patient sent to recovery in stable condition. PATSY/HERBERT Voice ID: [id number] Report ID: [id number]
== END 2025-03-18 11:20 | disposition home or self-care (01) ==
LOC: OR 07:50
PROVIDERS: ATTEND Surgery
PROC: 0JBG0ZZ Excision of Right Lower Arm Subcutaneous Tissue and Fascia, Open Approach (ICD-10-PCS; principal; 2025-03-18 09:15)
DX: R22.31 Localized swelling, mass and lump, right upper limb (principal); L90.5 Scar conditions and fibrosis of skin; I96 Gangrene, not elsewhere classified; E11.9 Type 2 diabetes mellitus without complications; M81.0 Age-related osteoporosis without current pathological fracture
CPT/HCPCS: 11403; 93005; 85025; 80048; 36415; 88304; 71046; J1885; J2704; J2003; J2250; J3010; J1100; J0744; J7120; J2405